=== PATIENT | female | born 2000 ===

== ENCOUNTER 2023-08-02 12:49 | Outpatient (OUT) | payer BC, MEDICARE, SELFPAY ==
[2023-08-02 14:23] LABS: HCG Quantitative <1 mIU/mL
== END 2023-08-02 12:50 | disposition home or self-care (01) ==
LOC: LAB 12:50
PROVIDERS: PCP Family Medicine; Visit Provider Obstetrics & Gynecology
DX: N92.6 Irregular menstruation, unspecified (principal)
CPT/HCPCS: 36415; 84702

== ENCOUNTER 2023-09-21 13:00 | Outpatient (OUT) | payer BC, SELFPAY ==
--- NOTE | 2023-09-21 13:08 | US_ITS ---
The [address] [address] Patient Name: VERONICA CHATTERJEE MRN: [id number] date: 2000 Sex: F Assigned Patient Location: US Current Patient Location: US Accession/Order Number: [id number] Exam Date: 09/21/2023 13:12 Report Date: 09/21/2023 14:35 At the request of: ROBERT GILBERT Procedure: US pelvis w/ transvaginal EXAMINATION: US pelvis w/ transvaginal HISTORY: Polycystic Ovarian Syndrome E28.2 COMPARISON: No relevant comparison available. FINDINGS: Transabdominal and transvaginal images The uterus is normal in size, contour and echotexture, anteverted. Uterus measures 8.0 4.0 x 4.5 cm. Endometrium measures 7.1 mm, normal. The right ovary measures 3.4 x 4.0 x 3.4 cm. Normal color and Doppler flow. Area of anechoic echogenicity measuring 3.2 cm, simple cysts. The left ovary measures 2.8 x 1.7 x 1.7 cm. Normal color and Doppler flow. Scattered subcentimeter follicles Trace amount of free pelvic fluid in the cul-de-sac likely physiologic in amount US/US pelvis w/ transvaginal IMPRESSION: Scattered left ovarian subcentimeter follicles. Findings do not meet criteria for polycystic ovarian morphology Electronically authenticated by: JASON BARNES Date: 09/21/2023 14:35
--- OUTSIDE RECORDS SUMMARY | 2023-09-21 13:13 | XMS_ITS | CCD ---
Author Organization [facility] Care Team Providers Care Asset Protection Manager Name Role Phone PHYSICIAN, DEFAULT Unavailable Unavailable PHYSICIAN, DEFAULT Unavailable Unavailable DYLLAN SANDOVAL AM Unavailable Unavailable DYLLAN SANDOVAL AM Unavailable Unavailable SELF, REFERRED Unavailable Unavailable SELF, REFERRED Unavailable Unavailable Michele Angulo Primary Care Unavailable Alex Cai Admitting Unavailable Alex Cai Attending Unavailable Michele Angulo Primary Care Unavailable Michele Angulo Attending Unavailable Michele Angulo Primary Care Unavailable Michele Angulo Attending Unavailable Michele Angulo Primary Care Unavailable Franks PACToney Admitting Unavailable FranksToney Calle Attending Unavailable Michele Angulo Primary Care Unavailable Alvino Estrella Admitting Unavailable Alvino Estrella Attending Unavailable CHELSEA Bee Admitting Unavailable CHELSEA Bee Attending Unavailable Michele Angulo Primary Care Unavailable Dami Hines Admitting Unavailable Dami Hines Attending Unavailable Michele Angulo Primary Care Unavailable ROBERT GILBERT Attending Unavailable Allergies Allergy Classification Reported Allergen(s) Allergy Type Date of Onset Reaction(s) Facility (1 source) Ondansetron; Translations: [Zofran] Drug Allergy [facility] Repository Problems Problem Classification Problem Date Documented Da te Episodic/Chronic Unclassified (2 sources) Unknown / UNK(Unknown) Onset: 12-19-2017 Results Test Name Value Interpretation Reference Range Facility Coding Summaryon 11-13-2022 Coding Summary HTMLBase 64 MpkqlxczZLo3tQg+PGhlYWQ +ZT8QWSJqO02diCLbyZ7sW3 NMTElOSywgQVBQTElOSyIgb dYeJE3lrMMnJYQx IC8+FW1rOEZjQlwxzWXui7D 1lGS3V00nyu1jHUkyiWL3RY BvQoHervzbg0bzbDb4UAqnT mluOyBt OWFpeF58ODZ6zO17Ox27jEE zrTAch8sqaIo1JoLrPKIfWU G2yOubJOcfc8IkZWByA19xb NTyx4V7 ZYQqpJimlLIgPxWlmYM4tP6 oPUhpunirk8wyccjiVhw8ot 92sKAjr8E3rFO1S9GkpgB8T GJvbGQg ZccafPSEaL1ujzdzd5iuupb iDrEfCFEgRYk9FVz4VGGdsX lyKwIsAE25EKT0GFSctwLkC 2FsLWFs wGzvJgL1f5M0Fg3BD9KDEuj lS8IRQZPJTOgftIX+PC90cj 17S9XeQazqKdh4WVTlWVU1r CC4wF6c PQEpCVmrn7X6mDO1L9PxqqP aoi3lq4xiJVMlAMufY87tiF Hzl8I0ZJCdgAR4ZBHrmBcbO iBzaG93 Oyc+XSTbcIrem6BpJcmnh1q uu0swiLw1CcjrXTHggoLurT plYET2g0AeAe0tLUNxkFI0m NF5rJ6e BxYkMdM3UZheM238HnHqaAA oQpbeA84kN0KnbYA+PHRyPj v6ENSewHoeFU5zH6IsEMNch mctbGVm zPzfIH8xBQYicymaBHSfwO2 jSRXeK8z7GzKeQzL2WVijY0 HvXJEjkjzmSz39zB6yTcPuY hG3LYzr R8NoukZ5HLIkxSFzTJskLXE 5B02gu6B0PSPpGKDyANS8nI X1tS6jeCesnyxcvORukYxtp mVydGlj XJazGJgmL332TFMspEppFuC vZGluZyBEYXRlOiAgMDYvMj YvMjAyMzwvdGQ+PMSiLBC9a WxlPSAn pWXaSIxaDr0xsViazOawGL3 oVJNwevghBFJjeC6bYEGdbM HdgEfcFG3lXUZdueqsp303D iAxMHB0 WRKdnQLoU2RxpF9zXgDbGYB bPKBeD7LfiDRrBAzbE870XF ouWsD8LIZxwuPoX1RsQPXje WduOiB0 c2N5Ct5Jg3SoticxH8GyfAR zRrTjIefyLUi2A6GyKgpvtM I+VA17JJFjRU81CIy6DQK6r WxlPSdi YORzK4FroR2tJnAmKMMlBPS kOyc+PHRhYmxlIHdpZHRoPS ppRMOaZfFwdFqlJT3yBz6eS GVyLWNv oLxhoSZuHlRnf5stHFLxHRc hNG3teXbmA2OpsIQ0ITFlo3 r5Ck42I85bZ0OyzNW+PGNvb OD5tDK5 cD7wOhUlLrX5CMloE186WkM zePFuAnhli3rzx1evwMj4Hp B0EXNldrDjmVpeFNU5v0HjZ d41R01m IHdpZHRoPSIxNSUiIHZhbGl siu2qlX0dYe9+BBAcmNK3jM U2zK4fPgHqWrK1BVydH097P nRvcCIv Hqkke0xqh4qrtUu0PaBjHDQ ycrIhbRhkZSB6d2OvUi70O7 IwmGtau0IxVnl3sa56yKHku 3O1jID4 F3PbZVCxmndyiPYjlYhlHY0 pCHSevncuVGRwtJ4iSDEfQ8 q8IhAoJfI6MJigU5DxbrG1U GJvbGQg AFScbFNZrZ8rvwdjn7wnuls jHaSaGLWuYDu1WWz3LXMbbN ydBbQsFJH3AsH6YLQ2gBFyf C5gdGah otuvbG5yBdw+PDX9cETfcSR ALQ3qTynfaZQ+IZEhQFR1bL ggVIsyIBUjbW9eEOUwA5k1U iAwLjA1 DHuaN1UwokK1OPQxpUNtSUS chNNOzH9neetbe0jodrsgRr GmVSVbGHl9FNd1STJvrRekT iBsZWZ0 AjK9RFO3pXXfmP6ylZrewct rdH3qUll+ChbbeJtpCCJ7AC x5R0XlUef9GUUzeOevGD9zf GFkZGlu Ds2jiEvvhUrwLK5aXTBbrla qv495SwKhi9imAXFgeNVzSX odWLB9K43wh1L9ROZxIPWcP GG8rCC4 rE0gsBcvohqhbMVjyCdcjsY xvHzbOFofSSxiI367OPCcrA rcIsUqRWh4X4XzTuz3TLWvv FljOQ6s nEMqWQwdVi0gaDedxIfuVX1 mRLMmmgesr258GrZpf8thRW VvhPBzDMsbWIV7A27ul3S7G CMwMDAw RLH1vGV8lD6otLkfirxalDN mdDsgdmVydGljYWwtYWxpZ2 89OBOspNsmLkOrkTk5P2XqF gp4PARk pGxoJD0ndONmXZwaCl6weEu taTwpJL2yEDTovcmvl967Rp Jfa3ecAHXbeKTaIEvsUIT1I 44pd6L2 OWQbYMJgZOZ7mIP7pP5xeFk nbjogbGVmdDsgdmVydGljYW okVTnxJ411EFGguEjuXdAsd GllbnQg IYboDFh0H7NeTktxlPA+PC9 8WXNpTX89aRWwpRBkk6mmqE d1SsBlOOXjIMH8uArsJPkqk 3JkZXIt S85htYDbx9Z3SVIhmZhbuNS eJqJxbTL3zG0eKJpblktrx4 fpwtpwApasd9ncox04eZ24K 29sIHdp ZHRoPSIzMCUiIHZhbGlnbj0 iwB1bGq5+ESYrkZB0jQA3uY 4iVJYiGbS7NWyrB849FxBgf CIvPjxj l3wul0rniCk3ClO9TGLwxzV biVflMFP7y8CwDm91F27lZV dpZHRoPSIyMCUiIHZhbGlnb b1eaC7e Ii8+LMVbeSE5fBO5lS1lKkB hYlK6SOlnG157FkErlUTwAp dwA56aG2AlpPT+LARfLxt5S CBzdHls RL7vlBVqRCtuCw4nOAO8DqJ vFqQkIKezE5FtUNKwisktva fofRR0ELKlSNKglA81Ty7tc DogMTBw yUTZmY1zpdhxf1qnosgrRsT rLEDxYBq4RIr8UOIkrIzlGv GpINH7IyK8JZI2oYVwgX8fd Glnbjog kQ2pC4MtVPDrnrboNo84lU9 eQsUxJmS0XZsbChp+Uk9EUk fHFAHbMNOHSXeAV0SlWiWVP BY6S2Vc Fqx1VDBfpOdbSX8pdBZkCQa aDy9bsXfnbKgjTQ1eEHRots wyQQQkuA2iYFKowCDfdZxyR F6kJJBl itxdy752KtLuPAG3JGLddYS dO9OkjI8aUxOoLFJsEWFgN6 NivLXgUVpwX927EJyyVsT7X HZlcnRp W9GjEKZmhXwoZaE2z1I4Jn2 hGc7tDH3tAFYdGR16UH53cU Lpz6G0dCJ9X1DqXSAtaoqqz mlnaHQ6 LGXmJZUxeS56nHJnKGdyAu3 il0K3e158TDUrFVDdmG38Ar 1aqJyfSGHhbUHGzS0uqkhso 2xvcjog RcOaZOViTVr9EAr3AQHkbRu dNzJyKFY1UsN2LZZ9vZJlfC 5whOgxretcyD6tXez+MjAgW WVhcnM8 A1WxQki1MHCngIclIH3vwQL wBVcwXn4piJtuxCctYX4uCD JrzidwCEIazQ8fUMCweTZau YsvMQ1w OIDtyxfvd246UhRwUES9CFP mmVBlB7XeeT1cXqAeSSIoPM GtM5WngORtKUssX522FDmkD dJ4ZHBl neVpE6RxMRYinHtuNwI3o9F 6Pf3FPV3NNET6H0KmVpb9OI GkxXciRM5vaWUcQPmxEk7jv WdodDog FQ0uKJBotnojJLLcsA1rVWW bhOUfnSakLN3pTDBcpcmix4 00MzDaERY2OQDvqQCnT5Xzh A3aJgKy WVUyMXUyA9SroMHpLOlnC34 5QSqeRrP1YGBtbnTcD6FcHN FcjRbzAjT1l5K2Wu6LdWYhM 5RmS3t7 M4YaRqzmzCN+EU79LDAmRQ3 6uIIpaATjh6hzwRr1ZjWjCM HzNRB2zDggLUcbw2IfAWGbD 29sbGFw e5Y8KSQmtOleiYLsEaZqcIC 1fN3pCKfhurwzy2zclqmbDt grl2hpze50qO30D77hEOupC HRoPSIz HDFaFCVheHbdth5oeH4fQc1 +MRYqdKF1lUI3jR1fWvMkTa D6JCyuH502AcSqmOHpIprag 2lmc3xi aYf9EsYoSPDmakGxjZchQEG 1q2CzIw25J86ySInvJRZcSJ DeYRJgQFYleBzghn3mnP2zT i8+PC9j q1yxsy51pR70gOU+PHRkIHN 4xXwvACvsPTEepI4bDFqdOr R6QQPkQjWogQ57qSWcSMreP x8zqEqe pTqfPX9yXTPkjowfc837JaK ns2ghCSHavBJmYZevZFC4N0 4yk6L3ZZDiFJByLOZ8xIK5p Q0nvEnc bjogbGVmdDsgdmVydGljYWw jPDjtP034SNAlqYxyTjCgrP LcN6vjdeNBAF0kLqfdxYO+P HRkIHN0 gNekOMqzOKKvmL3aWBIuF8x 8AqHtTvY8SVauF2FfctO4VI BpmVFyBOVjoTTZgP0gwxpgq 2xvcjog QfScYFBhSQs7FPj2JCOdzLz kYfGgUEO2RoX9DPR3cTBydS 3lnVbuqwpfwA5kFwa+RklOO jwvdGQ+ LVKtMVJ4kKxbZXveYSFhpV7 tROStX8n0UgFtXrI3JNtpK0 IkaqL9YPEzpLApNCLclLHGg Z9nwngh e7jupvnjHeHtLIZmUVn7ZZt 2GLHbxKoeSaEpFFQ1NsF3XX L4hSSkuU0pgZcaznwofX8xF yc+TVJO OjwvdGQ+DPKhFCM0nZzvHOv uLIIvmO3jVCUzJ5e3EwHoHz Z6DSnvC5XteqS7PHBilAEsR TBwdCBU sM3ddaiqy9phxrxkHeLzWCV gCLn2BIg6VWKthSvhAeCzAL B2UnW9RQQ2iJZbfA5dbMahd odkdG4z Oyc+BTU8VOQ9CE44CC37B1R yPjwvdGFibGU+PHRhYmxlIH dpZHRoPScxMDAlJyBzdHlsZ M7wTo6g ZGV (more content not included)... [facility] Coding Queryon 11-10-2022 Coding Query Can you please docum ent the HPI, ROS and physical exam for this chart? Thanks. [Electronically Signed on: 11/12/2022 05:16 EDT] Dami Hines DO [Verified on: 11/12/2022 05:16 EDT] Dami Hines DO [Transcribed on: 11/10/2022 14:11 EDT] [facility] Coding Summaryon 11-09-2022 Coding Summary HTMLBase 64 ZcyxhvrbZYy6sHf+PGhlYWQ +RF5YWDFhN78frAOpkU6bQ8 NMTElOSywgQVBQTElOSyIgb nQxQK4beERtUUIn IC8+OE7lOJErBjwweRXgj9D 9zES4X89mbo7kMVcpdAN1IN BeZzHtunscm3ydiDn0FNhlK mluOyBt RFXgcN42WDG4oD13Yg64sXI pyJSsy1alqLx9NvIzPDHeTD K8cOzsUAxsc7QaJKIyZ51zc UQow6D6 CYIkdKergJGkTuYueTX3vR6 lINtfskmqu5xukwxxFma2bb 40lMKab1J9kOQ4G8DosqY0R GJvbGQg SmyteTREiK7sabzyz8povkp tXlGfVUJsAMp0XZb0QSMfyG txViIqHU07CHA8QDOflrJfR 2FsLWFs mQgpEqO5z0M6Hg7SM8SYBof jC7FTVQRDNWushOR+PC90cj 35X1TuAdxjNkv4KCSpEMA8d AZ0xO7m IVDiMYrqv2O8zAX1B9ByizH nkm7xk9ryBBOcBWtmV39zjU Qql8E1REGkmHB3EEWlnRigK iBzaG93 Oyc+MGSssKkfh8HuUafeg4i gc2wovYm5MnlqWCZkadAeyB dfAIT0o4LvCp3qDGPitOG6p SB7sV5j PmFxXqI3XTayZ745FiDhqZB nSbgaV58uI1JszNE+PHRyPj q4VWQxiDwfKP3cQ4NfKEKmo mctbGVm qSklFC0xLEZjqktnAJRxwY8 oVJPzL2t3RzAhAcI0PQcfH0 ZzAVAjoftvIz21cB9fJkXqD nH8AZks P1FwiyE7RNKsxUEkKSqiBWS 1N73yg7K4DNVyGXRlJGG7eH M0bY2ceSopuekhuZOoaQyyz mVydGlj CNbnZDklO195OIUwiHmjZcU vZGluZyBEYXRlOiAgMDYvMj IvMjAyMzwvdGQ+QGUuJQO5v WxlPSAn mYJwTPnfUi0aaAupeJwoNU9 zPNZqiyfzCQDyaU1yNHTleK WpuMjcMG5rECKkhsusy644Z iAxMHB0 IFHwoNIrM5YntT5qPcGbEEF pIKFsN6LauWSfPIsrP849XR slToV4DHWyfnSqB7VaSZXuw WduOiB0 g1J4Tz8Jz1SriqksR9KspMF iJrEaFcvmVEi3W2VhUopryE I+RR32ZLGrPN73QMp3VUW3b WxlPSdi UAQzD2JfbK1nInRgHCBsMUT kOyc+PHRhYmxlIHdpZHRoPS llWDVbXhXzyQcqKI8qXa0pZ GVyLWNv vWdvgMLzDsXpp4djBLXiFBa hOL6xzTylH5MlcZH4XFJqk9 u6Te38E47fR4YtiBC+PGNvb HP8uUW7 wB8oGpFoUmM4OHllO732WeZ pcNMwOsdxu1sya8ayrKe5Ni Y6QXNeuiTcbIyuRTF8c8WuB c19C63r IHdpZHRoPSIxNSUiIHZhbGl faa4ofA9aCf0+OTVsfJB4mE C4vY8zQqTdVgD6MOtkQ748K nRvcCIv Kplfh4fck7corQk3LlGdDSA hfvQwnRviWQN8w8OzRi67A3 XauRixx6ZpVzs5oz01lOYnq 1M5tXA9 L6CrXIIecibrjBLobYswUS5 fZGUqmbcfTKInnG3cJBQwU5 y6AbLnNpQ9CWojO7HbkjJ0N GJvbGQg CKLksWDBxV0pjsnef4pizpd uQcZbGBVnEXg4QPq8PQNbtW lhFhUvNSR5BsC3GXF9dUSuj Z9drQcq ashoeU1nEwy+CGL0pVHylNF KDT3uVmrxuKB+SQIqMNY1pG jhJSfuNYCkyV4cFXBfB0s4V iAwLjA1 VYxgQ6WcckJ4OGXagEPbDXO nxRZDoH1zouhde8rgnuhmVx ZaVPIyXIj5TCp4SMInqIxzO iBsZWZ0 TqP5WKY2jHSdrU4loGnxehm ybJ3fYdn+RbfviOkbZTT7BE p6R5QvTgv7POKaoEtmFR4dp GFkZGlu Zo8uiBdqzYsrOZ3nVPRrcwn bq518FfObn7jjSNIanXLhTQ eySPD6S53jw7K6DKEbAHKcU NQ4qUS5 wS2huZieshfdgUYdxHgxhtI owNsuJWfdOSkvD608QKXbgI cxRsXtKMp4K7VzHow2QVMhp JbbTX3k aEQoQElaHn4wcKdxbVakRB6 hWJLlxeiwr682OqYch5viGP GouVJwQEeoMTX0S26xd8H9E CMwMDAw AOR4tGP6cK0stDvierdibTB mdDsgdmVydGljYWwtYWxpZ2 35SRPryOouRgMquQv8V9UvS bz2HYLo zVesCD0tmVClEMiwYo2ufYm ewItpFO0wXPEcmzfxc599Qf Car1erIHOznSVrYXkiLFH9R 94du4N7 ZGVyLRSmRKG9iYT5cW0evYn nbjogbGVmdDsgdmVydGljYW keNWgmV496GQQscVfyOeLgf GllbnQg DSkgQSv0P7CnKtdnsCC+PC9 0WAJhAQ25pJRvbAHig7xpnS y6GxVoRABbRPK2wLoyDTfqs 3JkZXIt E90aiGNic5W7BGYouVwjdGV zEcFlwJI4lT1zPLlaiyhgz2 cuyfplDoezy0eydp43aH46Z 29sIHdp ZHRoPSIzMCUiIHZhbGlnbj0 cyZ8hLx5+QONqbZY8bWQ9gP 8pIREiCnQ9QXknF762TnUuq CIvPjxj f7iqg6sgcCp8QjI1GCUvazM ppHitJMW8e2TmMm12Y88oAF dpZHRoPSIyMCUiIHZhbGlnb y1laA5v Ii8+AFCjrSK8aGN2kQ6fLfR uFwS7IWdbR852ZdVsrMVlSh quJ99lR5XiuHY+FNNkLiv2C CBzdHls HC0lcCLkCGwgXd6eRKT2UdY nLwMcWVrhS1LdZSMcacmwqq gjdNM2YTEpCWTouD92Iw9mv DogMTBw pEOKpA9mkesdg5coqspvNdE iVWYqOUc6XOy3JEIjvApaGe SoXIJ2UoY3MDA3xIKraN9ay Glnbjog lI3uN5ApHVQmdqvkSh89dI2 fCnWsGpW2AMwgBxj+Uk9EUk pEMHIyJWFPVPiGN3NuNpALG QA1W5Di Nqj6FDEoqWgjIJ2tjVFmLTl rFh6vkLnzlYbhKS3sJQQifk epUDEemX8jJXQriGJfzXefB C8cNEBz doadh627BuAkQFI2SELrwMR gO7VpaE2tYvEzICVmLMFzP5 UnlEEvHQxfC696TDuhEzG1I HZlcnRp S1PaCPWitXsxGaI1n5U7Xh9 uGx6tOV2qCDMbYY26ZJ62lT Pvf4P1ePE1Q5ZuGBHrcixfe mlnaHQ6 PGCoMSUnuQ85kNUqDCkuUy0 ij9C2d330YXUhVVWcyC15Ns 7ymHcwMBTwdTMQwP1xzvbym 2xvcjog UmHpZDVtDYd8CFg3EGObaVb xIbKpAAE6HdB4TBD6vMYroZ 8msUouncbphN7bXqx+MjAgW WVhcnM8 O0TyQvo4JQJftUceTX6zfHS fGJlyYy8lsRjgjYvwTN6mGL GpggpeZLGgbT1hPRRuoOKtp DziVD1n PEAshniev999MtHkFXZ7ABR jbTBeT2IhoC8iKwKuMGXmIM KkQ4IbdVOtOUttR363OFznQ pX0HMIr phTkR3JaVLGhoCnxOhM5s2G 3Gr3YIS1YNRC6W5EgTkm9NB RtgAemRA6jaKZbYQnjYa2yl WdodDog VY2gCLMmuihrYLMdfR0dUWE qnMPmeIygIS8mAPBijqami2 07IrOdXCW5HFXpoCCbK2Iqt W6pJsPq RTGyVBOyF1JqsAGwMLdyT23 7MFfiRbB7ATVwqyTbK0FdVN HelAhaNnJ6e7J8Xa0CDHrqu GQ+PC90 bd89G9XeQyduCaa0XWJoLMG 3gQT8eC9xLNTwMRlwn1N4yZ R0X7NietVsyl3ep7zpRUYiA FadN41s eOZvx9N4JQYitPG2RBWweEc wOuKgmP47Xwe+PGNvbGdyb3 LnPmkgk9ilk0lnnYk6DlKeD SIgdmFs cGapWND4j7EfIg45L11uDVd pZHRoPSIzMCUiIHZhbGlnbj 9rdW1dBz6+DYVlwLH2mSL6x P2pDsEg XlV8CZjgA845IqGvlJTmEmj qb8ual8mxqPb7WoYbVCTrvh CisIpqFDX9i7JnMh52Q8Bml Xsoh5Jv Tte9oq89iOHdv3Q1xHG4O9H hUPGaxipexEIgmWzrAK7sLH XbtsxvDTCzpQ6sMTAjF9x3U iAwLjA1 MOpoW2AsshP3BAFshOJrFJG kwRQTuI3ktrzdj8hdqyxcRs XzBHUjDSy5XOw8ODRtlXxxC iBsZWZ0 KeN7TTG4xPQozQ8yoSgxgsl thM2nNge+IVa5z1ppiQHhYW 1ueUL4FT51JT95fSEln8J9c XC2A6Dd FFJeipzllxlozXR5BVLbNDF roV34Jv9dzGvpQm1kLHJmKP U0YHHdxVFnY6UnwL4hRpUgW DAwMDAw F1RcyBZlTRpoO163LTtmSbF 7IVVscwKyD2BqTJAnmCqfIj X4d3Z1Xf8UGG50KZ37AN52a AHqb9A6 yEE6M8LySQMxhjmuwpzvdAZ 8BUUfWGReqS90On3qdVufPp 6mNWLsIJK5KAHqgBXzI9Xzx H8wFcGk LSWwLVNuR9WizMZrMZruX91 4KIseNbQ1AKQqpnZsN5AyJO IajKczGfF9m5D3Bp0BKt25I K48IK76 sBUyc7T5mVV3V4YrFLAemob zurcotKQ4GRIaGVNadM57Gs 2xeMqbCr3dGSBsKGZ6DGSgh APoR3Kg cO7bBhDuXRAzKADpE3NtdFP nDMhqM589TKedInB0RPKngo ZcT0DeKXCdaDrhAsT6p7C7K k6DHIll vvr0P7IlBdxrsUB+WO21QGH cFL39aWGaiNYva6cvzNe2Mb DxITBwCDO9iWjzJLkpx1PeV LBmM81u bGF (more content not included)... Normal [facility] ED Clinical Summaryon 2022 ED Clinical Summary [facility] - Emergency Department [address] [place], [place] [id number] ED Clinical Summary PERSON INFORMATION Name: TERESA ISAACS Age: 22 Years Sex: FEMALE : 2000 MRN: Acct#: Visit Reason: Dog bite: hand; Hand injury - Minor; ANIMAL BITE / L HAND Arrival: 11/06/2022 21:35:49 Discharge: 11/06/2022 22:37:00 LOS: 000 01:02 Check In: 11/06/2022 21:35:49 Checkout:11/06/2022 22:37:00 Address: [address] [place] [id number] PCP: Kev BREEN, Michele Hayes PROVIDER INFORMATION Provider Role Assigned Unassigned Dami Hines DO ED Provider 11/06/2022 21:39:27 Drew RN, Ting Valero ED Nurse 11/06/2022 21:45:47 VITALS INFORMATION Vital Sign Triage Latest Temperature Tympanic Temperature Temporal Artery Pulse Rate 89 bpm 89 bpm O2 Sat 98 % 98 % Respiratory Rate 16 br/min 16 br/min Blood Pressure /94 mmHg /94 mmHg MEDICAL INFORMATION Medications Given: Medication Dose Route amoxicillin-clavulanate (Augmentin 500 mg-125 mg oral tablet) 1 tab(s) PO tetanus/diphth/pertuss (Tdap) adult/adol 0.5 mL IM bacitracin topical 500 unit(s) TOP Allergy Information: No known allergies PHYSICIAN DOCUMENTATION DISCHARGE INFORMATION: Discharge Disposition: Home Discharge Location: Home PATIENT EDUCATION INFORMATION Instructions: Animal Bite, Adult, [id number] Follow-Up: With: Address: When: Michele Angulo [address] [place] [id number] Business (1) Within 3 to 5 days Comments: home keep ointment on the wounds Stop the amoxicillin start the augmentin Call Dr Angulo for recheck, or return to the ER, if the hand is not improving. You are welcomed to return anyttime T H DONNY< ER PHYSICIAN< H B [facility] [place] DIAGNOSIS: Animal bite wound Patient Understands: Yes - Patient/family/caregive r verbalizes understanding of instructions given Comment: [facility] ED Note - Otheron 11-07-2022 ED Note - Other [id number] TGTIFF [facility] ED Note-Nursingon 11-07-2022 ED Note-Nursing Bacitracin and gauze dressing applied [facility] ED Patient Summaryon 023 ED Patient Summary [facility] - Emergency Department [address] [id number] PATIENT DISCHARGE INSTRUCTIONS Patient Information Name: TERESA ISAACS Age: 22 Years Date of : 2000 Reason For Visit: Dog bite: hand; Hand injury - Minor; ANIMAL BITE / L HAND Arrival Time: 11/06/2022 21:35:49 Primary Care Physician: Kev BREEN, Michele Hayes Attending Physician: Dami Hines DO Comment: Visit Diagnosis: Diagnoses This Visit Animal bite wound (T14.8XXA) Dog bite: hand ([id number]) Hand injury - Minor ([id number]) The Pharmacy at [facility] is open Sunday through Sunday from 9A to 6P and Sunday and Sunday from 9A to 5P Prescription Information: If you have been given a prescription for narcotics, seek immediate medical attention if you have any difficulty breathing or any sudden status changes such as confusion and sleepiness. If you or anyone you know is experiencing suicidal thoughts, mental health, alcohol and/or drug addiction problems; contact the [facility] 11/12 Crisis Hotline -Text 2CZSI w[place] 470[address]. If you received any narcotics, sedation, or any other medication that causes drowsiness for the next 24 hours, unless otherwise directed: ? Do not drive a car. ? Do not operate machinery such as power tools, lawn mowers, drills, sewing machines, or stoves ? Avoid alcoholic beverages and drugs for allergies, nerves, or sleep ? Do not make important personal or business decisions or sign any legal documents With: Address: When: Michele Angulo [address] [place] [address] Business (1) Within 3 to 5 days Comments: home keep ointment on the wounds Stop the amoxicillin start the augmentin Call Dr Angulo for recheck, or return to the ER, if the hand is not improving. You are welcomed to return anyttime Glenna HINES< ER PHYSICIAN< Barrett Richmond [facility] Medication Information: The exam and treatment you received today in the [facility] Emergency Department were for an urgent problem and are not intended as complete care. It is important for you to follow up with a doctor, nurse practitioner, or physician?s ssn/ssbn assistant navigator for ongoing care. If your symptoms become worse or you do not improve as expected and you are unable to reach your usual health care provider, you should return to the Emergency Department, we are available 24 hours a day. For those patients who have received Radiology results, the interpretation of your X-ray as given to you by our Emergency Department physician is only a preliminary report. The Radiologist will review your films and if there is a change in the diagnosis you will be notified by phone. Please make sure you have provided a working phone number so we can reach you if necessary. In the event that you had a lab culture while you were a patient in the Emergency Department, you will be notified by phone if there is a need to change your antibiotic. Please make sure you have provided a working phone number so we can reach you if necessary. [facility] Emergency Department has provided you with a complete list of medications post discharge. Please inform your supervisor agency appointments/provider of your visit and for further instruction on these medications. Any specific questions regarding your chronic medications and dosages should be discussed with your primary care physician(s) and/or pharmacist. New Medications [id number], [address] [place], [place] [id number], [phone] amoxicillin-clavulanate (Augmentin 500 mg-125 mg oral tablet) 1 tab(s) Oral 3 times a day for 5 Days. Refills: 0. Medications to Continue That Have Not Changed Other Medications amoxicillin (amoxicillin 500 mg oral tablet) 2 tab(s) Oral 2 times a day for 10 Days. Refills: 0. busPIRone (busPIRone 15 mg oral tablet) 1 tab(s) Oral 2 times a day. hydrOXYzine (hydrOXYzine hydrochloride 10 mg oral tablet) 2 tab(s) Oral 4 times a day as needed for anxiety. medroxyPROGESTERone (medroxyPROGESTERone 150 mg/mL intramuscular suspension) inject 1 milliliter intramuscularly EVERY 3 MONTHS. risperiDONE (risperiDONE 1 mg oral tablet) 1 tab(s) Oral 2 times a day. sertraline (sertraline 50 mg oral tablet) take 1 tablet by mouth every morning. Visit Information Allergies: Substance Reaction Symptoms Type Comments No known allergies Drug Vital Signs: Vitals and Measurements this Visit (last charted value for your 11/06/2022 visit) Vital Signs This Visit Temperature Temporal: 36.6 DegC Peripheral Pulse Rate: 89 bpm Respiratory Rate: 16 br/min Systolic Blood Pressure: 141 mmHg Diastolic Blood Pressure: 94 mmHg SpO2: 98 % Oxygen Therapy: Room air Measurements This Visit Height/Length Dosin.100 cm Height/Length Estimated: 165.100 cm Weight Dosin.200 kg Weight Estimated: 120.200 kg Problems (more content not included)... [facility] Electronic Messagingon 11-07 Electronic Messaging --- --- --- --- --- --- --- --- --- From: Directtest ([id number]), Directtest To: TERESA ISAACS Sent: 11/07/22 05:41:39 AM EDT Subject: Discharge Summary Ready to View A summary regarding your recent visit is available in the Documents section of your Health Record. [facility] ED Note - Physicianon 2022 ED Note - Physician Patient: TERESA ISAACS Age: 22 years Sex: FEMALE : 2000 Associated Diagnoses: Animal bite wound Author: Dami Hines DO Basic Information Time seen: Date & time 11/06/2022 21:40:00. History source: Patient. Arrival mode: Private vehicle, walking. History limitation: None. History of Present Illness The patient presents with This patient, who is in good health, and is currently taking amoxicillin for sore throat, for 48 hours, and is improved, comes to the emergency room now with some very superficial bites to the right hand which just occurred about an hour prior to arrival, when she was trying to break up a dog fight between her dog and her dog. She has no numbness or tingling to her hand, she can move it well, her dog has had shots, she does not know about the second dog, which was a vagrant, and has run off. The patient states her dog is in good health otherwise. She cleaned up her wounds at home, with soap and water, and her roommate put a couple Steri-Strips on, 3, on 3 different incisions, and she had a dressing applied, and was brought to the emergency room by the roommate. She denies heart valve disorders, states she has no synthetic joints. 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 So on exam she her right hand is involved, two-point discrimination to the 1-5 is normal. Range of motion is normal, 3 little very superficial lacerations on the order of 2 to 3 mm in length which do not require closure present on the dorsum of the hand, no foreign body was evident, these did not appear deep enough to contain foreign body and no foreign body was palpated, these were cleansed, and tetanus administered, and instructions for stopping the amoxicillin and starting Augmentin which is a better antibiotic for dog bites. It will still take care of her strep. Looking at her hypopharynx, its injected, no RPA PPA or SENIOR HEALTH EDUCATOR, she has no stridor, there is no anterior posterior cervical adenopathy, her voice is excellent.. Past Medical/ Family/ Social History Family history: Entire family history is negative.. Social history: Social & Psychosocial Habits Alcohol 11/15/2017 Alcohol Use: Never 06/23/2022 Alcohol Use: Current Substance Abuse 11/05/2022 Substance use: Current Type: Marijuana Frequency: Daily Tobacco 11/05/2022 Smoking tobacco use: Never tobacco user Electronic Cigarette/Vaping 11/05/2022 Electronic Cigarette Use: Use, within last 90 days Type: Nicotine infused Use per Day: 1-25 Inhales/day . Medical Decision Making Orders Launch Orders Pharmacy: Augmentin 500 mg-125 mg oral tablet (Prescribe): 1 tab(s), PO, TID, for 5 day(s), 15 tab(s), 0 Refill(s) Augmentin 500 mg-125 mg oral tablet (Order): 1 tab(s), PO, Once tetanus/diphth/pertuss (Tdap) adult/adol (Order): 0.5 mL, IM, Once, Launch Orders Patient Care: dog bite form (Order): dog bite form, 11/06/2022 22:01 EDT, Launch Orders Pharmacy: bacitracin topical (Order): 1 keshav, TOP, Once, Launch Orders Patient Care: dressing (Order): dressing, 11/06/2022 22:02 EDT. Impression and Plan Diagnosis Animal bite wound ([id number] T14.8XXA, Discharge, Medical) Plan Condition: Improved. Disposition: Discharged: time 11/06/2022 22:04:00. Patient was given the following educational materials: Animal Bite, Adult, [id number]-[id number]. Follow up with: Michele Angulo Within 3 to 5 days home keep ointment on the wounds Stop the amoxicillin start the augmentin Call Dr Angulo for recheck, or return to the ER, if the hand is not improving. You are welcomed to return anyttime Glenna HINES< ER PHYSICIAN< Barrett Kahn. Counseled: Patient, Regarding diagnosis, Regarding diagnostic results, Regarding treatment plan, Regarding prescription, Patient indicated understanding of instructions. [Electronically Signed on: 11/12/2022 05:15 EDT] Dami Hines DO [Verified on: 11/12/2022 05:15 EDT] Dami Hines DO Normal [facility] ED Clinical Summaryon 2022 ED Clinical Summary [facility] ? Urgent Care [address] [place], [place] [id number] Clinical Summary PERSON INFORMATION Name: TERESA ISAACS Age: 22 Years Sex: FEMALE : 2000 MRN: Acct#: Visit Reason: UC - Sore Throat; SORE THROAT, FEVER Arrival: 11/05/2022 11:11:40 Discharge: 11/05/2022 11:36:00 LOS: 000 00:25 Check In: 11/05/2022 11:11:40 Checkout: 11/05/2022 11:36:00 Address: [address] [place] [id number] PCP: Michele Angulo MD PROVIDER INFORMATION Provider Role Assigned Unassigned Foster Moore MANAGER SQL Nurse 11/05/2022 11:13:30 Lynne Bee PA-C ED PA 11/05/2022 11:14:27 VITALS INFORMATION Vital Sign Triage Latest Temperature Tympanic Temperature Temporal Artery Pulse Rate O2 Sat 96 % 96 % Respiratory Rate Blood Pressure /85 mmHg /85 mmHg MEDICAL INFORMATION Medications Given: Allergy Information: No known allergies PHYSICIAN DOCUMENTATION DISCHARGE INFORMATION: Discharge Disposition: Home Discharge Location: Home PATIENT EDUCATION INFORMATION Instructions: Strep Throat, Adult; Antibiotic Medicine, Adult Follow-Up: With: Address: When: Michele Angulo MD [address] [place] [address] DIAGNOSIS: 1:Strep pharyngitis Patient Understands: Yes - Patient/family/caregive r verbalizes understanding of instructions given Comment: Normal [facility] ED Patient Summaryon 023 ED Patient Summary [facility] ? Urgent Care [address] [place] [address] PATIENT DISCHARGE INSTRUCTIONS Patient Information Name: TERESA ISAACS Age: 22 Years Date of : 2000 Reason For Visit: UC - Sore Throat; SORE THROAT, FEVER Arrival Time: 11/05/2022 11:11:40 Primary Care Physician: Michele Angulo MD Attending Physician: Lynne Bee PA-C Comment: Patient Education With: Address: When: Michele Angulo MD [address] [place] [address] Strep Throat, Adult Strep throat is an infection in the throat that is caused by bacteria. It is common during the cold months of the year. It mostly affects children who are 5?15 years old. However, people of all ages can get it at any time of the year. This infection spreads from person to person (is contagious) through coughing, sneezing, or having close contact. Your health care provider may use other names to describe the infection. When strep throat affects the tonsils, it is called tonsillitis. When it affects the back of the throat, it is called pharyngitis. What are the causes? This condition is caused by the Streptococcus pyogenes bacteria. What increases the risk? You are more likely to develop this condition if: ? You care for school-age children, or are around school-age children. Children are more likely to get strep throat and may spread it to others. ? You spend time in crowded places where the infection can spread easily. ? You have close contact with someone who has strep throat. What are the signs or symptoms? Symptoms of this condition include: ? Fever or chills. ? Redness, swelling, or pain in the tonsils or throat. ? Pain or difficulty when swallowing. ? White or yellow spots on the tonsils or throat. ? Tender glands in the neck and under the jaw. ? Bad smelling breath. ? Red rash all over the body. This is rare. How is this diagnosed? This condition is diagnosed by tests that check for the presence and the amount of bacteria that cause strep throat. They are: ? Rapid strep test. Your throat is swabbed and checked for the presence of bacteria. Results are usually ready in minutes. ? Throat culture test. Your throat is swabbed. The sample is placed in a cup that allows infections to grow. Results are usually ready in 1 or 2 days. How is this treated? This condition may be treated with: ? Medicines that kill germs (antibiotics). ? Medicines that relieve pain or fever. These include: ? Ibuprofen or acetaminophen. ? Aspirin, only for people who are over the age of 18. ? Throat lozenges. ? Throat sprays. Follow these instructions at home: Medicines ? Take yipo-rnu-fpicija and prescription medicines only as told by your health care provider. ? Take your antibiotic medicine as told by your health care provider. Do not stop taking the antibiotic even if you start to feel better. Eating and drinking ? If you have trouble swallowing, try eating soft foods until your sore throat feels better. ? Drink enough fluid to keep your urine pale yellow. ? To help relieve pain, you may have: ? Warm fluids, such as soup and tea. ? Cold fluids, such as frozen desserts or popsicles. General instructions ? Gargle with a salt-water mixture 3?4 times a day or as needed. To make a salt-water mixture, completely dissolve ??1 tsp (3?6 g) of salt in 1 cup (237 mL) of warm water. ? Get plenty of rest. ? Stay home from work or school until you have been taking antibiotics for 24 hours. ? Do not use any products that contain nicotine or tobacco. These products include cigarettes, chewing tobacco, and vaping devices, such as e-cigarettes. If you need help quitting, ask your health care provider. ? It is up to you to get your test results. Ask your health care provider, or the department that is doing the test, when your results will be ready. ? Keep all follow-up visits. This is important. How is this prevented? ? Do not share food, drinking cups, or personal items that could cause the infection to spread to other people. ? Wash your hands often with soap and water for at least 20 seconds. If soap and water are not available, use hand bakery technician. Make sure that all people in your house wash their hands well. ? Have family members tested if they have a sore throat or fever. They may need an antibiotic if they have strep throat. Contact a health care provider if: ? You have swelling in your neck that keeps getting bigger. ? You develop a rash, cough, or earache. ? You cough up a thick mucus that is green, yellow-brown, or bloody. ? You have pain or discomfort that does not get better with medicine. ? Your symptoms seem to be getting worse. ? You have a fever. Get help right away i (more content not included)... [facility] Patient Handouton 09-07-2022 Patient Handout Custom [address] [facility] Ext[facility] [phone] Introduction Teresa Crews needs to be excused from: X Work ____ School ____ Physical activity the following date: 09/07/2022. Health Care Provider Name (printed): Michele Angulo MD Health Care Provider (signature): Date: 09/07/2022 This information is not intended to replace advice given to you by your health care provider. Make sure you discuss any questions you have with your health care provider. Document Released: 10/31/2001 Document Revised: 11/24/2016 Document Reviewed: 12/07/2014 ? 2017 Elsevier [facility] Coding Summaryon 02-07-2023 Coding Summary HTMLBase 64 EnjwfihfWNo5rYj+PGhlYWQ +[id number] hZEB2FKGDXFLAGBR1JZJ2zk WO6ZUtiZ9SziaYo UspybRFlRK12LGm2VGG9pBn jZTtdyC8puQTuT9z3VsZaZK 63cI77GLhlTPWtNbW2KiYka jsgbWFy T3blEaQtpPClNab+PHRhYmx lIHdpZHRoPScxMDAlJyBzdH lhTN3tYt7dRLZoXOVqmRdvg HNlOiBj x8ccYQDyCZqiDG7ryCrpG0T lfJZ2FEPey0p5Vi36kND+PH XcKDN9eKczIMccd917IeQkl 5cpAMT3 zUYcACuzMAH8I65yk0Q2UVI oZPUhHQE6vEA2yS5ncTfeib qjO5OmeLVrPxS4EVW8cSFji Q1hcQda xeadpO0dWlz+R66JIP5BEUD RFA2JQof1Y5ChEfwtoHE+PC 25PBJzQE59mOOhzZCat4cyn Tl0VyYv KCBoENB9rJkyLQrox1NoXIU sS20deNWmx6E4WIFgjTetfI WcQeOueJT6wB9jWDvevihqw 2hvdzsn Qkjoj4kfhp70yP55Y32tZUq mCBTaGKW4MHMnJEMofWmpxb 7wfD2aHt7+AUqjw7qxj3qch Bq8DiKb JCOapmIzeSgbEEL8n5KtAq9 1J8GjlDkyy1MqDzy3ul41hW Zqn8P7tLL1WEtnBUEpvX5pN WxlZnQ6 VZOeQiWirC31wSGwMRtuTv2 nkAlrbDhsAM2uSCTxqiapEN RglQ2oFGYeeHAonIllHU7eQ TBpbjtm o297BeSkHFO4OJXknPTyI6L lbS0fDlRrMODaTZDyM5UchH SpKTgnV434DEqvWxP8MJXxn bTaG1Rx FWGnlPtlMtO4q1Y7Sc1Zf9H bsnoyRBH1QRlsHVJoLyJ3Al FmVlY6Q1FaZxk4WSKudXtqD J8vX0Lu KNEcdzpebyalvQN3LRRxIDK kuO84iYDmWYqxOi3om2K1b8 60SOQyXPWlqQ57Xj8gvIqoO TBwdCBU rT4zwpppe9nmscuhXoEkPMR zWEh7NWo1VJLefUtaKyOkRW Z8FlX6IXR8gWAwzC2qbGxqw joqpF0f Oyc+Q88boV3pBEM9QAI7sbt tKGExfwOnBG94WZ76Q7YfRb wvdGFibGU+PGRpdiBzdHlsZ K0lFgEa j4elo6PiXYirB5QlRNTbJUe uXga1JIQlKAQ0qAB0hK1pAQ JxOAepl1Q8dAA5R6HxfdPvv l6nn0aq DFRlMVwtG41xjIAwi6E4HOP sgZD8RMBddFusJsAdbM98Wr c+CXRraRlqd2RxOlvzy0ntl 3bjmYj5 AdNfUPIxuzYolYimLYY0z6K eSl74J49iVUhiOVSoKHNsJQ PjAOWtbPnlvm2wzR4dBj0+P GNvbCB3 xOX0jQ4vSOMqRkH1TAcpV51 9AqItpDLnNfzqb5pbv0cveA p6TvOoVFNuobSvjQafMGA7j 1HuDr03 V80iEEryHLVdZINcYHUoTFV aqLsxyz4elG4nLe4+PC9jb2 isak23wH65nGW+IUKrLET5h WxlPSdw DRXamK5xZQeyXpB7AGFdNfE doF90uDZoIKbbAc3apRrdpB vzXU4vPTBdblvqc498UiBwk 2xkIDEw aVKdZJfmGYP6D61mj7W8VCZ gCIFkHTY4zYA6kG1ftYrfvw ogbGVmdDsgdmVydGljYWwtY NecO490 IHRvcDsnPlBhdGllbnQgTmF dQLj1T8QiScj1RYLzlQykZP 6jkLHpDTnzMz7wpRrtiRwbU G7nSMJd sffbi570NbGhv7jrPKNybGY qTJwdONP7P95nu2I9DBBrBM NwWUB2pZC6iP3cmDmgwgqjj GVmdDsg svVefImnLBecDUhsN511BZU tfZwiDuPmwqRpWGQhfCP2KY 94WJ88xHSbx0C0cCT3O2MwS GRpbmct aqomnFG2KMTzQXZqvD32Iy4 zoDkbHy5qTVAcFJP4SAAajZ EoT1VgiP8cTeBzSJUwQHHeY 3RleHQt TYsnN285DEwhKaC1KJGpodD cN9DsOMNpoUrfIkI6m3K0Lr 7AM4C3CY87BO13tSXvp1O0a UH6B4Qc TCOisqeplmimlPQ2XKNrQNU akR07Mn6bvRcaCn5mEYRuVT L4LHDefUSpJ5YqbG1yRqOoR DAwMDAw M0DhnQPzSJdyX232CCdxChM 7FKMfowSbB7PeRFHffEckDb A5l2W0Ic4BVSp7MJ91BB53n CGvb0M7 oLE3A9HqDMTsjzxxfuckmCS 3CLXxKYBsjM39Ew0gxZkpOx 4zYNFdKDY0WYLuvQFuQ7Ury S9hQhBz TMVoLXXdT2IhoZEpNQsxD47 4MZyyHnE6LFDxzpOhH6KdYO IcaTcqLyG3d3M5Go5NMREqG F60RRC4 yIE2CI47FB67P8QlLittqGT ibGU+PHRhYmxlIHdpZHRoPS pcFMKpMtVvrUxbMT7lOx2wT GVyLWNv wBmrfGUoOyVnj3eyUNMwJVv jPV0euHjwG5SfbQJ0KHHsm1 t5Fr58G69jI7OfiMC+PGNvb YB2aVM9 fG7yArIsAxA6ODnoF920PkO xqBDiMhaio7fuc6htpSp3Eu E8TKAzbhMqdYgvSHQ9g2QrJ t13H90y IHdpZHRoPSIxNSUiIHZhbGl xuv7qsQ5pJy8+HYKeyKV9aB F5gN0zEcWoYtE4VVnpV238T nRvcCIv Lunxn7gqh4ijfAv4ErMsYWE kezIeaMkrDJH7g2IyRw00S4 QljTxyx1FkPgx3al42cJXfl 5S4sPE0 O0VdSABixkwioVBtwIioSH5 vYVMwnwhpKMGecD5kDDYdZ2 v0NmAxLtT4FHnhF1MqjwV8P DEwcHQg LPugEUF0E78bb9C3NPIcMHU jCFK5cUK9gR3lhUwzaknpbA VmdDsgdmVydGljYWwtYWxpZ 246IHRv oPveIETzrW8lGFYzqXAbqAl gKS9sRQViazktTwIKIGUHQ6 QCKmqpDGcTV7QDPTAHLuOCM B82UN13 sYOug9E3gMG6H9RiWTGhqob jasyigLC5VRMcLKJvfW44kQ EbQXnxFb5tm9P4b770TFFrF DUwaW47 Em6seIvvUJQfdDAXpG5jzfl gc2gedicqRsXvRFOmPPs5CM a6SPBqmJsuDdTfJAF7DyP4B MX2bOEr eL4upPuigqcaeG2yFcg+MDM vMTkvMjAwMzwvdGQ+PHRkIH U7gTyyFXgpBPIpbC8hMKKqG 5h5ViZj CfK8TRnrX4FcSZVnmwzuMk1 7wI8gMeSqFrD4KCrsS1Ubgd A1CFTviDZpOLieULE1C34mo 1Q6KABb FNYkSKK5yGL5cT9zeEvskip gbGVmdDsgdmVydGljYWwtYW jgH504QUWbsOwjNvE1RAhqV XJzPC90 QR90jDRpz0R6nJM7D1WmNLO oagszwcmwyMH0ZFOlCQIwjJ 23cCWkIVeaQh5ce0A9n276F DAuMDUw cE16Wz6ueAcoERZmdDKStM4 uronkk0rgqcjqMrXfFSFwFX g6YPp1VJUrkZtuZfDqRQI8L vZ4OYG0 cDWsjW5tlVipiqdeqG6aCuq +QeBUNQyJRV27FI80sCIyq7 W2wLG9J7VaRRUudtmubword LL6UDMw HNDwmF54dXXuYNrkGn4tg5Y 6k757FRIxATJybY15Pa8ieF ixJVZoiYBCjC4pqkkxn9oqm jogIzAw QIEeMHu5BDw6ITZvcFmmSnZ lGCA4PgU3RNZ3iHIenU7obE vweazylB8iYjf+A5F8I0RaE jwvdHI+ AA02CSOoVS18qZXpeJSyk2q hiAl5InYcOABxLAX1aMsuXS dss5RxGTXcG65sjOGfk0D0J GNvbGxh dLRzUkNbyAM0zI4rPDyvojg um3xfclqfDrzvx5ikjb69oY 02L29yHZaqOJJuFPEzJVOfM HZhbGln yy7cmD2kWr7+EVPfvPJ3dIB 0iK5wPyQjNzS1AOmlN512Qh EjjSCmIdwni7yjq9ticYg1E jIwJSIg buJyaOewPQK5x6XxZy64V87 sIHdpZHRoPSIyMCUiIHZhbG awfl1utU3ePw2+HR5vg3uzz n37aQ01 dHI+PTMpSYW0eZusQWcbRFD tyR9gQZxsKwT7GPIaDrAfuG 49iAUpFQehCm3wdDuwyVmnP P9nDEXi jgyji414KiYff3ujHZFdyDK rIMzfQEA7L29km4V0NXVmHO WtKDZ3tNK4tQ3pgFrzllmnq GVmdDsg ltBpaJlvMCasQZovY035QFE tsOcqVmOzlIClH1vefmMHGR 1lOjwvdGQ+JKCzWFZ2bGlaI SdwYWRk wY3sFBKqY6o1AyPpUzL5ZYd pU0FsyhX0HAHvhYOrDHGnxE LVnQ8sbqydr5lzsavtQbQkR DAwMDt0 KFf2GQWmuAbmPcXlOSP1EcN 7QIY0iEEjyB9zpYygllvoyR 9wOyc+RklOOjwvdGQ+PHRkI IX9wByq ERaeHQSdfB8qGCAlR8t6RiC cCvJ7YXccE0OavwE2WMZswH WtVDLiiLTUdW2pefrjj6vfb jogIzAw ZIMtBVg1ZQm7EDJekXszOhQ mZHK0WkC8OVU7aXKcmU8tbD yubbjhaJ8rQpn+TVJOOjwvd GQ+PHRk MAI1gFjwQHajIWIziL5eDXX xC7x9MvJaWlD6NHdhG8Cisy M2AIHueQVxCNCpxXGAiV7aw ojdo8vs lamgGtDbCCUrXKg2KGj3KJP eqIohDiGpFQX3SpN7YZI1wR IkkP8qdRfdgcxvyN7bNmv+U KY8YWN8 KE27PN30U0RvLfjcaVIgiVQ +PHRhYmxlIHdpZHRoPScxMD PfOpEvkKybDT7tNr2pYWXdW WNvbGxh cHN (more content not included)... Normal [facility] ED Clinical Summaryon 2022 ED Clinical Summary [facility] ? Urgent Care [address] [place] [address] Clinical Summary PERSON INFORMATION Name: TERESA ISAACS Age: 21 Years Sex: FEMALE : 2000 MRN: Acct#: Visit Reason: Vomiting; NAUSEA, VOMITING Arrival: 06/23/2022 10:39:04 Discharge: 06/23/2022 11:29:00 LOS: 000 00:50 Check In: 06/23/2022 10:39:04 Checkout: 06/23/2022 11:29:00 Address: [address] [place] [id number] PCP: Michele Angulo MD PROVIDER INFORMATION Provider Role Assigned Unassigned Alvino EstrellaC ED PA 06/23/2022 10:43:15 Susan Stevens MANAGER SQL Nurse 06/23/2022 10:46:51 VITALS INFORMATION Vital Sign Triage Latest Temperature Tympanic Temperature Temporal Artery Pulse Rate O2 Sat 98 % 98 % Respiratory Rate Blood Pressure /80 mmHg /80 mmHg MEDICAL INFORMATION Medications Given: Medication Dose Route ondansetron (!-Zofran) 4 mg PO Allergy Information: No known allergies PHYSICIAN DOCUMENTATION DISCHARGE INFORMATION: Discharge Disposition: Home Discharge Location: Home PATIENT EDUCATION INFORMATION Instructions: Nausea, Adult, Josh-jg-Vzmy; Hypertension, Adult, Txsg-kg-Ofju; Sinusitis, Adult, Tkzb-av-Nfzn Follow-Up: With: Address: When: Michele Angulo [address] [place] [address] [id number] [facility] (1) Within 1 week Comments: Please follow-up with Dr. Angulo, call the office schedule an appointment to be seen in a week or sooner for continued care, please take your Zithromax and Zofran as prescribed, take sszq-lsv-xuigqqi Tylenol as needed for any headaches or body aches, drink plenty water stay hydrated, and return back to the urgent care center for any worsening symptoms, concerns, or complications. DIAGNOSIS: 1:Acute maxillary sinusitis; 2:Nausea; 3:Elevated blood pressure reading Patient Understands: Yes - Patient/family/caregive r verbalizes understanding of instructions given Comment: Normal [facility] ED Patient Summaryon 023 ED Patient Summary [facility] ? Urgent Care [address] [place] [address] PATIENT DISCHARGE INSTRUCTIONS Patient Information Name: TERESA ISAACS Age: 21 Years Date of : 2000 Reason For Visit: Vomiting; NAUSEA, VOMITING Arrival Time: 06/23/2022 10:39:04 Primary Care Physician: Michele Angulo MD Attending Physician: Alvino Estrella PA-C Comment: Patient Education With: Address: When: Michele Angulo [address] [place], [place] [id number] Business (1) Within 1 week Comments: Please follow-up with Dr. Angulo, call the office schedule an appointment to be seen in a week or sooner for continued care, please take your Zithromax and Zofran as prescribed, take jaab-tfu-xlzlnwm Tylenol as needed for any headaches or body aches, drink plenty water stay hydrated, and return back to the urgent care center for any worsening symptoms, concerns, or complications. Nausea, Adult Nausea is feeling sick to your stomach or feeling that you are about to throw up (vomit). Feeling sick to your stomach is usually not serious, but it may be an early sign of a more serious medical problem. As you feel sicker to your stomach, you may throw up. If you throw up, or if you are not able to drink enough fluids, there is a risk that you may lose too much water in your body (get dehydrated). If you lose too much water in your body, you may: ? Feel tired. ? Feel thirsty. ? Have a dry mouth. ? Have cracked lips. ? Go pee (urinate) less often. Older adults and people who have other diseases or a weak body defense system (immune system) have a higher risk of losing too much water in the body. The main goals of treating this condition are: ? To relieve your nausea. ? To ensure your nausea occurs less often. ? To prevent throwing up and losing too much fluid. Follow these instructions at home: Watch your symptoms for any changes. Tell your doctor about them. Follow these instructions as told by your doctor. Eating and drinking ? Take an ORS (oral rehydration solution). This is a drink that is sold at pharmacies and stores. ? Drink clear fluids in small amounts as you are able. These include: ? Water. ? Ice chips. ? Fruit juice that has water added (diluted fruit juice). ? Low-calorie sports drinks. ? Eat bland, jhwt-du-ahlrqq foods in small amounts as you are able, such as: ? Bananas. ? Applesauce. ? Rice. ? Low-fat (lean) meats. ? [place]. ? Crackers. ? Avoid drinking fluids that have a lot of sugar or caffeine in them. This includes energy drinks, sports drinks, and soda. ? Avoid alcohol. ? Avoid spicy or fatty foods. General instructions ? Take krmq-obv-dvrbpkr and prescription medicines only as told by your doctor. ? Rest at home while you get better. ? Drink enough fluid to keep your pee (urine) pale yellow. ? Take slow and deep breaths when you feel sick to your stomach. ? Avoid food or things that have strong smells. ? Wash your hands often with soap and water. If you cannot use soap and water, use hand bakery technician. ? Make sure that all people in your home wash their hands well and often. ? Keep all follow-up visits as told by your doctor. This is important. Contact a doctor if: ? You feel sicker to your stomach. ? You feel sick to your stomach for more than 2 days. ? You throw up. ? You are not able to drink fluids without throwing up. ? You have new symptoms. ? You have a fever. ? You have a headache. ? You have muscle cramps. ? You have a rash. ? You have pain while peeing. ? You feel light-headed or dizzy. Get help right away if: ? You have pain in your chest, neck, arm, or jaw. ? You feel very weak or you pass out (faint). ? You have throw up that is bright red or looks like coffee grounds. ? You have bloody or black poop (stools) or poop that looks like tar. ? You have a very bad headache, a stiff neck, or both. ? You have very bad pain, cramping, or bloating in your belly (abdomen). ? You have trouble breathing or you are breathing very quickly. ? Your heart is beating very quickly. ? Your skin feels cold and clammy. ? You feel confused. ? You have signs of losing too much water in your body, such as: ? Dark pee, very little pee, or no pee. ? Cracked lips. ? Dry mouth. ? Sunken eyes. ? Sleepiness. ? Weakness. These symptoms may be an emergency. Do not wait to see if the symptoms will go away. Get medical help right away. Call your local emergency services (911 in the [place] Do not drive yourself to the hospital. Summary ? Nausea is feeling sick to your stomach or feeling that you are about to throw up (vomit). ? If you throw up, or if you are not able to drink enough fluids, there is a risk that you may lose too much water in your body (get dehydrated). ? Eat and drink what your docto (more content not included)... Normal [facility] Urgent Care [place] 023 Urgent Care Record [facility] ? Urgent Care [address] [place] [address] PATIENT DISCHARGE INSTRUCTIONS Patient Information Name: TERESA ISAACS Age: 21 Years Date of : 2000 Reason For Visit: Vomiting; NAUSEA, VOMITING Arrival Time: 06/23/2022 10:39:04 Primary Care Physician: Michele Angulo MD Attending Physician: Alvino Estrella PA-C Comment: Visit Diagnosis: Diagnoses This Visit Acute maxillary sinusitis (J01.00) Elevated blood pressure reading (R03.0) Nausea (R11.0) Vomiting ([id number]) If you received any narcotics, sedation, or any other medication that causes drowsiness for the next 24 hours, unless otherwise directed: ? Do not drive a car. ? Do not operate machinery such as power tools, lawn mowers, drills, sewing machines, or stoves ? Avoid alcoholic beverages and drugs for allergies, nerves, or sleep ? Do not make important personal or business decisions or sign any legal documents With: Address: When: Michele Angulo [address] [place] [address] Business (1) Within 1 week Comments: Please follow-up with Dr. Angulo, call the office schedule an appointment to be seen in a week or sooner for continued care, please take your Zithromax and Zofran as prescribed, take hfve-oiw-nougpgl Tylenol as needed for any headaches or body aches, drink plenty water stay hydrated, and return back to the urgent care center for any worsening symptoms, concerns, or complications. Medication Information: The exam and treatment you received today in the [facility] were for an urgent problem and are not intended as complete care. It is important for you to follow up with a doctor, nurse practitioner, or physician?s ssn/ssbn assistant navigator for ongoing care. If your symptoms become worse or you do not improve as expected and you are unable to reach your usual health care provider, you should return to the Emergency Department, we are available 24 hours a day. For those patients who have received Radiology results, the interpretation of your X-ray as given to you by our Urgent Care physician is only a preliminary report. The Radiologist will review your films and if there is a change in the diagnosis you will be notified by phone. Please make sure you have provided a working phone number so we can reach you if necessary. In the event that you had a lab culture while you were a patient in the Urgent Care, you will be notified by phone if there is a need to change your antibiotic. Please make sure you have provided a working phone number so we can reach you if necessary. [facility] has provided you with a complete list of medications post discharge. Please inform your supervisor agency appointments/provider of your visit and for further instruction on these medications. Any specific questions regarding your chronic medications and dosages should be discussed with your primary care physician(s) and/or pharmacist. New Medications [id number], [address] [place], [place] [id number], [phone] azithromycin (Zithromax 500 mg oral tablet) 1 tab(s) Oral every day for 5 Days. Refills: 0. ondansetron (!-Zofran ODT 4 mg oral tablet, disintegrating) 1 tab(s) Oral 3 times a day for 3 Days. Refills: 0. Other Medications ondansetron (!-Zofran) 4 Milligram Oral once. MAGRU. Medications to Continue That Have Not Changed Other Medications busPIRone (busPIRone 15 mg oral tablet) 1 tab(s) Oral 2 times a day. hydrOXYzine (hydrOXYzine hydrochloride 10 mg oral tablet) 2 tab(s) Oral 4 times a day as needed for anxiety. risperiDONE (risperiDONE 1 mg oral tablet) 1 tab(s) Oral 2 times a day. sertraline (sertraline 50 mg oral tablet) take 1 tablet by mouth every morning. Visit Information Allergies: Substance Reaction Symptoms Type Comments No known allergies Drug Vital Signs: Vitals and Measurements this Visit (last charted value for your 06/23/2022 visit) Vital Signs This Visit Temperature Tympanic: 36 DegC Peripheral Pulse Rate: 89 bpm Respiratory Rate: 16 br/min Systolic Blood Pressure: 130 mmHg Diastolic Blood Pressure: 80 mmHg SpO2: 98 % Oxygen Therapy: Room air Blood Pressure Method: Manual Measurements This Visit Height/Length Measured: 165.10 cm Weight Measured: 120.38 kg Body Mass Index: 44.16 kg/m2 BSA Measured: 2.35 m2 Problems List: Problem Onset Comments Depression Patient Education Nausea, Adult Nausea is feeling sick to your stomach or feeling that you are about to throw up (vomit). Feeling sick to your stomach is usually not serious, but it may be an early sign of a more serious medical problem. As you feel sicker to your stomach, you may throw up. If you throw up, or if you are not able to drink enough fluids, there is a risk that you may lose too much water in your body (get dehydrated). If you lose too much water in your body, you may: ? Feel ti (more content not included)... Normal [facility] Coding Summaryon 03-16-2022 Coding Summary HTMLBase 64 XiwzaohpOBz7hIw+PGhlYWQ +OK8OOPLlR36biGOsbS2OR2 oJIU7ZGALWZLGUQD1AQW1pl PK3FLybW9GsptKs OkwaeBEgUM39QHz8UBZ7rXk gODvdjP1brZUzO8r7EkMoFH 31mG53BDtgDTGhYqG1ViYbs jsgbWFy G7xiHgYmrDLvBts+PHRhYmx lIHdpZHRoPScxMDAlJyBzdH soUV4rSk6aAFQrOMYpuEtag HNlOiBj k4chEDVhVChmFR4fxIbxS6N fxJQ4WPVyt7z9Vu28kCL+PH BoRDI7dBhpQCgyg480NtTui 9bhGYB9 rJBiYKvjDVH6R73mq6V6HJE vKYAjBQB4qNJ1vL2sfNvonh euF1ItsHHmNiI3UJV9vYJho Y3mbIgy ujabpQ3rDfp+G74RBT8AKOU KEM5AGxf5H0SsAfxwkMZ+PC 21GSFdJG18kWVwcXJws4anb Vi5MqTs FSTaTSI0lZqgGQbkt0AaXRU fR38uhEMmo8P0CWGkgPrpxL UyQkSypTV9nN7uBKzlvnwza 2hvdzsn Acjez2scba16hN96S09uCVn mXIMfGSD9LUObXUSifXlbzc 5eaW5jAw1+LUcez5yeu4swg Lg3ZbDi KVCsrhTvpWwxAZU8q4WcJm5 8Y8DnrOmzi5ZxThe0hb24cA Xcl5J9iVS1WSzzCHHbsT7dQ WxlZnQ6 ONBzGhKxbF57gAVzWOxaIa2 iaDwkhEavBP7oRDFxtwatHF VphM9qDVJfrFWosVxmGY9zC TBpbjtm v380KsRpBNG3UKEnlOIpB7W oxS4tPoUjFDGbJHTgP5JbjY LnPDayZ642JXefVyE7WNDpa zAdU7Hq FKEawIqcCkP5g4O7Hg0Jz2C zphrwOCB2WCovGXDyGnT1Wu TtWyE5S3WqAnz3QYAdqJcgQ J7kO5Ny QCAsvcqwoknhrHO9WHOtLEU icC44zGGmSLvtVa0uf1Z0f7 57TXZtWJSuuW37Pd4asGswF TBwdCBU aO5lsgekx2ubjqevWrTbAFK zHXk6XIn9GMMtoGkcDlYkGD E6ZbY8MSA7pVPgzL0bbZgwp fdiuH4g Oyc+C42xaP7jLEZ6ZVN0ose xVSGrbbQiDI05QL61E5UlQd wvdGFibGU+PGRpdiBzdHlsZ M6fGjBf g2otd2WiUUoxP0AdLFGmPAh iIyy3UVGsUMC2sYD5mH0yQD YnRJaqn0K9oWO4O9PdrvOtx i2sv6iz FUZnXKqtX29znNIyv4R5NMS meAD3RJHnxKevWkPfjI04Vn c+GFAvnDxag3BsDdjoc3cbm 9bonXj8 GuHvOXRbamDacIolCFU4w0L uUl14J30pYWbeMCRoFUUzHU YgJQHqiPcpjg1zyE4hIl2+P GNvbCB3 gGL7eN4gAVDnTgZ3IRlxP22 9FlKwaEDdWrimz3uak0kcnJ c7ZiOuKHMdvzWmfUuxUAF3o 6HtEp40 U94hNGpeARXwJKIqHGPkIDG apPfgsj1rrF0vMs1+PC9jb2 vdbg14zG98iUE+XMWfLNX1i WxlPSdw VYNorS5rESsbIyS6SZItUzM pjM27fQXfURotPu3fhJstxZ xxYP7bJEFezvyqv115AkHyt 2xkIDEw xWDtXDwlUOM2D74ja5N5SCU vPEAgQBC1aKK0gY0wxVrmsa ogbGVmdDsgdmVydGljYWwtY JeuZ063 IHRvcDsnPlBhdGllbnQgTmF vGRp8A5EdRxh5HACrgWjzFJ 9xsPLrGMfgAg8pkOykhQwuO Z0fPMIc jnakl616BhEze1qdRGJlaRL cNZpuPST2A66ae6I2POGxRC MbOIH5rUA6sX9hkVtzdotfh GVmdDsg tdIgoBzxGWgvHAakN526WZZ ovIycZgGftsQrGNTibNI6QW 04ZW35yEGca9C8kNI5Y0ZmG GRpbmct iplijBW1NAGnMFTkvW40Xg3 tiLzqPo4bDKOsNJR0ESKqmR WuR4MxsO0zBeVlQQEfKYXpU 3RleHQt KSvmJ826WRhfUjH8DOPgdjB vP1CwVRNzeJieDfP1v7I9Ag 4NK8I2QP87IJ25vGVeo5K2s PK4F7Ey OWAjjmvgwcfacLT8WDSkDAH ckJ23Ky8utFrwWb8qVVUuCV L8QJJhwVTyA0QnwU2tBrZqZ DAwMDAw N8SggIOpTLzuI157XIeuDfZ 1CKSkmySuG9BeUGSxnVoqRq A7c0D7Ok5LEIh9RK42SM34t ABxe2F0 bLE5D4JnDUOjtmrgbrznmLN 3EJWrVRGbxY74Kk4ufZrxXv 8xXHEzTPB7GGLmsMGwM2Pfc F1qIyRe AVLjFWDrB6ExuBMxDXrfF26 9LMmqRgF7FFGbmoAtI5UsGI FrlMzkCwH0f6Q9Ol0XAYHqT F03AJB5 bKZ9TU65NB22Q7MyAigirIF ibGU+PHRhYmxlIHdpZHRoPS yqPXIbPaAubBoxBV6oBe3fB GVyLWNv xItrjOZrDqEkn8woUYVoVDc fZI0ygWqsV3ZauSV1GPIwt6 i7Up16F59qE0RqwSV+PGNvb JA2fXL1 bN9kEuLgPjM0THqnW750UiJ mlOHgDktuj4pkf5iwmTm0To O4JWWndqRorOduOVN3r0RtT m63N66z IHdpZHRoPSIxNSUiIHZhbGl dni7txG2jBs8+VHNvnVM3lV D3qY7kEoKjJlT9ARraU712H nRvcCIv Kjqna9nan4uttKp6IqHbUDD vxuFfkEfrIWQ5p9AdLa89A2 GwkGpvs0QrUxd1gl07sERur 8J8aTG6 G9OyISDftlntcXEjwBhqHO4 jYQHzlantHYUvoB7xHSHbN3 z4OkNoQiH7LBpyV3DcvfV8Q DEwcHQg WBjzNCY0Y45ar5C4XXMqHXI aBTJ2qHZ8bU9fyPjcfpzrjP VmdDsgdmVydGljYWwtYWxpZ 246IHRv oBnmZFHemJ1fYHEjyNLyqQk xCL5wBSQqxkfkKdLYWNZFD0 GRGikaQCcNA0GKDJJBWxIBX W36MF36 pJGpf4G9xFE3W2SiPYGyzjp rurkniCZ3OFZyHHSawV31oV KxVGucUa6wf6S2m102UMKjY DUwaW47 Gf7snPgiGZHqpBPGfL3mlzv wm3moxjfmZwIbYTAeIIx3BN m6NRPrrJmuDcSmYJG2CyN0W MJ7bQRo eH5lzWxjxwbwqX9jGjm+MDM vMTkvMjAwMzwvdGQ+PHRkIH V8aGtcOFnpIJMkbQ6gNGHeX 5o1GuTg SyK5OZnhC6UdMFPbiqfgLh2 2vF3yZrLnChC5NCryR7Ddou F5LGUblTNtNJhhNAH2J46lc 2Y5HNHy FOOvMXL0sLN1uL1igYofbjl gbGVmdDsgdmVydGljYWwtYW ieE934XXVmsFtfEyC7HZkxM XJzPC90 DH76pAZwy1E0cEW7V1GbMGM ttxmlwcpoyHM4GPReZCVsjK 40zDCxRWzdMg9bm2B1n786X DAuMDUw iA07Ta9tiWakYJNmiONVzV7 xsgnuz3zpwxrtGsQnTARiSD q2GCv8BGRplUrhCpKaLVD3B yF9KAY8 wMItmF3arSecvlfckO9tNio +DzURHDuSRC09BS47oBQku6 Q2hWP0A4WsCZBltxmcnibsp UK2YYUg GQYevW32qYEaEUpuIu0vi5Q 1k983WAWrNNNovY38Bu4fbW nwXGAgtUIMxL2biiyvc9lmj jogIzAw FSOqURo7WIa4ECXbfHpgElG nYQD9WoQ2XUO7vGPifA5jhD bhjxipgC4nOri+R3P9T9NvE jwvdHI+ IO81CIUhTL70wRHjkVQxn3e ihSd3AyMfDARuQBM5fMcaDB zrh6ToRZIeN86jbZKjn9V8F GNvbGxh yXQmGuYzgIV1vL1eSLzfkgs ur5qhyezrNwiaj8tuyx09pU 53V84vYLrqNMJwOGNjOQBxW HZhbGln os2uiS4hNs5+XNJwcPN9eIX 6xI2kAiOeUqO0WVyvE394Sk ZewXKaBfblg0wpu8nkyPx5D jIwJSIg vgSkoRglIGK8y7PlXp43B07 sIHdpZHRoPSIyMCUiIHZhbG tpos2wvP5yDb5+ID5rs1ral j55cR90 dHI+QMYxZCF7nUeaMWrtUXB tfS5wUShuMcK0PRHoHeZcrT 57qVLsSGqyJd3elAcdvEeoK H0uWHOf yomqw579MkWub0wfPBUurKW uSWotYLD3P48mm5H0IFPnVR PxZBA0cOA2gC7qnTksnmyfx GVmdDsg qyMbqHpnROrzKVvjG193UJZ kdNjyRyHbvYOlL2sqcaKSUV 1lOjwvdGQ+HXUhXXB7uOeaF SdwYWRk pY4hSVHbU7y6XnBeCzN3NYl uC3ZatxE4ATPefACfPQTyxE QCiD9hzyooz1etwdbhKoLcR DAwMDt0 YLg1XEKwbTxkCqUfKJS3CnF 4UVD0rUPkvL0waRhooxgpzA 9wOyc+RklOOjwvdGQ+PHRkI JX1gUut HHqmMQEmbQ8jPBIpZ0w1SjZ hRjB4FXrgL7TdzwD0OFBstN KvUJRonRTDcV9ihznul3nmz jogIzAw YBFtYZu9UZd3VVDedYsbEkE uSTH7GwU1JKE0sEUhwM5xjS igsgwwyI4mRxl+TVJOOjwvd GQ+PHRk TNO5pPlwJQhmSZNozC4gWDA qW0g8QpWfEeV1ATwnZ6Ddtw I4RYZdiBHpIVXxiNRAiN7pg huqu6rp xpcfDyRaCHQqTVh8IYl7RRC inSjlJtYdJIS1JoY7XHM5kM QdrP3oyRljtlouvX9mYux+U ZG2TKP9 XS79RW27B0SkEekjlFElaIU +PHRhYmxlIHdpZHRoPScxMD MoVtPwqZujVA8hUi5hVZFqT WNvbGxh N (more content not included)... Normal [facility] C Throaton 03-12-2022 C Throat Ordered by Discern. Normal throat antonio isolated No pathogens isolated [facility] Comment on above: Performed By: #### [id number] ####[facility] (DEFAULT)[address] [address] .QC SARS-CoV-2 (COVID-19)/Fl u/RSV (GeneXpert)on 03-10-2022 Internal Control Pass Normal [facility] Comment on above: Order Comment: Order ed by Discern.[[id number]] Performed By: #### [id number] ####[facility] (DEFAULT)[address] [place] [address] ED Clinical Summaryon 2021 ED Clinical Summary [facility] ? Urgent Care [address] [place] [address] Clinical Summary PERSON INFORMATION Name: TERESA ISAACS Age: 21 Years Sex: FEMALE : 2000 MRN: Acct#: Visit Reason: UC - Fever; UC - Cough; UC - Sore Throat; UC - Cough; FEVER, COUGH, SORE THROAT Arrival: 03/10/2022 09:50:00 Discharge: 03/10/2022 11:24:00 LOS: 000 01:34 Check In: 03/10/2022 09:50:00 Checkout: 03/10/2022 11:24:00 Address: [address] [place] [address] PCP: Michele Angulo MD PROVIDER INFORMATION Provider Role Assigned Unassigned Foster Moore MANAGER SQL Nurse 03/10/2022 09:53:31 Toney Weathers ED PA 03/10/2022 10:00:06 VITALS INFORMATION Vital Sign Triage Latest Temperature Tympanic Temperature Temporal Artery Pulse Rate O2 Sat 98 % 98 % Respiratory Rate Blood Pressure /85 mmHg /85 mmHg MEDICAL INFORMATION Medications Given: Medication Dose Route dexamethasone 10 mg PO Allergy Information: Zofran PHYSICIAN DOCUMENTATION DISCHARGE INFORMATION: Discharge Disposition: Home Discharge Location: Home PATIENT EDUCATION INFORMATION Instructions: Sinusitis, Adult Follow-Up: With: Address: When: Michele Angulo [address] [place] [id number] [employer] (1) Within 2 to 4 days Comments: 3 weeks of sinusitis, yellow-green drainage, facial pressure and discomfort. Now with an acute febrile illness for the past 3 days which seems secondary in nature that is newly associated with a constant sore throat, headache, body aches. For the sinusitis she will be started on Augmentin. For the 3-day acute symptoms that she is negative for RSV, flu AB, COVID. Strep swab collected. Oral dexamethasone today. Off work for today and tomorrow. Monitor symptoms at home and return if worse. DIAGNOSIS: Aching headache; Acute maxillary sinusitis; Sore throat Patient Understands: Yes - Patient/family/caregive r verbalizes understanding of instructions given Comment: Normal [facility] ED Patient Summaryon 022 ED Patient Summary [facility] ? Urgent Care [address] [place] [id number] PATIENT DISCHARGE INSTRUCTIONS Patient Information Name: TERESA ISAACS Age: 21 Years Date of : 2000 Reason For Visit: UC - Fever; UC - Cough; UC - Sore Throat; UC - Cough; FEVER, COUGH, SORE THROAT Arrival Time: 03/10/2022 09:50:00 Primary Care Physician: Michele Angulo MD Attending Physician: Toney Weathers Comment: Patient Education With: Address: When: Michele Angulo [address] [place] [id number] [employer] (1) Within 2 to 4 days Comments: 3 weeks of sinusitis, yellow-green drainage, facial pressure and discomfort. Now with an acute febrile illness for the past 3 days which seems secondary in nature that is newly associated with a constant sore throat, headache, body aches. For the sinusitis she will be started on Augmentin. For the 3-day acute symptoms that she is negative for RSV, flu AB, COVID. Strep swab collected. Oral dexamethasone today. Off work for today and tomorrow. Monitor symptoms at home and return if worse. Sinusitis, Adult Sinusitis is inflammation of your sinuses. Sinuses are hollow spaces in the bones around your face. Your sinuses are located: ? Around your eyes. ? In the middle of your forehead. ? Behind your nose. ? In your cheekbones. Mucus normally drains out of your sinuses. When your nasal tissues become inflamed or swollen, mucus can become trapped or blocked. This allows bacteria, viruses, and fungi to grow, which leads to infection. Most infections of the sinuses are caused by a virus. Sinusitis can develop quickly. It can last for up to 4 weeks (acute) or for more than 12 weeks (chronic). Sinusitis often develops after a cold. What are the causes? This condition is caused by anything that creates swelling in the sinuses or stops mucus from draining. This includes: ? Allergies. ? Asthma. ? Infection from bacteria or viruses. ? Deformities or blockages in your nose or sinuses. ? Abnormal growths in the nose (nasal polyps). ? Pollutants, such as chemicals or irritants in the air. ? Infection from fungi (rare). What increases the risk? You are more likely to develop this condition if you: ? Have a weak body defense system (immune system). ? Do a lot of swimming or diving. ? Overuse nasal sprays. ? Smoke. What are the signs or symptoms? The main symptoms of this condition are pain and a feeling of pressure around the affected sinuses. Other symptoms include: ? Stuffy nose or congestion. ? Thick drainage from your nose. ? Swelling and warmth over the affected sinuses. ? Headache. ? Upper toothache. ? A cough that may get worse at night. ? Extra mucus that collects in the throat or the back of the nose (postnasal drip). ? Decreased sense of smell and taste. ? Fatigue. ? A fever. ? Sore throat. ? Bad breath. How is this diagnosed? This condition is diagnosed based on: ? Your symptoms. ? Your medical history. ? A physical exam. ? Tests to find out if your condition is acute or chronic. This may include: ? Checking your nose for nasal polyps. ? Viewing your sinuses using a device that has a light (endoscope). ? Testing for allergies or bacteria. ? Imaging tests, such as an MRI or CT scan. In rare cases, a bone biopsy may be done to rule out more serious types of fungal sinus disease. How is this treated? Treatment for sinusitis depends on the cause and whether your condition is chronic or acute. ? If caused by a virus, your symptoms should go away on their own within 10 days. You may be given medicines to relieve symptoms. They include: ? Medicines that shrink swollen nasal passages (topical intranasal decongestants). ? Medicines that treat allergies (antihistamines). ? A spray that eases inflammation of the nostrils (topical intranasal corticosteroids). ? Rinses that help get rid of thick mucus in your nose (nasal saline washes). ? If caused by bacteria, your health care provider may recommend waiting to see if your symptoms improve. Most bacterial infections will get better without antibiotic medicine. You may be given antibiotics if you have: ? A severe infection. ? A weak immune system. ? If caused by narrow nasal passages or nasal polyps, you may need to have surgery. Follow these instructions at home: Medicines ? Take, use, or apply nfuc-kox-xquxjcb and prescription medicines only as told by your health care provider. These may include nasal sprays. ? If you were prescribed an antibiotic medicine, take it as told by your health care provider. Do not stop taking the antibiotic even if you start to feel better. Hydrate and humidify ? Drink enough fluid to keep your urine pale yellow. Staying hydrated will help to thin your mucus. ? Use a cool mist humidifier to (more content not included)... Normal [facility] Strep Aon 03-10-2022 Strep procedure control Pass Normal [facility] Comment on above: Performed By: #### [id number] ####[facility] (DEFAULT)[address] [place] [address] Streptococcus A Negative Normal Negative [facility] Comment on above: Performed By: #### [id number] ####[facility] (DEFAULT)[address] [place] [address] Urgent Care Note- Provideron 03-10-2022 Urgent Care Note- Provider Patient: TERESA ISAACS Age: 21 years Sex: FEMALE : 2000 Associated Diagnoses: Acute maxillary sinusitis; Sore throat; Aching headache Author: Toney Weathers Basic Information Time seen: Date & time 03/10/2022 10:32:00. History source: Patient. Arrival mode: Walking. History limitation: None. Additional information: Chief Complaint from Nursing Triage Note : Chief Complaint 03/10/2022 10:00 EDT Chief Complaint cough/sore throat/fever - pt states symtoms started 3 weeks ago with sinus symtpoms, developed fevers last 3 days, greenish colored congestion, brother recently had RSV and work is concerned for covid, pt missed work last two days . 21 y/o typically healthy pt with 3 days of fever-Tmax of 102. Responds to tylenol, currently onboard. VSS 3 weeks of sinus symptoms, + green colored congestion from nose. Patient states what is bothering her most today is her constant sore throat x 3 days. She states she has decreased energy, pain to swallow, mild headache. She states when she is blowing her nose is yellow-green. Pt has been taking Delsym x 7 days without improvement. Has missed work, won't let her return without covid testing. ALL: Zofran FH: Brother + RSV on ?Sunday. ROS: Patient denies wheezing, shortness of breath, nausea, vomiting. She has not any stiff neck or rashes. Review of Systems Constitutional symptoms: Fever, decreased activity, no chills, no sweats. Skin symptoms: No rash, no breakdown, no lesion. Eye symptoms: No recent vision problems, no blurred vision. ENMT symptoms: Sore throat, nasal congestion, sinus pain, No ear pain, Respiratory symptoms: Cough, no shortness of breath, no wheezing. Cardiovascular symptoms: No chest pain, no palpitations. Gastrointestinal symptoms: No abdominal pain, no nausea, no vomiting, no diarrhea. Genitourinary symptoms: No dysuria, no hematuria. Musculoskeletal symptoms: No back pain, Neurologic symptoms: No headache, no dizziness, no altered level of consciousness, no numbness, no tingling, no weakness. Psychiatric symptoms: No anxiety, no depression. Health Status Allergies: Allergic Reactions (Selected) Mild Zofran- No reactions were documented.. Medications: (Selected) Prescriptions Prescribed Augmentin 500 mg-125 mg oral tablet: 1 tab(s), PO, q8hr, for 10 day(s), 30 tab(s), 0 Refill(s) Mucinex 600 mg oral tablet, extended release: 600 mg = 1 tab(s), PO, q12hr, for 10 day(s), PRN: congestion, 20 tab(s), 0 Refill(s) medroxyPROGESTERone 150 mg/mL intramuscular suspension: 1 mL, IM, q3mo, 1 mL, 3 Refill(s) promethazine 25 mg rectal suppository: 25 mg = 1 supp, ME, q8hr, 12 supp, 1 Refill(s) Documented Medications Documented busPIRone 15 mg oral tablet: 15 mg = 1 tab(s), PO, BID hydrOXYzine hydrochloride 10 mg oral tablet: 20 mg = 2 tab(s), PO, QID, PRN: for anxiety risperiDONE 1 mg oral tablet: 1 mg = 1 tab(s), PO, BID sertraline 50 mg oral tablet: take 1 tablet by mouth every morning. Past Medical/ Family/ Social History Medical history: Resolved Closed nondisplaced fracture of proximal phalanx of left little finger ([id number]): Resolved. Pneumonia ([id number]): Resolved.. Surgical history: No active procedure history items have been selected or recorded.. Family history: Entire family history is negative.. Physical Examination Vital Signs Vital Signs 03/10/2022 10:00 EDT Temperature Oral 37.3 DegC Peripheral Pulse Rate 93 bpm Respiratory Rate 18 br/min Systolic Blood Pressure 128 mmHg Diastolic Blood Pressure 85 mmHg SpO2 98 % Oxygen Therapy Room air . General: Alert, no acute distress, Not ill-appearing, Skin: Warm, dry. Head: Normocephalic, atraumatic. Neck: Supple, trachea midline. Eye: Pupils are equal, round and reactive to light, extraocular movements are intact, normal conjunctiva. Ears, nose, mouth and throat: Oral mucosa moist, Tympanic membrane: Bilateral, no erythema, External ear: Canal, normal, Sinus: Maxillary, moderate, tenderness, Nose: Moderate, discharge, swelling, Throat: Mild, erythema, not with exudate, no palatal petechiae. Cardiovascular: Regular rate and rhythm, No murmur. Respiratory: Lungs are clear to auscultation, respirations are non-labored. Gastrointestinal: Soft, Nontender, Non distended. Back: Nontender. Neurological: Alert and oriented to person, place, time, and situation, No focal neurological deficit observed. Lymphatics: Exam: not anterior cervical, not posterior cervical. Psychiatric: Cooperative, appropriate mood & affect, normal judgment. Medical Decision Making Rationale: 21 y/o patient has had 3 weeks of sinusitis, yellow-green drainage, facial pressure and discomfort. Not responding to Delsym. She now has an acute febrile illness for the past 3 days which seems secondary in nature that is newly associated with a constant sore throat, headache, body aches. For the sinusitis she will be started on Augmentin (more content not included)... Normal [facility] Urgent Care [place] 022 Urgent Care Record [facility] ? Urgent Care [address] [place], [place] [id number] PATIENT DISCHARGE INSTRUCTIONS Patient Information Name: TERESA ISAACS Age: 21 Years Date of : 2000 Reason For Visit: UC - Fever; UC - Cough; UC - Sore Throat; UC - Cough; FEVER, COUGH, SORE THROAT Arrival Time: 03/10/2022 09:50:00 Primary Care Physician: Michele Angulo MD Attending Physician: Toney Weathers Comment: Visit Diagnosis: Diagnoses This Visit Aching headache (R51.9) Acute maxillary sinusitis (J01.00) Sore throat (J02.9) UC - Cough ([id number]) UC - Cough ([id number]) UC - Fever ([id number]) UC - Sore Throat ([id number]) If you received any narcotics, sedation, or any other medication that causes drowsiness for the next 24 hours, unless otherwise directed: ? Do not drive a car. ? Do not operate machinery such as power tools, lawn mowers, drills, sewing machines, or stoves ? Avoid alcoholic beverages and drugs for allergies, nerves, or sleep ? Do not make important personal or business decisions or sign any legal documents With: Address: When: Michele Angulo [address] [place] [address] Business (1) Within 2 to 4 days Comments: 3 weeks of sinusitis, yellow-green drainage, facial pressure and discomfort. Now with an acute febrile illness for the past 3 days which seems secondary in nature that is newly associated with a constant sore throat, headache, body aches. For the sinusitis she will be started on Augmentin. For the 3-day acute symptoms that she is negative for RSV, flu AB, COVID. Strep swab collected. Oral dexamethasone today. Off work for today and tomorrow. Monitor symptoms at home and return if worse. Medication Information: The exam and treatment you received today in the [facility] were for an urgent problem and are not intended as complete care. It is important for you to follow up with a doctor, nurse practitioner, or physician?s ssn/ssbn assistant navigator for ongoing care. If your symptoms become worse or you do not improve as expected and you are unable to reach your usual health care provider, you should return to the Emergency Department, we are available 24 hours a day. For those patients who have received Radiology results, the interpretation of your X-ray as given to you by our Urgent Care physician is only a preliminary report. The Radiologist will review your films and if there is a change in the diagnosis you will be notified by phone. Please make sure you have provided a working phone number so we can reach you if necessary. In the event that you had a lab culture while you were a patient in the Urgent Care, you will be notified by phone if there is a need to change your antibiotic. Please make sure you have provided a working phone number so we can reach you if necessary. [facility] has provided you with a complete list of medications post discharge. Please inform your supervisor agency appointments/provider of your visit and for further instruction on these medications. Any specific questions regarding your chronic medications and dosages should be discussed with your primary care physician(s) and/or pharmacist. New Medications [id number], [address] [place], [place] [id number], [phone] amoxicillin-clavulanate (Augmentin 500 mg-125 mg oral tablet) 1 tab(s) Oral Every 8 hours for 10 Days. Refills: 0. guaiFENesin (Mucinex 600 mg oral tablet, extended release) 1 tab(s) Oral Every 12 hours scheduled time as needed congestion for 10 Days. Refills: 0. Additional medications on your home medication list not specifically addressed. Please contact the ordering physician if you have questions about these medications. busPIRone (busPIRone 15 mg oral tablet) 1 tab(s) Oral 2 times a day. hydrOXYzine (hydrOXYzine hydrochloride 10 mg oral tablet) 2 tab(s) Oral 4 times a day as needed for anxiety. medroxyPROGESTERone (medroxyPROGESTERone 150 mg/mL intramuscular suspension) 1 Milliliter Intramuscular every 3 months. Refills: 3. promethazine (promethazine 25 mg rectal suppository) 1 suppository(ies) Per rectum Every 8 hours. Refills: 1. risperiDONE (risperiDONE 1 mg oral tablet) 1 tab(s) Oral 2 times a day. sertraline (sertraline 50 mg oral tablet) take 1 tablet by mouth every morning. Visit Information Allergies: Substance Reaction Symptoms Type Comments Zofran Drug hives Vital Signs: Vitals and Measurements this Visit (last charted value for your 03/10/2022 visit) Vital Signs This Visit Temperature Oral: 37.3 DegC Peripheral Pulse Rate: 93 bpm Respiratory Rate: 18 br/min Systolic Blood Pressure: 128 mmHg Diastolic Blood Pressure: 85 mmHg SpO2: 98 % Oxygen Therapy: Room air Measurements This Visit Height/Length Measured: 168.27 cm Weight Measured: 113.4 kg Bod (more content not included)... [facility] Consent Formson 03-03-2022 Consent Forms [id number] GTIFF [facility] ED Clinical Summaryon 2021 ED Clinical Summary [facility] ? Urgent Care [address] [place] [address] Clinical Summary PERSON INFORMATION Name: TERESA ISAACS Age: 21 Years Sex: FEMALE : 2000 MRN: Acct#: Visit Reason: Medical screening exam; [facility] Arrival: 03/02/2022 13:42:43 Discharge: 03/02/2022 14:40:00 LOS: 000 00:58 Check In: 03/02/2022 13:42:43 Checkout: 03/02/2022 14:40:00 Address: [address] [place] [address] PCP: Michele Angulo MD PROVIDER INFORMATION Provider Role Assigned Unassigned Alex Cai PA-C ED PA 03/02/2022 13:45:31 Elisabeth Stevens MANAGER SQL Nurse 03/02/2022 13:58:57 03/02/2022 13:59:21 Elisabeth Stevens MANAGER SQL Nurse 03/02/2022 14:16:42 03/02/2022 14:18:29 Elisabeth Stevens MANAGER SQL Nurse 03/02/2022 14:19:03 VITALS INFORMATION Vital Sign Triage Latest Temperature Tympanic Temperature Temporal Artery Pulse Rate O2 Sat 98 % 98 % Respiratory Rate Blood Pressure /70 mmHg /70 mmHg MEDICAL INFORMATION Medications Given: Allergy Information: Danielle PHYSICIAN DOCUMENTATION DISCHARGE INFORMATION: Discharge Disposition: Home Discharge Location: Home PATIENT EDUCATION INFORMATION Instructions: Follow-Up: DIAGNOSIS: Patient Understands: Yes - Patient/family/caregive r verbalizes understanding of instructions given Comment: Normal [facility] ED Patient Summaryon 022 ED Patient Summary [facility] ? Urgent Care [address] [place] [address] PATIENT DISCHARGE INSTRUCTIONS Patient Information Name: TERESA ISAACS Age: 21 Years Date of : 2000 Reason For Visit: Medical screening exam; [facility] Arrival Time: 03/02/2022 13:42:43 Primary Care Physician: Michele Angulo MD Attending Physician: Alex Cai PA-C Comment: Patient Education Medication Information: The exam and treatment you received today in the [facility] Emergency Department were for an urgent problem and are not intended as complete care. It is important for you to follow up with a doctor, nurse practitioner, or physician?s ssn/ssbn assistant navigator for ongoing care. If your symptoms become worse or you do not improve as expected and you are unable to reach your usual health care provider, you should return to the Emergency Department, we are available 24 hours a day. For those patients who have received Radiology results, the interpretation of your X-ray as given to you by our Emergency Department physician is only a preliminary report. The Radiologist will review your films and if there is a change in the diagnosis you will be notified by phone. Please make sure you have provided a working phone number so we can reach you if necessary. In the event that you had a lab culture while you were a patient in the Emergency Department, you will be notified by phone if there is a need to change your antibiotic. Please make sure you have provided a working phone number so we can reach you if necessary. [facility] Emergency Department has provided you with a complete list of medications post discharge. Please inform your supervisor agency appointments/provider of your visit and for further instruction on these medications. Any specific questions regarding your chronic medications and dosages should be discussed with your primary care physician(s) and/or pharmacist. Medications to Continue That Have Not Changed Other Medications busPIRone (busPIRone 15 mg oral tablet) 1 tab(s) Oral 2 times a day. hydrOXYzine (hydrOXYzine hydrochloride 10 mg oral tablet) 2 tab(s) Oral 4 times a day as needed for anxiety. medroxyPROGESTERone (medroxyPROGESTERone 150 mg/mL intramuscular suspension) 1 Milliliter Intramuscular every 3 months. Refills: 3. promethazine (promethazine 25 mg rectal suppository) 1 suppository(ies) Per rectum Every 8 hours. Refills: 1. risperiDONE (risperiDONE 1 mg oral tablet) 1 tab(s) Oral 2 times a day. sertraline (sertraline 50 mg oral tablet) take 1 tablet by mouth every morning. Visit Information Visit Diagnosis: Diagnoses This Visit Medical screening exam ([id number]) If you received any narcotics, sedation, or any other medication that causes drowsiness for the next 24 hours, unless otherwise directed: ? Do not drive a car. ? Do not operate machinery such as power tools, lawn mowers, drills, sewing machines, or stoves ? Avoid alcoholic beverages and drugs for allergies, nerves, or sleep ? Do not make important personal or business decisions or sign any legal documents Reason for Visit: otterstormyin physical Allergies: Substance Reaction Symptoms Type Comments Zofran Drug hives Vital Signs: Vitals and Measurements this Visit (last charted value for your 03/02/2022 visit) Vital Signs This Visit Peripheral Pulse Rate: 71 bpm Respiratory Rate: 16 br/min Systolic Blood Pressure: 110 mmHg Diastolic Blood Pressure: 70 mmHg SpO2: 98 % Oxygen Therapy: Room air Measurements This Visit Height/Length Measured: 168.27 cm Weight Measured: 113.94 kg Body Mass Index: 40.24 kg/m2 Problems List: Problem Onset Comments Depression Major Tests and Procedures: The following procedures and tests were performed during your ED visit. Laboratory Radiology Cardiology Viruses or Bacteria What?s got you sick? Antibiotics only treat bacterial infections. Viral illnesses cannot be treated with antibiotics. When an antibiotic is not prescribed, ask your healthcare professional for tips on how to relieve symptoms and feel better. Usual Cause Illness Viruses Bacteria Antibiotic Needed Cold/Runny Nose NO Bronchitis/Chest Cold (in otherwise healthy children and adults) NO Whooping Cough Yes Flu NO Strep Throat Yes Sore Throat (except strep) NO Fluid in the middle ear (otitis media with effusion) NO Urinary Tract Infection Yes Antibiotics Aren?t Always the Answer www.cdc.gov/getsmart GET SMART Know When Antibiotics Work U.S. Department of Health and Human Services Centers for Disease Control and Prevention January 2014 [facility] Urgent Care Note- Provideron 03-02-2022 Urgent Care Note- Provider Patient: TERESA ISAACS Age: 21 years Sex: FEMALE : 2000 Associated Diagnoses: None Author: Alex Cai PA-C History of Present Illness Patient presents for a pre-employment physical. She is cleared for work. Exam is normal. See scanned document. GENERAL: Awake, alert and oriented to person, place and situation. Well nourished, well developed, non toxic, NAD. Moves around the department freely. EYES: Pupils equal, round and react to light. EOMI. ENMT: Ears: TM's and external canals with normal inspection bilaterally. Nose: normal inspection. Mouth: oral mucosa is pink and still moist. Throat: normal inspection. NECK: No bony TTP, normal range of motion, no meningismus, trachea is midline. No anterior or posterior lymphadenopathy. CARDIOVASCULAR: Regular rate and rhythm. +S1 +S2. No murmurs or rubs. RESPIRATORY: Clear to auscultation bilaterally without rales, rhonchi or wheeze. ABDOMEN: Soft, completely non tender, abdomen is non distended, without rebound tenderness, guarding or peritoneal signs. Bowel sounds present times 4 quadrants and normoactive. No bruits. No masses. No CVA TTP. BACK: There is no bony TTP, no scoliosis, full ROM without difficulty. EXTREMITIES: No cyanosis, clubbing or edema. Good muscle tone, moves all extremities fully. Squat normal. SKIN: Normal inspection, no visualized rash. NEUROLOGIC: Light touch sensation in tact, strength 5/5 in bilateral upper and lower extremities. Normal reflexes. Steady gait. Normal mentation. No focal neurological deficits appreciated. PSYCHIATRIC: Mood and affect appropriate. Health Status Allergies: Allergic Reactions (Selected) Mild Zofran- No reactions were documented.. Medications: (Selected) Prescriptions Prescribed medroxyPROGESTERone 150 mg/mL intramuscular suspension: 1 mL, IM, q3mo, 1 mL, 3 Refill(s) promethazine 25 mg rectal suppository: 25 mg = 1 supp, ME, q8hr, 12 supp, 1 Refill(s) Documented Medications Documented hydrOXYzine pamoate 25 mg oral capsule: take 1 to 2 capsules by mouth every 6 hours if needed for anxiety... (REFER TO PRESCRIPTION NOTES). sertraline 50 mg oral tablet: take 1 tablet by mouth every morning. Past Medical/ Family/ Social History Medical history: Resolved Closed nondisplaced fracture of proximal phalanx of left little finger ([id number]): Resolved. Pneumonia ([id number]): Resolved.. Surgical history: No active procedure history items have been selected or recorded.. Family history: Entire family history is negative.. Social history: Social & Psychosocial Habits Alcohol 11/15/2017 Alcohol Use: Never 12/20/2020 Alcohol Use: Never Substance Abuse 04/20/2021 Substance use: Current Type: Marijuana Frequency: Daily Tobacco 06/06/2019 Smoking tobacco use: Never (less than 100 in l 12/20/2020 Smoking tobacco use: Never (less than 100 in l Electronic Cigarette/Vaping 04/19/2020 Electronic Cigarette Use: Never 04/20/2021 Electronic Cigarette Use: Use, within last 90 days Type: Nicotine infused Use per Day: 1-25 Inhales/day . Problem list: Active Problems (1) Depression . [Electronically Signed on: 03/02/2022 14:25 EDT] Alex Cai PA-C [Verified on: 03/02/2022 14:25 EDT] Alex Cai PA-C Normal [facility] Urgent Care [place] 022 Urgent Care Record [facility] ? Urgent Care [address] [place] [address] PATIENT DISCHARGE INSTRUCTIONS Patient Information Name: TERESA ISAACS Age: 21 Years Date of : 2000 Reason For Visit: Medical screening exam; [facility] Arrival Time: 03/02/2022 13:42:43 Primary Care Physician: Michele Angulo MD Attending Physician: Alex Cai PA-C Comment: Visit Diagnosis: Diagnoses This Visit Medical screening exam ([id number]) If you received any narcotics, sedation, or any other medication that causes drowsiness for the next 24 hours, unless otherwise directed: ? Do not drive a car. ? Do not operate machinery such as power tools, lawn mowers, drills, sewing machines, or stoves ? Avoid alcoholic beverages and drugs for allergies, nerves, or sleep ? Do not make important personal or business decisions or sign any legal documents Medication Information: The exam and treatment you received today in the [facility] Urgent Care were for an urgent problem and are not intended as complete care. It is important for you to follow up with a doctor, nurse practitioner, or physician?s ssn/ssbn assistant navigator for ongoing care. If your symptoms become worse or you do not improve as expected and you are unable to reach your usual health care provider, you should return to the Emergency Department, we are available 24 hours a day. For those patients who have received Radiology results, the interpretation of your X-ray as given to you by our Urgent Care physician is only a preliminary report. The Radiologist will review your films and if there is a change in the diagnosis you will be notified by phone. Please make sure you have provided a working phone number so we can reach you if necessary. In the event that you had a lab culture while you were a patient in the Urgent Care, you will be notified by phone if there is a need to change your antibiotic. Please make sure you have provided a working phone number so we can reach you if necessary. [facility] has provided you with a complete list of medications post discharge. Please inform your supervisor agency appointments/provider of your visit and for further instruction on these medications. Any specific questions regarding your chronic medications and dosages should be discussed with your primary care physician(s) and/or pharmacist. Medications to Continue That Have Not Changed Other Medications busPIRone (busPIRone 15 mg oral tablet) 1 tab(s) Oral 2 times a day. hydrOXYzine (hydrOXYzine hydrochloride 10 mg oral tablet) 2 tab(s) Oral 4 times a day as needed for anxiety. medroxyPROGESTERone (medroxyPROGESTERone 150 mg/mL intramuscular suspension) 1 Milliliter Intramuscular every 3 months. Refills: 3. promethazine (promethazine 25 mg rectal suppository) 1 suppository(ies) Per rectum Every 8 hours. Refills: 1. risperiDONE (risperiDONE 1 mg oral tablet) 1 tab(s) Oral 2 times a day. sertraline (sertraline 50 mg oral tablet) take 1 tablet by mouth every morning. Visit Information Allergies: Substance Reaction Symptoms Type Comments Zofran Drug hives Vital Signs: Vitals and Measurements this Visit (last charted value for your 03/02/2022 visit) Vital Signs This Visit Peripheral Pulse Rate: 71 bpm Respiratory Rate: 16 br/min Systolic Blood Pressure: 110 mmHg Diastolic Blood Pressure: 70 mmHg SpO2: 98 % Oxygen Therapy: Room air Measurements This Visit Height/Length Measured: 168.27 cm Weight Measured: 113.94 kg Body Mass Index: 40.24 kg/m2 Problems List: Problem Onset Comments Depression Patient Education Viruses or Bacteria What?s got you sick? Antibiotics only treat bacterial infections. Viral illnesses cannot be treated with antibiotics. When an antibiotic is not prescribed, ask your healthcare professional for tips on how to relieve symptoms and feel better. Usual Cause Illness Viruses Bacteria Antibiotic Needed Cold/Runny Nose NO Bronchitis/Chest Cold (in otherwise healthy children and adults) NO Whooping Cough Yes Flu NO Strep Throat Yes Sore Throat (except strep) NO Fluid in the middle ear (otitis media with effusion) NO Urinary Tract Infection Yes Antibiotics Aren?t Always the Answer www.cdc.gov/getsmart GET SMART Know When Antibiotics Work U.S. Department of Health and Human Services Centers for Disease Control and Prevention January 2014 [facility] Miscellaneouson 11-30-2021 Beta HCG ( test) Ql (U) Patient presents in office for depo shot, patient is 8 days past the due date so she was administered a urine test with a negative result. patient administered 1ml of medroxyprogesterone of her own supply to right deltoid. Patient tolerated well, advised to return to clinic within 90 days for next administered dose. [Electronically Signed on: 11/30/2021 11:18 EDT] Gisela Lovelace [Verified on: 11/30/2021 11:18 EDT] Gisela Lovelace [facility] ANES POSTPROC EVALon 022 ANES POSTPROC EVAL HNO ID: [id number] Author: Kev Chacon APRN.BONE TENDER Service: Anesthesiology Author Type: Nurse Speaker Wirer Type: Anesthesia Postprocedure Evaluation Filed: 08/09/2021 11:47 AM Note Text: POST ANESTHESIA EVALUATION NOTE : 2000 Procedure Summary Date: 08/09/21 Room / Location: Ambulatory Surgery Anesthesia Start: 1119 Anesthesia Stop: 1146 Procedures: EGD DIAGNOSTIC COLONOSCOPY DIAGNOSTIC Diagnosis: Nausea and vomiting, unspecified vomiting type Gastroesophageal reflux disease, unspecified whether esophagitis present Change in bowel function (Heartburn) (Nausea with vomiting) Scheduled Providers: Celio Loja DO Responsible Provider: Kev Chacon APRN.CRNA Anesthesia Type: MAC ASA Status: 3 Anesthesia Type: MAC Last Vitals Vitals Value Taken Time BP 99/58 08/09/21 1146 Temp 08/09/21 1146 Pulse 65 08/09/21 1146 Resp 25 08/09/21 1146 SpO2 97 % 08/09/21 1146 Post Anesthesia Patient Status Patient Evaluation: bedside. Anticipated Disposition: phase 2 then home. Neurological Status: sleepy but arousable. Pulmonary Status: breathing comfortably on supplemental oxygen Airway Control: returned to baseline unsupported. Cardiovascular Status: stable. Pain Management: clinically adequate Postoperative Hydration: acceptable. Intraoperative Events: no significant anesthesia events Post Operative Nausea/Vomiting Status: no significant post operative nausea or vomiting Anesthetic Observations: Recommendation: continue current plan of care. Anesthesia Observations No Documentation SIGNATURE: Kev Chacon APRN.BONE TENDER PATIENT NAME: Teresa Isaacs DATE: August 09, 2021 TIME: 11:46 AM CSN: [id number] [facility] HISTORY PHYSICALon HISTORY PHYSICAL HNO ID: [id number] Author: Celio Loja DO Service: Gastroenterology Author Type: Physician Type: HANDP Filed: 08/09/2021 11:21 AM Note Text: HISTORY AND PHYSICAL Teresa Isaacs, 21 year old female Current history and physical on file: No Is a new History and Physical required for today's visit? Yes Indication for procedure: Change in bowel movements, GERD and Nausea AND Vomiting PROCEDURE(S) SCHEDULED FOR: Colonoscopy with or without biopsies and with or without removal of polyps or lesions, dilation (any means), treatment of bleeding (any means), based on clinical findings. and EGD (Esophagogastroduodenos copy) with or without biopsies, removal of polyps or lesions, dilation ( any means), treatment of bleeding ( any means), Barrx treatment of Darell's Esophagus, image tube placement or cryo therapy treatment based on clinical findings. BASELINE BEHAVIOR: Calm BASELINE ORIENTATION: A AND O x3 All medications and allergies reviewed: Yes Skin Assessment: Warm dry mucus membranes pink Airway/Respiratory Assessment: Airway: visualization of the uvula- Yes Mouth: opening greater than 2 fingerbreadths- Yes Neck: full range of motion- Yes Breath sounds clear/equal- Yes Cardiac Assessment: Regular rate and rhythm without murmur Abdominal Assessment: Abdomen soft, non-tender, no masses or organomegaly. Sedation Plan: MAC Additional Comments: None Celio Loja DO [facility] NURSING PROGon 08-09-2021 NURSING PROG HNO ID: [id number] Author: Francie Power RN Service: Nursing Author Type: Registered Nurse Type: Nursing Progress Note Filed: 08/09/2021 11:48 AM Note Text: POST OP LEARNING RESPONSE INSTRUCTION PROVIDED TO: Patient METHOD OF INSTRUCTION: Individual instruction Written instruction - handouts Verbal instruction PATIENT / FAMILY RESPONSE: Information received as demonstrated by interest and questions FOLLOW-UP PLAN: Patient instructed to call with any further issues SUPPLEMENTAL MATERIAL: None REFERRAL (RECOMMENDATION): None Electronically Signed By: Francie Power RN In Department: AMBULATORY SURGERY [facility] NURSING PROG HNO ID: [id number] Author: Elif Bridges RN Service: ? Author Type: Registered Nurse Type: Nursing Progress Note Filed: 08/09/2021 11:05 AM Note Text: PRE OP LEARNING ASSESSMENT PROCEDURE/SURGERY: GI PROCEDURES: Colonoscopy and EGD READINESS TO LEARN COGNITIVE ABILITY: Alert and oriented MOTIVATION TO LEARN: Interested FAMILY SUPPORT: High - Very involved in pt care PATIENT LEARNS BEST BY: Verbal Instruction FACTORS AFFECTING LEARNING: None PHYSICAL LIMITATIONS AFFECTING LEARNING: None Electronically Signed By: Elif Bridges RN In Department: AMBULATORY SURGERY Normal [facility] SURGICAL PATHOLOGYon 022 CASE REPORT Normal [facility] Comment on above: Order Comment: Speci men Type: TISSUE SPECIMEN Ordering Facility: [facility] Address: [address] [place] [id number] Result Comment: Surg ica Pathology Report Case: [id number] Authorizing Provider: Celio Loja DO Collected: 08/09/2021 11:27 AM Ordering Location: Ambulatory Surgery Received: 08/09/2021 08:22 PM Pathologist: Van Ng MD Specimens: A) - SMALL INTESTINE BIOPSY, r/o celiac B) - STOMACH BIOPSY, r/o h pylori Performed By: #### S #### [facility] CLIA [id number] [address] [place] [address] FINAL DIAGNOSIS [facility] Comment on above: Order Comment: Speci men Type: TISSUE SPECIMEN Ordering Facility: [facility] Address: [address] [place] [address] Result Comment: A. S mall intestine, biopsy: - Duodenal mucosa with no diagnostic abnormality. - Villous architecture is preserved and there is no increase in intraepithelial lymphocytes. B. Stomach, biopsy: - Gastric antral and oxyntic mucosa with no diagnostic abnormality. - There is no evidence of active Helicobacter pylori infection. Performed By: #### S #### [facility] CLIA [id number] [address] [place] [address] FINAL PERFORMING LAB Normal [facility] Comment on above: Order Comment: Speci men Type: TISSUE SPECIMEN Ordering Facility: [facility] Address: [address] [place] [address] Result Comment: Diag nostic interpretation performed at [facility], [address] [place] [address] CLIA# [id number] Occupational Therapy Professor: Cristóbal Connelly M.D. Performed By: #### S #### [facility] CLIA [id number] [address] [place] [address] GROSS DESCRIPTION Normal [facility] Comment on above: Order Comment: Speci men Type: TISSUE SPECIMEN Ordering Facility: [facility] Address: [address] [place] [address] Result Comment: A. S MALL INTESTINE BIOPSY. Received in formalin are two pieces of patricio, soft tissue aggregating to 0.9 x 0.3 x 0.2 cm. Totally submitted in one cassette. B. STOMACH BIOPSY. Received in formalin are two pieces of patricio, soft tissue aggregating to 1.0 x 0.3 x 0.2 cm. Totally submitted in one cassette. Gross examination performed at [facility], [address] [place] [address], [place] [address] TTN 08/10/2021 12:06 AM Performed By: #### S #### [facility] CLIA [id number] [address] [place] [address] [id number] [id number] [facility] CNPSonya 08-01-2021 CNPN Telephone (JACOB) TERESA ISAACS ([id number]) 4 F Date Time Provider Department 08/01/21 CELIO LOJA During your visit today, we recorded the following information about you: Florinda Russ Ma 08/01/2021 4:27 PM Signed Confirmed upcoming procedure for 08-09-21 Allergies As of Date: 08/01/2021 (No Known Allergies) Date Reviewed: 06/17/2021 Reviewed by: Ana Isaacs Ma - Fully Assessed Reason for Visit: Appointment [[id number]] Prescriptions as of 08/01/2021 - promethazine (PHENERGAN) 25 mg tablet Take 25 mg by mouth every 6 hours as needed. - pantoprazole DR (PROTONIX) 40 mg tablet Take 1 tablet by mouth once daily. - peg 3350-Electrolytes (GOLYTELY) 236-22.74-6.74 -5.86 gram suspension Refer to printed prep instructions from your provider. Problem List As Of Date: 08/01/2021 (None) Encounter Status:Closed by FLORINDA RUSS MA on 08/01/21 [facility] ANES PRE-OPon 07-31-2021 ANES PRE-OP HNO ID: [id number] Author: Kev Chacon APRN.BONE TENDER Service: Anesthesiology Author Type: Nurse Speaker Wirer Type: Anesthesia Preprocedure Evaluation Filed: 08/09/2021 11:16 AM Note Text: ANESTHESIOLOGY DAY OF SURGERY NOTE : 2000 Procedure Information Date/Time: 08/09/21 1115 Scheduled providers: Celio Loja DO Procedures: EGD DIAGNOSTIC COLONOSCOPY DIAGNOSTIC Location: Ambulatory Surgery Estimated body mass index is 41.44 kg/m? as calculated from the following: Height as of 06/17/21: 165.1 cm (5' 5 ). Weight as of 06/17/21: 112.9 kg (249 lb). Most recent hematocrit and potassium results: No results found for this basename: HCT,HEMATOCRIT,K,POTASS IUM Relevant Problems No relevant active problems THC - daily PTSD I - PHYSICAL EVALUATION AIRWAY Patient intubated: No. Tracheostomy tube not present Mallampati: I. TM distance: >3 FB. Neck ROM: full ROM without neurological symptoms. Mouth opening: adequate. Short neck: no. Thick neck: no DENTAL Dental findings: teeth intact. Additional exam findings: no II - ANESTHESIA PLAN ASA Score: 3 Anesthetic Plan: MAC The patient is a current smoker. (THC) NPO Status: adequate Monitoring plan: standard ASA. Postoperative analgesic plan: per surgical service. Informed Consent Anesthetic risks, benefits, alternatives, personnel and consent discussed: yes. Patient / Responsible Republican agrees to proceed: yes Patient / Surrogate agrees to blood products: blood products not planned DNR status not reviewed with patient and/or family prior to surgery. Significant changes in the patient condition since the History and Physical, not otherwise documented in primary service progress note: no. Potential Anesthesia issues that may suggest increased risk of complications or contraindication to planned procedure: none. No vitals data found for the desired time range. Outpatient Medications as of 08/09/2021 Medication Sig - promethazine (PHENERGAN) 25 mg tablet Take 25 mg by mouth every 6 hours as needed. - pantoprazole DR (PROTONIX) 40 mg tablet Take 1 tablet by mouth once daily. - peg 3350-Electrolytes (GOLYTELY) 236-22.74-6.74 -5.86 gram suspension Refer to printed prep instructions from your provider. No current facility-administered medications on file as of 08/09/2021. I have interviewed and examined the patient. I have reviewed the medical record and/or the pre-anesthesia evaluation, pertinent labs, and test results. This contains updated information obtained within 48 hours of Surgery/Procedure. SIGNATURE: Taylor Bah APRN.CRNA PATIENT NAME: Teresa Isaacs DATE: July 31, 2021 TIME: 1:13 PM CSN: [id number] [facility] CNOVon 06-17-2021 CNOV Office Visit (GASTNO ) TERESA ISAACS ([id number]) 4 F Date Time Provider Department 06/17/21 9:20 AM CELIO LOJA During your visit today, we recorded the following information about you: Pulse Blood pressure Weight Height 99/minute 130/83 112.9 kg 1.651 m Celio Loja DO 06/17/2021 10:13 AM Signed Chief Compliant: Teresa Isaacs, 20 year old female, presents in the office today for nausea, vomiting, diarrhea HPI: Teresa Isaacs is a 20 year old female with PMH significant for PTSD, chronic marijuana use who presents for nausea, vomiting, diarrhea. Pt reports intermittent episodes which started acutely in 01/08. Occurs about 2 times per month on average and lasts for 3-10 days when they occur. No clear triggers for these episodes. Describes as waking up at 5 am with nausea, vomiting and diarrhea. This will last for hours. Feels very fatigued after and can only sleep. When she wakes up she is better but not back to baseline usually. Has associated GERD/regurgitation. Did see some specks of blood with her most recent episode in her emesis but this was after vomiting forcefully multiple times and small amount with mucus. In between these episodes, she feels fine. At baseline, has had constipation for the last 3 yrs which she describes as going less frequently. No clear triggers prior to onset of the constipation although she notes overall poor diet at home. Had associated abd pain/discomfort. Started taking miralax as needed which helped. Otherwise denies any SAHNI, dizziness, fevers, chills, dysphagia, sob, cp, palpitations, abd pain, signs of bleeding. Did lose about 12 lbs with her first episode but has gained some of that back. Fam hx of IBS. She has been seen in the ED multiple times for episodes-available records reviewed. No prior EGD/colonoscopy. Has been prescribed PPI for short time only so unclear benefit, zofran which did not help and phenergan which does help. She also reports that she did stop smoking marijuana for about 2 months with no change in symptoms. Does note significant stressors related to her home life. 04/20/21 ED notes,Chief Complaint nausea and vomiting. States that she gets bouts of nausea and vomiting every few weeks 20-year-old female with prior history of episodic vomiting, presented to ER today for several concerns. One is that she may have developed a reaction or allergic reaction to Zofran and 2, that she ran out of her antiemetic medication that she felt was effective for her symptoms. She reported having daily nausea and intermittently, more severe symptoms of retching and vomiting. She stated that she had been seen over at [facility] and here for similar reason and had been told that it may have been related to her daily marijuana use. She stated that she did stop for some time although it may not have been long enough to notice a difference. She stated that she started back up again, a few weeks ago. She stated that she has been having recurrent nausea. She stated that she had taken Zofran periodically for symptom relief, and did notice some improvement after an hour or so. She stated that yesterday morning, she had a severe episode with heavy retching and vomiting. This morning, she noted that she had rash broke out around the facial region. Because she had taken the Zofran expressed concern that it may be related to allergic reaction to Zofran. She stated that she had run out of Phenergan which he also felt to be effective. She denies any fever. Stated that she has some subjective chills. She denies any diarrhea. No ENT symptoms. Recall that she had been eating and drinking normally otherwise. Symptoms appears to be worse in the morning. 04/20/2021 Substance use: Current Type: Marijuana Frequency: Daily 02/10/21 CT abd/pelvis was done for Abdominal pain with nausea, vomiting, and diarrhea. FINDINGS: Images of the lower chest are unremarkable. The liver, spleen, pancreas, right and left kidneys, and both adrenal glands appear unremarkable. The urinary bladder appears unremarkable. No acute intestinal abnormality is identified. The appendix appears unremarkable. No free intra- abdominal air or ascites is seen. No abdominal wall abnormality is noted. 01/29/21 ER visit notes as follows: test is negative. Examination benign. Patient reported having daily nausea with episode of dry heaving. She admits to having daily marijuana use, especially at nighttime. I had advised the patient that the daily nausea and dry heaving, may be associated with the daily marijuana use. As an option, she may consider stopping marijuana use and continue to monitor symptoms. 12/30/20 ER visit notes as follows: 20-year-old female who was recently in the emergency room complaining of nausea vomiting and diarrhea. She states her symptoms have b (more content not included)... Normal [facility] Basic Metabolic Panelon 01-20 Calcium [Mass/Vol] 9.5 mg/dL Normal 8.2-10.2 [facility] Comment on above: Performed By: #### H EPATIC, CBC, BMP, LIPASE #### [facility] [address] Chloride [Moles/Vol] 109 mmol/L Normal 95-114 [facility] Comment on above: Performed By: #### H EPATIC, CBC, BMP, LIPASE #### [facility] [address] CO2 [Moles/Vol] 18.6 mmol/L Low 22.0-30.0 [facility] Comment on above: Performed By: #### H EPATIC, CBC, BMP, LIPASE #### [facility] [address] [place] [id number] [place] Creatinine [Mass/Vol] 0.75 mg/dL Normal 0.44-1.03 [facility] Comment on above: Performed By: #### H EPATIC, CBC, BMP, LIPASE #### [facility] [address] [place] [id number] [place] Creatinine Clr Calc Pharmacy 150.63 Normal [facility] Comment on above: Performed By: #### H EPATIC, CBC, BMP, LIPASE #### [facility] [address] [place] [address] [place] Estimated GFR ( Marianela > 60 Normal [facility] Comment on above: Result Comment: GFR estimated reference range: According to KDOQI guidelines, <60 ml/min/1.73m2 is sufficient to diagnose a patient with chronic kidney disease. Performed By: #### H EPATIC, CBC, BMP, LIPASE #### [facility] [address] Estimated GFR (Non- Am > 60 Normal [facility] Comment on above: Performed By: #### H EPATIC, CBC, BMP, LIPASE #### [address] Glucose [Mass/Vol] 94 mg/dL Normal 70-100 [facility] Comment on above: Result Comment: [place] Glucose Reference Range is dependent on time and content of last meal. Glucose of more than 200 mg/dL in a nonstressed, ambulatory subject supports the diagnosis of Diabetes Mellitus. ADA recommended reference range Performed By: #### H EPATIC, CBC, BMP, LIPASE #### [address] Potassium [Moles/Vol] 4.3 mmol/L Normal 3.5-5.1 [facility] Comment on above: Performed By: #### H EPATIC, CBC, BMP, LIPASE #### [address] Sodium [Moles/Vol] 137 mmol/L Normal 136-146 [facility] Comment on above: Performed By: #### H EPATIC, CBC, BMP, LIPASE #### [address] Urea nitrogen [Mass/Vol] 5 mg/dL Low 02-10 [facility] Comment on above: Performed By: #### H EPATIC, CBC, BMP, LIPASE #### [address] abdomen pelvis wo conon 0 02-10-2021 CT abdomen pelvis wo con [facility] [address] [place] [address] [place] [address] CT Scan Report Signed Patient: Teresa Isaacs MR#: [id number] : 2000 Acct:[id number] Age/Sex: 20 / F ADM Date: 02/10/21 Loc: ER Room: Type: [facility] ER Attending Dr: Ordering Provider: Dami Rizzo APRN Date of Service: 02/10/21 CT/CT abdomen pelvis wo con: left side abd pain Copies to: Dami Rizzo APRN CT abdomen and pelvis 02/10/2021. CLINICAL DATA: Abdominal pain with nausea, vomiting, and diarrhea. TECHNIQUE: CT of the abdomen and pelvis was performed without contrast. Axial, sagittal, and coronal reconstructions were created and reviewed. This CT exam was performed using one or more of the following dose reduction techniques: Automated exposure control, adjustment of the mA and/or kV according to patient size, or use of iterative reconstruction technique. COMPARISON: None. FINDINGS: Images of the lower chest are unremarkable. The liver, spleen, pancreas, right and left kidneys, and both adrenal glands appear unremarkable. The urinary bladder appears unremarkable. No acute intestinal abnormality is identified. The appendix appears unremarkable. No free intra- abdominal air or ascites is seen. No abdominal wall abnormality is noted. CT/CT abdomen pelvis wo con IMPRESSION: No acute abdominal or pelvic abnormality. Impression dictated by: Zachariah Curiel Jr., M.D.02/10/2021 3:27 PM Dictation Location: [place] [address] Transcribed By: [facility] 02/10/21 1527 Dictated By: Zachariah Curiel Jr, MD 02/10/21 1521 Signed By: 02/10/21 1527 Normal [facility] Complete Blood Count Auto Di ffon 02-10-2021 Basophils (Bld) [#/Vol] 0.1 10*3/uL Normal 0.0-0.1 [facility] Comment on above: Result Comment: PERF ORMED BY: [place] [address] PATHOLOGIST JACQUARD LOOM FIXER DAYAMI MCFADDEN M.D. Performed By: #### H EPATIC, CBC, BMP, LIPASE #### [address] Basophils/100 WBC (Bld) 0.6 % Normal . [facility] Comment on above: Performed By: #### H EPATIC, CBC, BMP, LIPASE #### [address] Eosinophils (Bld) [#/Vol] 0.1 10*3/uL Normal 0.0-0.7 [facility] Comment on above: Performed By: #### H EPATIC, CBC, BMP, LIPASE #### [address] Eosinophils/100 WBC (Bld) 0.6 % Normal . [facility] Comment on above: Performed By: #### H EPATIC, CBC, BMP, LIPASE #### [address] Erythrocyte distribution width (RBC) [Ratio] 13.9 % Normal 11.9-15.3 [facility] Comment on above: Performed By: #### H EPATIC, CBC, BMP, LIPASE #### [address] Hematocrit (Bld) [Volume fraction] 42.0 % Normal 36.0-46.0 [facility] Comment on above: Performed By: #### H EPATIC, CBC, BMP, LIPASE #### [address] Hemoglobin (Bld) [Mass/Vol] 14.1 g/dL Normal 12.0-16.0 [facility] Comment on above: Performed By: #### H EPATIC, CBC, BMP, LIPASE #### [address] Lymphocytes (Bld) [#/Vol] 1.5 10*3/uL Normal 1.20-4.8 [facility] Comment on above: Performed By: #### H EPATIC, CBC, BMP, LIPASE #### [address] Lymphocytes/100 WBC (Bld) 15.0 % Normal . [facility] Comment on above: Performed By: #### H EPATIC, CBC, BMP, LIPASE #### [address] MCH (RBC) [Entitic mass] 30.3 pg Normal 25.0-35.0 [facility] Comment on above: Performed By: #### H EPATIC, CBC, BMP, LIPASE #### [address] MCV (RBC) [Entitic vol] 90.4 fL Normal 78-102 [facility] Comment on above: Performed By: #### H EPATIC, CBC, BMP, LIPASE #### [address] Mean Corpuscular HGB Conc 33.6 g/dL Normal 31.0-37.0 [facility] Comment on above: Performed By: #### H EPATIC, CBC, BMP, LIPASE #### [address] Monocytes (Bld) [#/Vol] 0.3 10*3/uL Normal 0.1-1.00 [facility] Comment on above: Performed By: #### H EPATIC, CBC, BMP, LIPASE #### [address] Monocytes/100 WBC (Bld) 2.5 % Normal . [facility] Comment on above: Performed By: #### H EPATIC, CBC, BMP, LIPASE #### [address] Neutrophils (Bld) [#/Vol] 8.4 10*3/uL High 1.2-7.7 [facility] Comment on above: Performed By: #### H EPATIC, CBC, BMP, LIPASE #### [address] Neutrophils/100 WBC (Bld) 81.3 % Normal . [facility] Comment on above: Performed By: #### H EPATIC, CBC, BMP, LIPASE #### [address] Nucleated RBC/100 WBC (Bld) [Ratio] 0.0 % Normal 0-0.5 [facility] Comment on above: Performed By: #### H EPATIC, CBC, BMP, LIPASE #### [address] Platelet mean volume (Bld) [Entitic vol] 8.1 fL Normal 6.3-10.7 [facility] Comment on above: Performed By: #### H EPATIC, CBC, BMP, LIPASE #### [address] Platelets (Bld) [#/Vol] 293 10*3/uL Normal 150-450 [facility] Comment on above: Performed By: #### H EPATIC, CBC, BMP, LIPASE #### [address] RBC (Bld) [#/Vol] 4.65 10*6/uL Normal 4.10-5.10 [facility] Comment on above: Performed By: #### H EPATIC, CBC, BMP, LIPASE #### [address] WBC (Bld) [#/Vol] 10.3 10*3/uL Normal 4.5-13.5 [facility] Comment on above: Performed By: #### H EPATIC, CBC, BMP, LIPASE #### [address] HCG,Urineon 02-10-2021 Beta HCG ( test) Ql (U) Negative Normal [facility] Comment on above: Order Comment: Name Collection Type:: Clean-Voided Midstream Result Comment: PERF ORMED BY: [place] [address] PATHOLOGIST JACQUARD LOOM FIXER DAYAMI MCFADDEN M.D. Performed By: #### U HCG, UA #### [address] Hepatic Panelon 02-10-2021 Albumin [Mass/Vol] 3.8 g/dL Normal 3.2-5.5 [facility] Comment on above: Performed By: #### H EPATIC, CBC, BMP, LIPASE #### [facility] [address] Albumin/Globulin [Mass ratio] 1.0 {ratio} Normal [facility] Comment on above: Performed By: #### H EPATIC, CBC, BMP, LIPASE #### [facility] [address] ALP [Catalytic activity/Vol] 72 U/L Normal 32-92 [facility] Comment on above: Performed By: #### H EPATIC, CBC, BMP, LIPASE #### [facility] [address] ALT [Catalytic activity/Vol] 19 U/L Normal 10-60 [facility] Comment on above: Performed By: #### H EPATIC, CBC, BMP, LIPASE #### [facility] [address] AST [Catalytic activity/Vol] 16 U/L Normal 10-42 [facility] Comment on above: Performed By: #### H EPATIC, CBC, BMP, LIPASE #### [facility] [address] Bilirubin [Mass/Vol] 0.6 mg/dL Normal 0.3-1.2 [facility] Comment on above: Performed By: #### H EPATIC, CBC, BMP, LIPASE #### [facility] [address] Bilirubin,Indirect 0.5 mg/dL Normal [facility] Comment on above: Performed By: #### H EPATIC, CBC, BMP, LIPASE #### [facility] [address] Bilirubin.indirect [Mass/Vol] 0.1 mg/dL Normal 0.0-0.4 [facility] Comment on above: Performed By: #### H EPATIC, CBC, BMP, LIPASE #### [facility] [address] Globulin (S) [Mass/Vol] 3.7 g/dL Normal [facility] Comment on above: Performed By: #### H EPATIC, CBC, BMP, LIPASE #### [facility] [address] Protein [Mass/Vol] 7.5 g/dL Normal 6.1-7.9 [facility] Comment on above: Performed By: #### H EPATIC, CBC, BMP, LIPASE #### [facility] [address] Lipaseon 02-10-2021 Lipase [Catalytic activity/Vol] 30.0 U/L Normal 22-51 [facility] Comment on above: Result Comment: PERF ORMED BY: [place] [address] PATHOLOGIST JACQUARD LOOM FIXER DAYAMI MCFADDEN M.D. Performed By: #### H EPATIC, CBC, BMP, LIPASE #### [facility] [address] [place] [address] Urinalysison 02-10-2021 Appearance (U) Clear Normal Clear [facility] Comment on above: Order Comment: Name Collection Type:: Clean-Voided Midstream Performed By: #### U HCG, UA #### [facility] [address] [place] [address] Bilirubin,Urine Negative Normal Negative [facility] Comment on above: Order Comment: Name Collection Type:: Clean-Voided Midstream Performed By: #### U HCG, UA #### [facility] [address] [place] [address] [place] Color (U) Yellow Normal Yellow [facility] Comment on above: Order Comment: Name Collection Type:: Clean-Voided Midstream Performed By: #### U HCG, UA #### [facility] [address] Glucose Ql (U) Normal Normal Normal [facility] Comment on above: Order Comment: Name Collection Type:: Clean-Voided Midstream Performed By: #### U HCG, UA #### [facility] [address] [place] [address] [place] Ketones Ql (U) Negative Normal Negative [facility] Comment on above: Order Comment: Name Collection Type:: Clean-Voided Midstream Performed By: #### U HCG, UA #### [facility] [address] [place] [address] Leukocyte esterase Test strip Ql (U) Negative Normal Negative [facility] Comment on above: Order Comment: Name Collection Type:: Clean-Voided Midstream Performed By: #### U HCG, UA #### [address] Nitrite,Urine Negative Normal Negative [facility] Comment on above: Order Comment: Name Collection Type:: Clean-Voided Midstream Performed By: #### U HCG, UA #### [address] Occult Blood,Urine Negative Normal Negative [facility] Comment on above: Order Comment: Name Collection Type:: Clean-Voided Midstream Performed By: #### U HCG, UA #### [address] pH (U) 6.0 [pH] Normal 5.0-9.0 [facility] Comment on above: Order Comment: Name Collection Type:: Clean-Voided Midstream Performed By: #### U HCG, UA #### [address] Protein,Urine Negative Normal Negative [facility] Comment on above: Order Comment: Name Collection Type:: Clean-Voided Midstream Performed By: #### U HCG, UA #### [address] Specificy Barnum,Urine 1.020 Normal 1.001-1.030 [facility] Comment on above: Order Comment: Name Collection Type:: Clean-Voided Midstream Performed By: #### U HCG, UA #### [address] Urobilinogen,Urine Normal Normal Normal [facility] Comment on above: Order Comment: Name Collection Type:: Clean-Voided Midstream Performed By: #### U HCG, UA #### [address] [address] [place] HCG,Urineon 01-30-2021 Beta HCG ( test) Ql (U) Negative Normal [facility] Comment on above: Order Comment: Name Collection Type:: Clean-Voided Midstream Result Comment: PERF ORMED BY: [place] [address] PATHOLOGIST JACQUARD LOOM FIXER DAYAMI MCFADDEN M.D. Performed By: #### U HCG, UA #### [facility] [address] [place] [address] Urinalysison 01-30-2021 Appearance (U) Clear Normal Clear [facility] Comment on above: Order Comment: Name Collection Type:: Clean-Voided Midstream Performed By: #### U HCG, UA #### [facility] [address] [place] [address] Bilirubin,Urine Negative Normal Negative [facility] Comment on above: Order Comment: Name Collection Type:: Clean-Voided Midstream Performed By: #### U HCG, UA #### [facility] [address] [place] [address] Color (U) Yellow Normal Yellow [facility] Comment on above: Order Comment: Name Collection Type:: Clean-Voided Midstream Performed By: #### U HCG, UA #### [facility] [address] [place] [address] Glucose Ql (U) Normal Normal Normal [facility] Comment on above: Order Comment: Name Collection Type:: Clean-Voided Midstream Performed By: #### U HCG, UA #### [facility] [address] [place] [address] [place] Ketones Ql (U) Trace High Negative [facility] Comment on above: Order Comment: Name Collection Type:: Clean-Voided Midstream Performed By: #### U HCG, UA #### [facility] [address] [place] [address] [place] Leukocyte esterase Test strip Ql (U) Negative Normal Negative [facility] Comment on above: Order Comment: Name Collection Type:: Clean-Voided Midstream Performed By: #### U HCG, UA #### [facility] [address] [place] [id number] [place] Nitrite,Urine Negative Normal Negative [facility] Comment on above: Order Comment: Name Collection Type:: Clean-Voided Midstream Performed By: #### U HCG, UA #### [facility] [address] [place] [id number] [place] Occult Blood,Urine Negative Normal Negative [facility] Comment on above: Order Comment: Name Collection Type:: Clean-Voided Midstream Performed By: #### U HCG, UA #### [facility] [address] [place], [place] [id number] [place] pH (U) 8.0 [pH] Normal 5.0-9.0 [facility] Comment on above: Order Comment: Name Collection Type:: Clean-Voided Midstream Performed By: #### U HCG, UA #### [facility] [address] [place], [place] [id number] [place] Protein,Urine Negative Normal Negative [facility] Comment on above: Order Comment: Name Collection Type:: Clean-Voided Midstream Performed By: #### U HCG, UA #### [facility] [address] [place], [place] [id number] [place] Specificy Barnum,Urine 1.015 Normal 1.001-1.030 [facility] Comment on above: Order Comment: Name Collection Type:: Clean-Voided Midstream Performed By: #### U HCG, UA #### [facility] [address] [place], [place] [id number] [place] Urobilinogen,Urine Normal Normal Normal [facility] Comment on above: Order Comment: Name Collection Type:: Clean-Voided Midstream Performed By: #### U HCG, UA #### [facility] [address] [place], [place] [id number] [place] KNEE LEFT 4VWSon 12-19-2017 [facility]WS [id number] [place] [address] =====Patient Name: TERESA ISAACS : 2000Sex: FAge: Race: OtherMRN: [id number]. Location: 84Patient Status: OVisit #: [id number] Date: 12/19/2017 10:55:00 AMCompleted Date: 12/19/2017 11:09 AMRequesting Provider: MEJIA MADRIGAL Attending Provider: DYLLAN SANDOVAL AM Report Copy To: Signs & Symptoms: M25.562 Pain in left knee [id number]: AthenaComments: , Views (X-RAY, KNEE): AP, Lateral, Tunnel, Roff , Weight Bearing?: Y , Views (X-RAY, KNEE): AP, Lateral, Tunnel, Roff , Weight Bearing?: Y , , , Ordering Provider - MEJIA MADRIGAL MD , Exam: KNEE LEFT 4VWSAccession #: [id number] KNEE LEFT 4VWS 12/19/2017 11:09 AM EDT SIGNS AND SYMPTOMS: M25.562 Pain in left knee I10 TECHNOLOGIST COMMENTS: Patient complains of medial to lateral left knee pain for eight months. Patient states injury to left knee due to sports. QUESTION FOR THE RADIOLOGIST: , Views (X-RAY, KNEE): AP, Lateral, Tunnel, Roff , Weight Bearing?: Y , Views (X-RAY, KNEE): AP, Lateral, Tunnel, Roff , Weight Bearing?: Y , , , Ordering ...More In Sending System PROTOCOL: AP,Lateral,Tunnel and Tangential views were obtained. COMPARISON: None FINDINGS: Soft tissues:Intact Bones:Intact Joints:Very small effusion IMPRESSION: No acute bony abnormality with normal alignment and small effusion Electronically signed by:Mejia Martin. Transcribed by: [email or web address], User Resident: Electronically Signed by: MEJIA MARTIN @ 12/19/2017 01:57 PM Normal [facility] Comment on above: Order Comment: , Vie ws (X-RAY, KNEE): AP, Lateral, Tunnel, Roff , Weight Bearing?: Y , Views (X-RAY, KNEE): AP, Lateral, Tunnel, Roff , Weight Bearing?: Y , , , Ordering Provider - MEJIA MADRIGAL MD , Encounters Encounter Date Encounter Type Care Provider Facility Start: 09-12-2023 End: 09-12-2023 ambulatory ROBERT OFELIA Not Available Start: 11-06-2022 End: 11-07-2022 Emergency department patient visit Dami Hyde Donny Facility:[facility] Start: 11-05-2022 End: 11-05-2022 ambulatory CHELSEA Bee Facility:[facility] Start: 06-23-2022 End: 06-23-2022 ambulatory Michele Angulo Facility:[facility] Start: 03-10-2022 End: 03-10-2022 ambulatory Michele Hayes Kev Facility:[facility] Start: 03-02-2022 End: 03-02-2022 ambulatory Michele Hayes Kev Facility:[facility] Start: 02-28-2022 End: 03-01-2022 ambulatory Michele Angulo Facility: [facility] Start: 12-01-2021 End: 12-01-2021 ambulatory Michele Angulo Facility: [facility] Start: 12-19-2017 End: 12-20-2017 Patient encounter DYLLAN SANDOVAL Facility:[facility] Start: 11-05-2017 End: 11-06-2017 Patient encounter DEFAULT PHYSICIAN Facility:[facility] Payers Date Payer Category Payer Medicaid [id number] 2022 Medicaid [id number] 2021 Medicaid [id number] 2021 Unknown [id number] 2002 Unknown [id number] 2.16.8 [id number] 2002 Unknown [id number] 2.16.8 [id number] 2002 Unknown [id number] 2.16.8 [id number] 2002 Unknown [id number] 2.16.84 [id number]. 2002 Unknown [id number] 2.16.84 [id number] 2002 Unknown [id number] 2.16.84 [id number] 2002 Unknown [id number] 2.16.84 [id number] Unknown [id number] Unknown Clinical Note 11-07-2022 Note Date & Type Note Facility 11-07-2022 Note Education Materials Infectious Disease Animal Bite, Adult Animal bites can be mild or serious. Small bites from house pets normally are mild. Bites from cats, strays, or wild animals can be serious. If a stray or wild animal bites you, you need to get medical help right away. You may also need a shot to prevent rabies infection. What increases the risk? ? Being near pets you do not know. ? Being near animals that are eating, sleeping, or caring for their babies. ? Being outside where small, wild animals move freely. What are the signs or symptoms? ? Pain. ? Bleeding. ? Swelling. ? Bruising. How is this treated? Treatment may include: ? Cleaning your wound. ? Rinsing out (flushing) your wound. This uses saline solution, which is made of salt and water. ? Putting a bandage on your wound. ? Closing your wound with stitches (sutures), dhiraj, skin glue, or skin tape (adhesive strips). ? Antibiotic medicine. You may be given pills, cream, gel, or fluid through an IV. ? A tetanus shot. ? Rabies treatment, if the animal could have rabies. ? Surgery, if there is infection or damage that needs to be fixed. Follow these instructions at home: Medicines ? Take or apply ujwx-dki-zsdhmqv and prescription medicines only as told by your doctor. ? If you were prescribed an antibiotic medicine, take or apply it as told by your doctor. Do not stop using it even if your wound gets better. Wound care ? Follow instructions from your doctor about how to take care of your wound. Make sure you: ? Wash your hands with soap and water for at least 20 seconds before and after you change your bandage. If you cannot use soap and water, use hand bakery technician. ? Change your bandage. ? Leave stitches or skin glue in place for at least 2 weeks. ? Leave tape strips alone unless you are told to take them off. You may trim the edges of the tape strips if they curl up. ? Check your wound every day for signs of infection. Check for: ? More redness, swelling, or pain. ? More fluid or blood. ? Warmth. ? Pus or a bad smell. General instructions ? Raise (elevate) the injured area above the level of your heart while you are sitting or lying down. ? If told, put ice on the injured area. To do this: ? Put ice in a plastic bag. ? Place a towel between your skin and the bag. ? Leave the ice on for 20 minutes, 2?3 times per day. ? Take off the ice if your skin turns bright red. This is very important. If you cannot feel pain, heat, or cold, you have a greater risk of damage to the area. ? Keep all follow-up visits. Contact a doctor if: ? You have more redness, swelling, or pain around your wound. ? Your wound feels warm to the touch. ? You have a fever or chills. ? You have a general feeling of sickness (malaise). ? You feel like you may vomit. ? You vomit. ? You have pain that does not get better. Get help right away if: ? You have a red streak going away from your wound. ? You have any of these coming from your wound: ? Non-clear fluid. ? More blood. ? Pus or a bad smell. ? You have trouble moving your injured area. ? You lose feeling (have numbness) or feel tingling anywhere on your body. Summary ? Animal bites can be mild or serious. ? If a stray or wild animal bites you, you need to get medical help right away. ? Your doctor will look at the wound and may ask about how the animal bite happened. ? Treatment may include wound care, antibiotic medicine, a tetanus shot, and rabies treatment. This information is not intended to replace advice given to you by your health care provider. Make sure you discuss any questions you have with your health care provider. Document Revised: 05/12/2022 Document Reviewed: 05/12/2022 [employer] Patient Education ? 2022 [employer]. [facility] Clinical Note 11-05-2022 Note Date & Type Note Facility 11-05-2022 Note Patient Education Ma terials Follows: Antibiotic Medicine, Adult Antibiotic medicines are used to treat infections caused by bacteria, such as strep throat and urinary tract infection (UTI). Antibiotic medicines will not work for colds, the flu (influenza), or other illnesses caused by viruses. These medicines work by killing the bacteria that are making you sick. Antibiotics can also have serious side effects. It is important that you take antibiotic medicines safely and only when needed. When do I need to take antibiotics? You may need antibiotics for: ? UTI. ? Strep throat. ? Bacterial sinusitis. ? Meningitis. This infection affects the spinal cord and brain. ? Serious lung infection. You may start antibiotics while your health care provider waits for your results from any tests for possible infection. Tests may include a culture of your throat, urine, blood, or mucus. Your health care provider may change or stop your antibiotic depending on your test results. When are antibiotics not needed? You do not need antibiotics for most common illnesses. These illnesses may be caused by a virus, not by bacteria. You do not need antibiotics for: ? The common cold. ? Influenza. ? Sore throat. ? Discolored mucus. ? Bronchitis. Antibiotics are not always needed for all infections caused by bacteria. Many of these infections clear up without antibiotic treatment. Do not ask for or take antibiotics when they are not necessary. How long should I take my antibiotic? You must take the entire prescription. Continue to take your antibiotic for as long as told by your health care provider. Do not stop taking it even if you start to feel better. If you stop taking it too soon: ? You may start to feel sick again. ? Your infection may become harder to treat. Each course of antibiotics needs a different amount of time to work. Some antibiotic courses last only a few days. Some last about a week to 10 days. In some cases, you may need to take antibiotics for a few weeks to completely treat your infection. What if I miss a dose? Try not to miss any doses of medicine. If you miss a dose, call your health care provider or pharmacist for advice. Sometimes it is okay to take the missed dose as soon as possible. Do not take double or extra doses. What are the risks of taking antibiotics? Antibiotics can cause: ? Allergic reactions. ? Nausea. ? Yeast infections. ? Liver problems. Antibiotics can also cause an infection called Clostridioides difficile (C. difficile or C. diff), which causes severe diarrhea. This infection happens when the antibiotics kill the healthy bacteria in your intestines. This allows C. diff to grow. C. diff needs to be treated right away. Let your health care provider know if: ? You develop diarrhea while taking an antibiotic. ? You develop diarrhea after you stop taking an antibiotic. C. diff infection can start weeks after stopping the antibiotic. Taking an antibiotic also puts you at risk for getting sick in the future with bacteria that do not respond to medicine (antibiotic-resistant infection). Antibiotics can cause bacteria to change so that if the antibiotic is taken again, the medicine cannot kill the bacteria. These infections can be more serious and, in some cases, life-threatening. Do antibiotics affect control? control pills may not work while you are on antibiotics. If you are taking control pills, continue taking them as usual and use a second form of control, such as a condom, to avoid unwanted . Continue using the second form of control until your health care provider says you can stop. What else should I know about taking antibiotics? It is important for you to take antibiotics exactly as told. Make sure to: ? Take the correct amount of medicine at the same time each day. ? Ask your health care provider: ? How long to wait between doses. ? If your antibiotic should be taken with food. ? If there are any foods, drinks, or medicines that you should avoid while taking your antibiotics. ? If there are any side effects you should be aware of. ? Use only the antibiotics prescribed for you by your health care provider. Do not use antibiotics prescribed for someone else. ? Drink a large glass of water when taking your antibiotics. Drink enough fluid to keep your urine pale yellow. ? Ask your pharmacist for a syringe, cup, or spoon that properly measures your antibiotics. ? Throw away any leftover medicine. Follow these instructions at home: ? Take hhax-mxg-pvzrhcv and prescription medicines as told by your health care provider. ? Return to your normal activities as told by your health care provider. Ask your health care provider what activities are safe for you. ? Keep all follow-up visits as told by your health care provider. This is important. Contact a health care provider if: ? (more content not included)... [facility] Clinical Note 06-23-2022 Note Date & Type Note Facility 06-23-2022 Note Patient Education Ma terials Follows: Hypertension, Adult Hypertension is another name for high blood pressure. High blood pressure forces your heart to work harder to pump blood. This can cause problems over time. There are two numbers in a blood pressure reading. There is a top number (systolic) over a bottom number (diastolic). It is best to have a blood pressure that is below 120/80. Healthy choices can help lower your blood pressure, or you may need medicine to help lower it. What are the causes? The cause of this condition is not known. Some conditions may be related to high blood pressure. What increases the risk? ? Smoking. ? Having type 2 diabetes mellitus, high cholesterol, or both. ? Not getting enough exercise or physical activity. ? Being overweight. ? Having too much fat, sugar, calories, or salt (sodium) in your diet. ? Drinking too much alcohol. ? Having long-term (chronic) kidney disease. ? Having a family history of high blood pressure. ? Age. Risk increases with age. ? Race. You may be at higher risk if you are . ? Gender. Men are at higher risk than women before age 45. After age 65, women are at higher risk than men. ? Having obstructive sleep apnea. ? Stress. What are the signs or symptoms? ? High blood pressure may not cause symptoms. Very high blood pressure (hypertensive crisis) may cause: ? Headache. ? Feelings of worry or nervousness (anxiety). ? Shortness of breath. ? Nosebleed. ? A feeling of being sick to your stomach (nausea). ? Throwing up (vomiting). ? Changes in how you see. ? Very bad chest pain. ? Seizures. How is this treated? ? This condition is treated by making healthy lifestyle changes, such as: ? Eating healthy foods. ? Exercising more. ? Drinking less alcohol. ? Your health care provider may prescribe medicine if lifestyle changes are not enough to get your blood pressure under control, and if: ? Your top number is above 130. ? Your bottom number is above 80. ? Your personal target blood pressure may vary. Follow these instructions at home: Eating and drinking ? If told, follow the DASH eating plan. To follow this plan: ? Fill one half of your plate at each meal with fruits and vegetables. ? Fill one fourth of your plate at each meal with whole grains. Whole grains include whole-wheat pasta, brown rice, and whole-grain bread. ? Eat or drink low-fat dairy products, such as skim milk or low-fat yogurt. ? Fill one fourth of your plate at each meal with low-fat (lean) proteins. Low-fat proteins include fish, chicken without skin, eggs, beans, and tofu. ? Avoid fatty meat, cured and processed meat, or chicken with skin. ? Avoid pre-made or processed food. ? Eat less than 1,500 mg of salt each day. ? Do not drink alcohol if: ? Your doctor tells you not to drink. ? You are , may be , or are planning to become . ? If you drink alcohol: ? Limit how much you use to: ? 0?1 drink a day for women. ? 0?2 drinks a day for men. ? Be aware of how much alcohol is in your drink. In the [place] one drink equals one 12 oz bottle of beer (355 mL), one 5 oz glass of wine (148 mL), or one 1? oz glass of hard liquor (44 mL). Lifestyle ? Work with your doctor to stay at a healthy weight or to lose weight. Ask your doctor what the best weight is for you. ? Get at least 30 minutes of exercise most days of the week. This may include walking, swimming, or biking. ? Get at least 30 minutes of exercise that strengthens your muscles (resistance exercise) at least 3 days a week. This may include lifting weights or doing Pilates. ? Do not use any products that contain nicotine or tobacco, such as cigarettes, e-cigarettes, and chewing tobacco. If you need help quitting, ask your doctor. ? Check your blood pressure at home as told by your doctor. ? Keep all follow-up visits as told by your doctor. This is important. Medicines ? Take cdzk-wqk-sddhzgn and prescription medicines only as told by your doctor. Follow directions carefully. ? Do not skip doses of blood pressure medicine. The medicine does not work as well if you skip doses. Skipping doses also puts you at risk for problems. ? Ask your doctor about side effects or reactions to medicines that you should watch for. Contact a doctor if you: ? Think you are having a reaction to the medicine you are taking. ? Have headaches that keep coming back (recurring). ? Feel dizzy. ? Have swelling in your ankles. ? Have trouble with your vision. Get help right away if you: ? Get a very bad headache. ? Start to feel mixed up (confused). ? Feel weak or numb. ? Feel faint. ? Have very bad pain in your: ? Chest. ? Belly (abdomen). ? Throw up more than once. ? Have trouble breathing. Summary ? Hypertension is another name for high blood pressure. ? High blood pressure forces your h (more content not included)... [facility] Clinical Note 03-10-2022 Note Date & Type Note Facility 03-10-2022 Note Patient Education Ma terials Follows:Disease Sinusitis, Adult Sinusitis is inflammation of your sinuses. Sinuses are hollow spaces in the bones around your face. Your sinuses are located: ? Around your eyes. ? In the middle of your forehead. ? Behind your nose. ? In your cheekbones. Mucus normally drains out of your sinuses. When your nasal tissues become inflamed or swollen, mucus can become trapped or blocked. This allows bacteria, viruses, and fungi to grow, which leads to infection. Most infections of the sinuses are caused by a virus. Sinusitis can develop quickly. It can last for up to 4 weeks (acute) or for more than 12 weeks (chronic). Sinusitis often develops after a cold. What are the causes? This condition is caused by anything that creates swelling in the sinuses or stops mucus from draining. This includes: ? Allergies. ? Asthma. ? Infection from bacteria or viruses. ? Deformities or blockages in your nose or sinuses. ? Abnormal growths in the nose (nasal polyps). ? Pollutants, such as chemicals or irritants in the air. ? Infection from fungi (rare). What increases the risk? You are more likely to develop this condition if you: ? Have a weak body defense system (immune system). ? Do a lot of swimming or diving. ? Overuse nasal sprays. ? Smoke. What are the signs or symptoms? The main symptoms of this condition are pain and a feeling of pressure around the affected sinuses. Other symptoms include: ? Stuffy nose or congestion. ? Thick drainage from your nose. ? Swelling and warmth over the affected sinuses. ? Headache. ? Upper toothache. ? A cough that may get worse at night. ? Extra mucus that collects in the throat or the back of the nose (postnasal drip). ? Decreased sense of smell and taste. ? Fatigue. ? A fever. ? Sore throat. ? Bad breath. How is this diagnosed? This condition is diagnosed based on: ? Your symptoms. ? Your medical history. ? A physical exam. ? Tests to find out if your condition is acute or chronic. This may include: ? Checking your nose for nasal polyps. ? Viewing your sinuses using a device that has a light (endoscope). ? Testing for allergies or bacteria. ? Imaging tests, such as an MRI or CT scan. In rare cases, a bone biopsy may be done to rule out more serious types of fungal sinus disease. How is this treated? Treatment for sinusitis depends on the cause and whether your condition is chronic or acute. ? If caused by a virus, your symptoms should go away on their own within 10 days. You may be given medicines to relieve symptoms. They include: ? Medicines that shrink swollen nasal passages (topical intranasal decongestants). ? Medicines that treat allergies (antihistamines). ? A spray that eases inflammation of the nostrils (topical intranasal corticosteroids). ? Rinses that help get rid of thick mucus in your nose (nasal saline washes). ? If caused by bacteria, your health care provider may recommend waiting to see if your symptoms improve. Most bacterial infections will get better without antibiotic medicine. You may be given antibiotics if you have: ? A severe infection. ? A weak immune system. ? If caused by narrow nasal passages or nasal polyps, you may need to have surgery. Follow these instructions at home: Medicines ? Take, use, or apply bqpa-brg-ixnlhxt and prescription medicines only as told by your health care provider. These may include nasal sprays. ? If you were prescribed an antibiotic medicine, take it as told by your health care provider. Do not stop taking the antibiotic even if you start to feel better. Hydrate and humidify ? Drink enough fluid to keep your urine pale yellow. Staying hydrated will help to thin your mucus. ? Use a cool mist humidifier to keep the humidity level in your home above 50%. ? Inhale steam for 10?15 minutes, 3?4 times a day, or as told by your health care provider. You can do this in the bathroom while a hot shower is running. ? Limit your exposure to cool or dry air. Rest ? Rest as much as possible. ? Sleep with your head raised (elevated). ? Make sure you get enough sleep each night. General instructions ? Apply a warm, moist washcloth to your face 3?4 times a day or as told by your health care provider. This will help with discomfort. ? Wash your hands often with soap and water to reduce your exposure to germs. If soap and water are not available, use hand bakery technician. ? Do not smoke. Avoid being around people who are smoking (secondhand smoke). ? Keep all follow-up visits as told by your health care provider. This is important. Contact a health care provider if: ? You have a fever. ? Your symptoms get worse. ? Your symptoms do not improve within 10 days. Get help right away if: ? You have a severe headache. ? You have persistent vomiting. ? You (more content not included)... [facility] History and physical note 03-03-2022 Note Date & Type Note Facility 03-03-2022 Note [id number] F [facility] Clinical Note 03-02-2022 Note Date & Type Note Facility 03-02-2022 Note Patient Education Materials Foll ows: [facility] Progress note 06-17-2021 Note Date & Type Note Facility 06-17-2021 Note HNO ID: [id number] Author: Celio Loja, DO Service: ? Author Type: Physician Type: Progress Notes Filed: 06/17/2021 10:13 AM Note Text: Chief Compliant: Teresa Isaacs, 20 year old female, presents in the office today for nausea, vomiting, diarrhea HPI: Teresa Isaacs is a 20 year old female with PMH significant for PTSD, chronic marijuana use who presents for nausea, vomiting, diarrhea. Pt reports intermittent episodes which started acutely in 01/08. Occurs about 2 times per month on average and lasts for 3-10 days when they occur. No clear triggers for these episodes. Describes as waking up at 5 am with nausea, vomiting and diarrhea. This will last for hours. Feels very fatigued after and can only sleep. When she wakes up she is better but not back to baseline usually. Has associated GERD/regurgitation. Did see some specks of blood with her most recent episode in her emesis but this was after vomiting forcefully multiple times and small amount with mucus. In between these episodes, she feels fine. At baseline, has had constipation for the last 3 yrs which she describes as going less frequently. No clear triggers prior to onset of the constipation although she notes overall poor diet at home. Had associated abd pain/discomfort. Started taking miralax as needed which helped. Otherwise denies any SAHNI, dizziness, fevers, chills, dysphagia, sob, cp, palpitations, abd pain, signs of bleeding. Did lose about 12 lbs with her first episode but has gained some of that back. Fam hx of IBS. She has been seen in the ED multiple times for episodes-available records reviewed. No prior EGD/colonoscopy. Has been prescribed PPI for short time only so unclear benefit, zofran which did not help and phenergan which does help. She also reports that she did stop smoking marijuana for about 2 months with no change in symptoms. Does note significant stressors related to her home life. 04/20/21 ED notes,Chief Complaint nausea and vomiting. States that she gets bouts of nausea and vomiting every few weeks 20-year-old female with prior history of episodic vomiting, presented to ER today for several concerns. One is that she may have developed a reaction or allergic reaction to Zofran and 2, that she ran out of her antiemetic medication that she felt was effective for her symptoms. She reported having daily nausea and intermittently, more severe symptoms of retching and vomiting. She stated that she had been seen over at [facility] and here for similar reason and had been told that it may have been related to her daily marijuana use. She stated that she did stop for some time although it may not have been long enough to notice a difference. She stated that she started back up again, a few weeks ago. She stated that she has been having recurrent nausea. She stated that she had taken Zofran periodically for symptom relief, and did notice some improvement after an hour or so. She stated that yesterday morning, she had a severe episode with heavy retching and vomiting. This morning, she noted that she had rash broke out around the facial region. Because she had taken the Zofran expressed concern that it may be related to allergic reaction to Zofran. She stated that she had run out of Phenergan which he also felt to be effective. She denies any fever. Stated that she has some subjective chills. She denies any diarrhea. No ENT symptoms. Recall that she had been eating and drinking normally otherwise. Symptoms appears to be worse in the morning. 04/20/2021 Substance use: Current Type: Marijuana Frequency: Daily 02/10/21 CT abd/pelvis was done for Abdominal pain with nausea, vomiting, and diarrhea. FINDINGS: Images of the lower chest are unremarkable. The liver, spleen, pancreas, right and left kidneys, and both adrenal glands appear unremarkable. The urinary bladder appears unremarkable. No acute intestinal abnormality is identified. The appendix appears unremarkable. No free intra- abdominal air or ascites is seen. No abdominal wall abnormality is noted. 01/29/21 ER visit notes as follows: test is negative. Examination benign. Patient reported having daily nausea with episode of dry heaving. She admits to having daily marijuana use, especially at nighttime. I had advised the patient that the daily nausea and dry heaving, may be associated with the daily marijuana use. As an option, she may consider stopping marijuana use and continue to monitor symptoms. 12/30/20 ER visit notes as follows: 20-year-old female who was recently in the emergency room complaining of nausea vomiting and diarrhea. She states her symptoms have been going on for about 2 weeks. She has lost weight over the last few months. She denies any blood in her stool. Denies any blood in her vomitus. Occasionally associated with certain foods. She has not vomited today but has felt nauseated. She has bonny (more content not included)... [facility] Summary Purpose Family History No Family History Records FoundNo Family History Records FoundNo Family History Records FoundNo Family History Records FoundNo Family History Records Found Advance Directives No Advanced Directives Records FoundNo Advanced Directives Records FoundNo Advanced Directives Records FoundNo Advanced Directives Records FoundNo Advanced Directives Records Found Additional Source Comments INFORMATION SOURCE (unrecogn ized section and content) DATE CREATED AUTHOR 12/20/2017 [facility] DATE CREATED AUTHOR AUTHOR'S ORGANIZ ATION 07/07/2021 [facility] DATE CREATED AUTHOR AUTHOR'S ORGANIZ ATION 08/12/2021 [facility] DATE CREATED AUTHOR AUTHOR'S ORGANIZ ATION 11/13/2022 [facility] DATE CREATED AUTHOR AUTHOR'S ORGANIZ ATION 09/14/2023 [facility] EPIC FOR RECORDS PERTAINING TO PATIENTS WHO ARE OR HAVE BEEN ENROLLED IN A CHEMICAL DEPENDENCY/SUBSTANCEABUSE PROGRAM, SOME INFORMATION MAY BE OMITTED. This clinical summary was aggregated from multiple sources. Caution should be exercised in using it in the provision of clinical care. This summary normalizes information from multiple sources, and as a consequence, information in this document may materially change the coding, format and clinical context of patient data. In addition, data may be omitted in some cases. CLINICAL DECISIONS SHOULD BE BASED ON THE PRIMARY CLINICAL RECORDS. [employer] provides no warranty or guarantee of the accuracy or completeness of information in this document.
[2023-09-21 14:24] LABS: Estimated Average Glucose 97 mg/dL
[2023-09-21 14:27] LABS: Basophils Percent Auto 0.2 % (0.2-2.0); Eosinophils Absolute Auto 0.1 10^3/uL (0.0-0.7); Eosinophils Percent Auto 1.4 % (0.9-7.0); Hematocrit 39.5 % (36.0-48.0); Hemoglobin 12.7 g/dL (12.0-16.0); Immature Granulocytes Abs Auto 0.02 10^3/uL (0.00-0.03); Immature Granulocytes Pct Auto 0.2 % (0.0-0.5); Lymphocytes Absolute Auto 2.5 10^3/uL (1.2-3.8); Lymphocytes Percent Auto 28.3 % (20.5-60.0); Mean Corpuscular HGB Conc 32.2 g/dL (29.9-35.2); Mean Corpuscular Volume 93.4 fL (81.0-99.0); Mean Platelet Volume 10.1 fL (9.5-13.5); Monocytes Absolute Auto 0.4 10^3/uL (0.3-0.8); Neutrophils Absolute Auto 5.8 10^3/uL (1.4-6.5); Neutrophils Percent Auto 65.9 % (43.0-75.0); Platelet Count 297 10^3/uL (150-450); Red Blood Count 4.23 10^6/uL (4.20-5.40); Red Cell Distribution Width 12.9 % (11.0-15.0); White Blood Count 8.8 10^3/uL (4.0-11.0)
[2023-09-21 14:33] LABS: HCG Quantitative <1 mIU/mL; Thyroid Stimulating Hormone 1.437 uIU/mL (0.358-3.740)
[2023-09-21 14:39] LABS: Free T4 0.94 ng/dL (0.76-1.46)
[2023-09-22 04:08] LABS: Luteinizing Hormone(LH) 4.4 mIU/mL (.)
== END 2023-09-21 13:01 | disposition home or self-care (01) ==
PROVIDERS: PCP Family Medicine; Visit Provider Obstetrics & Gynecology
DX: E28.2 Polycystic ovarian syndrome (principal); N92.6 Irregular menstruation, unspecified
CPT/HCPCS: 36415; 76830; 76856; 82626; 82627; 83001; 83002; 83036; 84439; 84443; 84702; 85025

== ENCOUNTER 2023-11-06 19:47 | Outpatient (REF) | payer BC, SELFPAY ==
--- OUTSIDE RECORDS SUMMARY | 2023-11-06 19:56 | XMS_ITS | CCD ---
Author Organization [facility] CliniSymi Care Team Providers Care Calender Let Off Helper Name Role Phone PHYSICIAN, DEFAULT Unavailable Unavailable PHYSICIAN, DEFAULT Unavailable Unavailable DYLLAN SANDOVAL AM Unavailable Unavailable DYLLAN SANDOVAL AM Unavailable Unavailable SELF, REFERRED Unavailable Unavailable SELF, REFERRED Unavailable Unavailable ROBERT GILBERT Attending Unavailable ROBERT GILBERT Attending Unavailable Dami Hines Admitting Unavailable Dami Hines Attending Unavailable Michele Angulo Primary Care Unavailable Michele Angulo Primary Care Unavailable ARY MANNING Admitting Unavailable ARY MANNING Attending Unavailable Michele Angulo Primary Care Unavailable Michele Angulo Attending Unavailable Michele Angulo Primary Care Unavailable CHELSEA Bee Admitting Unavailable CHELSEA Bee Attending Unavailable Problems Problem Classification Problem Date Documented Da te Episodic/Chronic Unclassified (2 sources) Unknown / UNK(Unknown) Onset: 12-19-2017 Results Test Name Value Interpretation Reference Range Facil ity Consent Formson 10-26-2023 Consent Forms [id number]#1.0 [facility] Outside Recordson 10-26-2023 Outside Records [id number]#[facility] 10-25-2023 Consent Forms [id number]#1.[address] [place] [address] ED Clinical Summaryon 2023 ED Clinical Summary [facility] ? Ur[facility] Care [address] [place] [id number] Clinical Summary PERSON INFORMATION Name: TERESA ISAACS Age: 23 Years Sex: FEMALE : 2000 MRN: Acct#: Visit Reason: Medical screening exam; [facility] Arrival: 10/23/2023 14:01:36 Discharge: 10/23/2023 14:30:00 LOS: 000 00:29 Check In: 10/23/2023 14:01:36 Checkout: 10/23/2023 14:30:00 Address: [address] [place] [address] PCP: Michele Angulo MD PROVIDER INFORMATION Provider Role Assigned Unassigned ARY MANNING ED PA 10/23/2023 14:04:16 Daniela Bailey MA ED Nurse 10/23/2023 14:14:34 VITALS INFORMATION Vital Sign Triage Latest Temperature Tympanic Temperature Temporal Artery Pulse Rate O2 Sat 98 % 98 % Respiratory Rate Blood Pressure /68 mmHg /68 mmHg MEDICAL INFORMATION Medications Given: Allergy Information: No known allergies PHYSICIAN DOCUMENTATION DISCHARGE INFORMATION: Discharge Disposition: Home Discharge Location: Home PATIENT EDUCATION INFORMATION Instructions: Follow-Up: With: Address: When: Michele Angulo [address] [place] [address] [employer] (1) , only if needed DIAGNOSIS: Physical exam Patient Understands: Yes - Patient/family/caregiv er verbalizes understanding of instructions given Comment: Normal [facility] ED Patient Summaryon 024 ED Patient Summary [facility] ? Urgent Care [address] [place], [place] [id number] PATIENT DISCHARGE INSTRUCTIONS Patient Information Name: TERESA ISAACS Age: 23 Years Date of : 2000 Reason For Visit: Medical screening exam; [facility] Arrival Time: 10/23/2023 14:01:36 Primary Care Physician: Michele Angulo MD Attending Physician: ARY MANNING Comment: Patient Education With: Address: When: Michele Angulo [address] [place], [place] [id number] [employer] (4) , only if needed Medication Information: The exam and treatment you received today in the [facility] Emergency Department were for an urgent problem and are not intended as complete care. It is important for you to follow up with a doctor, nurse practitioner, or physician?s speech and language assistant for ongoing care. If your symptoms become [...] so we can reach you if necessary. [facility] Emergency Department has provided you with a complete list of medications post discharge. Please inform your assistant teacher primary/provider of your visit and for further instruction on these medications. Any specific questions regarding your chronic medications and dosages should be discussed with your primary care physician(s) and/or pharmacist. Additional medications on your home medication list not specifically addressed. Please contact the ordering physician if you have questions about these medications. busPIRone (busPIRone 15 mg oral tablet) 1 tab(s) Oral (given by mouth) 2 times per day. ethinyl estradiol-norethindron e (Ethinyl Estradiol-Norethindron e and Ferrous Fumarate (08/12) 20 mcg-1 mg oral tablet) 1 tab(s) Oral. hydrOXYzine (hydrOXYzine hydrochloride 10 mg oral tablet) 2 tab(s) Oral (given by mouth) 4 times a day as needed for anxiety. metFORMIN (MetFORMIN (Eqv-Glucophage XR) 500 mg oral tablet, extended release) take 1 tablet by mouth every evening with meals (DO NOT CRUSH CHEW OR SPLIT). phentermine (phentermine 37.5 mg oral tablet) 0.5 tab(s) Oral (given by mouth) 2 times per day. risperiDONE (risperiDONE 2 mg oral tablet) take 1 tablet by mouth once daily. sertraline (sertraline 50 mg oral tablet) take 1 tablet by mouth every morning. Visit Information Visit Diagnosis: Diagnoses This Visit Medical screening exam ([id number]) Physical exam (Z00.00) If you received any narcotics, sedation, or [...] sign any legal documents Reason for Visit: Medical screening [place] Allergies: Substance Reaction Symptoms Type Comments No known allergies Drug Vital Signs: Vitals and Measurements this Visit (last charted value for your 10/23/2023 visit) Vital Signs This Visit Temperature Oral: 36.1 DegC Apical Heart Rate: 83 bpm Respiratory Rate: 18 br/min Systolic Blood Pressure: 102 mmHg Diastolic Blood Pressure: 68 mmHg SpO2: 98 % Blood Pressure Method: Automatic Measurements This Visit Height/Length Measured: 165.10 cm Weight Measured: 104.33 kg Weight Dosin.330 kg Body Mass Index: 38.27 kg/m2 BSA Measured: 2.19 m2 Problems List: Problem Onset Comments Depression PCOS (polycystic ovarian syndrome) Major Tests and Procedures: The following procedures [...] Throat Yes Sore Throat (except strep) NO (more content not included)... Normal [facility]gent [facility] Note- Provideron 10-23-2023 Urgent Care Note- Provider Patient: TERESA ISAACS Age: 23 years Sex: FEMALE : 2000 Associated Diagnoses: Physical exam Author: ARY MANNING Subjective Patient presents for physical exam. Patient does admit to a history of bipolar, PTSD and anxiety. Denies any thoughts of self-harm or homicidal ideation. Denies ever being hospitalized for this. Patient also states history of PCOS recently started on metformin. Health Status Allergies: Allergic Reactions (Selected) No known allergies Problem list (past medical history): All Problems (Selected) Depression / SNOMED CT [id number] / Confirmed Objective CONST: -Well-developed well-nourished. -Acute distress: No -Vitals: reviewed. SKIN: -Gross abnormalities: No EYES: -EOM intact, MONI: -Sclera conjunctiva: Unremarkable. ENT: -pharynx pink and moist. NECK: -Supple (hdhv-rf-egbtz): non-tender. CARD: -Rate and rhythm: Regular -Edema: No -Calf pain: No RESP: -Respiratory effort and chest excursion with respirations: Normal -Breath sounds equal bilaterally: Clear -Wheezes: No -Rales: No BACK: -Signs of pain with movement: No ABD: -Distended: No -Deep palpation: Non-tender EXT: Gross appearance and use of all four extremities: Unremarkable NEURO: -Patient: alert -Oriented to: person, place and time. -Appearance and judgment: appropriate. Impression and Plan Assessment and Plan: Diagnosis: Physical exam (GUS56-XR Z00.00). [Electronically Signed on: 10/23/2023 14:34 EDT] ARY MANNING [Verified on: 10/23/2023 14:34 EDT] ARY MANNING Normal [facility] [place] 024 Urgent Care Record [facility] ? Urgent Care [address] [place] [address] PATIENT DISCHARGE INSTRUCTIONS Patient Information Name: TERESA ISAACS Age: 23 Years Date of : 2000 Reason For Visit: Medical screening exam; [facility] Arrival Time: 10/23/2023 14:01:36 Primary Care Physician: Michele Angulo MD Attending Physician: ARY MANNING Comment: Visit Diagnosis: Diagnoses This Visit Medical screening exam ([id number]) Physical exam (Z00.00) If you received any narcotics, sedation, or [...] legal documents With: Address: When: Michele Angulo [address] [place], [place] [phone] Business (1) , only if needed Medication Information: The exam and treatment you received today in the [facility] were for an urgent problem and are not intended as complete care. It is important for you to follow up with a doctor, nurse practitioner, or physician?s speech and language assistant for ongoing care. If your symptoms become [...] so we can reach you if necessary. [facility] has provided you with a complete list of medications post discharge. Please inform your assistant teacher primary/provider of your visit and for further instruction on these medications. Any specific questions regarding your chronic medications and dosages should be discussed with your primary care physician(s) and/or pharmacist. Additional medications on your home medication list not specifically addressed. Please contact the ordering physician if you have questions about these medications. busPIRone (busPIRone 15 mg oral tablet) 1 tab(s) Oral (given by mouth) 2 times per day. ethinyl estradiol-norethindron e (Ethinyl Estradiol-Norethindron e and Ferrous Fumarate (08/12) 20 mcg-1 mg oral tablet) 1 tab(s) Oral. hydrOXYzine (hydrOXYzine hydrochloride 10 mg oral tablet) 2 tab(s) Oral (given by mouth) 4 times a day as needed for anxiety. metFORMIN (MetFORMIN (Eqv-Glucophage XR) 500 mg oral tablet, extended release) take 1 tablet by mouth every evening with meals (DO NOT CRUSH CHEW OR SPLIT). phentermine (phentermine 37.5 mg oral tablet) 0.5 tab(s) Oral (given by mouth) 2 times per day. risperiDONE (risperiDONE 2 mg oral tablet) take 1 tablet by mouth once daily. sertraline (sertraline 50 mg oral tablet) take 1 tablet by mouth every morning. Visit Information Allergies: Substance Reaction Symptoms Type Comments No known allergies Drug Vital Signs: Vitals and Measurements this Visit (last charted value for your 10/23/2023 visit) Vital Signs This Visit Temperature Oral: 36.1 DegC Apical Heart Rate: 83 bpm Respiratory Rate: 18 br/min Systolic Blood Pressure: 102 mmHg Diastolic Blood Pressure: 68 mmHg SpO2: 98 % Blood Pressure Method: Automatic Measurements This Visit Height/Length Measured: 165.10 cm Weight Measured: 104.33 kg Weight Dosin.330 kg Body Mass Index: 38.27 kg/m2 BSA Measured: 2.19 m2 Problems List: Problem Onset Comments Depression PCOS (polycystic ovarian syndrome) Patient Education Viruses or Bacteria What?s got [...] Work [employer] 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 [facility] Outside Recordson 09-25-2023 Outside Records [id number]#1.0 0OTGTIFF [facility] Office/Clinic Noteon 024 Office/Clinic Note Patient: TERESA ISAACS Age: 23 years Sex: FEMALE : 2000 Associated Diagnoses: Viral gastroenteritis Author: Michele Angulo MD A History of Present Illness 23-year-old female presents today with 2-day history of vomiting and diarrhea. She had a recent sick contact with a younger brother on Sunday who was vomiting at that time. Her symptoms started on Sunday with vomiting that progressed to diarrhea. She has stopped vomiting continues to have some loose stools. Because of her illness she did not go to work on Sunday and needs a note. She is tolerating fluids. She initially did have a fever but that is also resolved. Review of Systems Constitutional: Fever. Respiratory: Negative. Cardiovascular: Negative. Gastrointestinal: Vomiting, Diarrhea. Abdominal pain: Lower quadrant. Genitourinary: Negative. Health Status Allergies: Allergic Reactions (Selected) No known allergies, Allergies (1) Active Severity Reaction No known allergies None Documented Current medications: (Selected) Documented Medications Documented MetFORMIN (Eqv-Glucophage XR) 500 mg oral tablet, extended release: take 1 tablet by mouth every evening with meals (DO NOT CRUSH CHEW OR SPLIT) busPIRone 15 mg oral tablet: 15 mg = 1 tab(s), PO, BID hydrOXYzine hydrochloride 10 mg oral tablet: 20 mg = 2 tab(s), PO, QID, PRN: for anxiety risperiDONE 2 mg oral tablet: take 1 tablet by mouth once daily sertraline 50 mg oral tablet: take 1 tablet by mouth every morning, Home Medications (5) Active busPIRone 15 mg oral tablet 15 mg = 1 tab(s), PO, BID hydrOXYzine hydrochloride 10 mg oral tablet 20 mg = 2 tab(s), PRN, PO, QID MetFORMIN (Eqv-Glucophage XR) 500 mg oral tablet, extended release risperiDONE 2 mg oral tablet sertraline 50 mg oral tablet Problem list: Active Problems (1) Depression Physical Examination Vital Signs 09/19/2023 11:33 EDT Temperature Temporal 36.8 DegC Peripheral Pulse Rate 92 bpm Systolic Blood Pressure 98 mmHg Diastolic Blood Pressure 70 mmHg BP Site Left arm SpO2 98 % Measurements from flowsheet : Measurements 09/19/2023 11:33 EDT Height 165.1 cm Height/Length Measured (inches) 65 in Weight 107.05 kg Weight Measured (lbs) 236.005 lb Weight Dosing 107.050 kg Body Mass Index 39.27 kg/m2 [place]fe Body Weight Calculated 57 kg BSA Measured 2.22 m2 General: Alert and oriented, No acute distress. HENT: Tympanic membranes are clear, Normal hearing, Oral mucosa is moist, No pharyngeal erythema. Neck: No lymphadenopathy, No thyromegaly. Respiratory: Lungs are clear to auscultation, Respirations are non-labored. Gastrointestinal: Soft, Non-distended, Normal bowel sounds, No organomegaly, Slight tenderness diffusely greater on the right upper and lower quadrant. No guarding or rebound.. Impression and Plan Diagnosis Viral gastroenteritis (HJA12-OU A08.4). Plan: Recommend slowly advancing diet. Note for work was written. No acute process or surgical abdomen noted.. Orders Orders Evaluation and Management: [id number] Office visit - established pt, Level 3 (Order): 09/19/2023 11:29 EDT, Qty: 1, Viral gastroenteritis. [Electronically Signed on: 09/19/2023 12:11 EDT] Michele Angulo MD [Verified on: 09/19/2023 12:11 EDT] Michele Angulo MD [facility] Coding Summaryon 11-13-2022 Coding Summary HTMLBase 64 RsumdbilIDz9pBo+PGhlYW Q+IG7OYQXqC09xzQQheV9p V0AMNDxMTstnZGWADBqLXh AuulIaOE7jxOGnQVRg IC8+SD6cZONyMsqclJKyg2 L7jDC1V73bcu0wIQwlpAU5 ENSuNdMslrohx6iavVu2BT cuNmluOyBt BXTyeY42SPH6dV20Mr93hM QfoICyj0zupDt9FfUrHQXc ZUK8nRurRWqbk3JtBYKnX3 6yfZXsz1O1 CNOplHsigAPxNsUdyKL9mW 6tWJoxmeffr1cnwxpnTvu5 or03hUFrr4J9xPS1A2Czjh T1AYKwcZXu HjgazOQSsW6gziouo6xfjj yhLyYbVBKnFSr3LEd3TQPr fWzuYzImTI44UYX1GVBzjq XqW7KyDLDh cCzwVwL7z2C9Oy7JQ4PXSi goO7YVJPPKODowiHY+PC90 kg84T5EaMwfdUzk9PLOlMG Z6pQF1eH0c OTOkXIpmw6Z6mYS2M4Eari Lpmz4eh4xtWTMqHRyzO37f hNWwx9G0QIGzrHD7RAQmwX eaDkVmoC57 Oyc+OQFvcWkau3YbCitqj4 utb7noyGd2VdizGGWyzbGg fXomLMX4d9VrPh6iKPOtgD L1aDW6iH9u VfWlVbT1XTrlO714PdOmlY KyPalkD94xH2TslFV+PHRy Cfo6HXMlgGilTA7bJ3SzXO RpbmctbGVm qScgGA8sFBSpqwerQXAutN 8iTRSbS8c8JbNgFyX5GEqy U4XaRHZcpdubJb67eQ1lYi XxMcU8TMzd N2CifrK9NYJypQBiEEyeYN F4B01ef5D2SGStDKFlGIN5 vIF2lU3fhBqsugatrZIabI sgdmVydGlj FRypDTumG040OZVroYtsMi NvZGluZyBEYXRlOiAgMDYv MjYvMjAyMzwvdGQ+PHRkIH P2yAnwGSSu pEOxCTbvOr0coXugjXgiJM 3yQWEbfezfDZSldM6hPZCx dHZnaDzfOK9pSFBhtpjkz3 98UxNyJQF7 UACpzEPtO6UrnJ7dEzJwBB KiKMJnG9JdwIHtEGaiP567 HKmpJeI0PJOicpSyA6RtFU FsaWduOiB0 p2N5Dn3Eb7EgselxK9VxbW TrXiYzYmznCPn4S4GdDaod dHI+OV29HSWhTI37FLx0TJ J0xIsbKLpr APDhI9ZhiO2lXeYxTNYbPH RkOyc+PHRhYmxlIHdpZHRo XTkzELRtOfJxlGawGB7oMj 9yZGVyLWNv lCktbFKhTqOix9wrUARjMI foTB2giLldA6LleLW1TPTx v6z3Lj05X19iJ1EydSM+PG OucXY5tVO4 pE7fTuNuTpM3CPafS086Im LtxSFkPfmdq0jdp4dacDu0 AiJ1XWCutxWohYvfBRD9d9 FlZl58U33o IHdpZHRoPSIxNSUiIHZhbG ihzj1cgO2tGl6+PGNvbCB3 zIA3tJ1vHdBgXgZ4PLhyL6 49InRvcCIv Yfgqg3oyg6zdpLd3QaHlLS VmmaEwuHuxPMG9k0FfUx66 T5YhwNyed6KrBxz0cl84rJ Fno8A2tHC9 M8GxQSSnyfizmNXgcLcbQU 6qIXJwnaiyDPUatP7wPVMy P6l1GwKzNhO9MAciG7Vkhe R5NGAdiPLp KKNyrLXQuU1gcjrvq3wzdh tnVgRxNWWlQSf9JIs2TUCq hFsrVpNkDGN6SoU6FGJ1gF MqjL0caIoc tfkfoP4uMcm+FIJ9eEUmeL CXAM0uRmovrCK+PHRkIHN0 iFjpXSglYGSblI6rOMQhA5 p1IvSlSeM3 NFivS7BvqnI7ZVAwdEUxCB ZsgMPIfO5nkdvpl1pqqdlw KaGqIRLmHRv3MJj0GZNcpT duOiBsZWZ0 JrJ9MNF2uNNsnK3cvNtwub nwaJ8yUbc+QmlydGggRGF0 LWa1K2UeAsv0CYJbxVxhQE 0ncGFkZGlu Tg5cdAqtkMfcCG2mOJAgak hqb361YnYqf5ymQSIbfYKr WMvwZQY1R39gk9T9KYNvFC QgZMQ0iDY4 nQ7czOezuxkewDNqqCzwjx TfuTycBFosSZnpF282LPXh vCoyXiWrXBm6G7RfAqn0BH KfkUtsVT2d cEBzEXxzTl0xgKywtZsyDV 1vGLHotovxg394IxLad9pn ZWGfwRXrMDvoVDR9Y71zx9 T6NDVlNUVw FPX5aQY1qZ9kgYdpsqejcS VmdDsgdmVydGljYWwtYWxp K553TNYbhWtzFdLzfUx3V8 YoFps4HCYq kNgvJG2leKAuMQvgRd9beH gkoFxvFP4yHGXihfpko929 VkFdu6vbPWNqjXPaHIhdRX J5R40ja2H7 OJQkJSKcURA3eGR4uR6hmT lnbjogbGVmdDsgdmVydGlj GSemFGhsW036YXBmlAipWi BhdGllbnQg VVaaFTo8V7MiRnvbtYP+PC 39ZUGxSZ08eAOcaZThk7bn lMl2OwDsYDOqVQB1uCxzED kcu4QdZIMg A72gxXGss3P5MFUlzAbphC EpInHzkLT8qQ4zPLnbejgi c1vmczoeZlfux3lmfe59zH 02R31oTDob ZHRoPSIzMCUiIHZhbGlnbj 2mdF9kKd6+JNZdkJP6bIX4 aI0sWIUbScF3IGamB435Zo RvcCIvPjxj l5pip8xvvEb6CcG3KLDkrq IljFwlCID3f4BcMr19H25f IHdpZHRoPSIyMCUiIHZhbG gjte5gfG5o Ii8+AXFusIH2dAG1xE9xSq AbEsC6VYdhV458YdElqQEt BllhG27iD0VlpHA+PHRyPj q9YIGrzWxx TJ7vsOGqJWggIz5bMDY2Gu WdTdEkRXobG1UvVPYlmiyl chyrkPB2IOGvPQCfnE53Zh 9udDogMTBw aEOOzY1vhmkif4wxvwohHg KoSSUvTRq5IUo5HSDsdLyx QpGbQBS1HlH9ICD6sQMfpV 1hbGlnbjog hZ2xY8OrURKdnpbiIb61mQ 1aLyXoXwW8YOhmIgx+Uk9E CzuKUOVwKBKHMFhJD1SdYc SMDXB9M6Hv Vgl6LXWmoQkyYR6gtRGjIT flPq3rfYcmzOysXA4zUCLm faloAJCcnM9hTMJhxXFdpV cpJI5gPOLa dfbvz663PuInCBI8AMKjuX IvB9ClcA0sZwRyPJAbJWJg F4SknGDtUPdzU949DVxfFn G9XAXzndIs B6SbTDSspDuxCeZ1t0T4Gu 1tDr6cER2uDLOeUR55ZA25 eNVgb9H7bOI2I7FgFCCerv ctcmlnaHQ6 MEEvCHLjbJ49xNFiOItuVf 1fw2E3n277DFHaFPCrgQ97 Bw7vnPfdECFymZFKtV2wry qix9zvfrhj UwDgXTJsNTl8SWe3KBNucA mwXdHkWOS0ApC1ZOE9cXQd uU1mbDnhhovxaY0dMrw+Mj AgWWVhcnM8 C8JiSfc7TUYkbIorPE9vfD SoCDacXh3mwGdpaHzrXQ5u NYNuhssxJWUmbG8lWVBhqF WasFleRE4w WGUpoigfo799TmBjBIH8DH LgdNFkX4TyjX5rEmVkWPWa AOYgP3AiwYPoQWjxG189JN azEsI9ICBs udTeM2QiQMQuoTvxViZ4u7 T2Pg6UJY6MHHW6O0LxWpa5 JZYguZyrTS5skBJwBHeuNk 1yaWdodDog FS3uANXyosefYVBjmA5vZM TiaYVvsMxiEY9rXIRlqojv p227AhHtBNI4JZVvqESxY0 RpkR2zWlRg ZCNhFCQpI4RufAOvYMjgY6 64VJidHyU0YLNxyxUoL6Ph JGBnlGdrPkZ1q4N5Fi3QnJ HjE1PrM1h7 U7GyPnczjLR+AD08IHUqRA 75zGYhtQOgl1xmpIm7ScTd LSRlOLC2nGdeGWqpg4OvBW KvN69peMOv q9F1AVHibFedwEEuWtKsyR L2zP7mXDvivkgev5ambfcd Lynab6xclg28fX13F81wGJ dpZHRoPSIz UOTeXMMucFsndi2ixP4rVc 8+JSXirIR9vKC5yM2tHzUk QsI6LUvbG710HmYooHSqTe dlh1jak8sq cWd1PuVyBZIqopZlnWmvXY N7f6OfYe02P36nIFghRQHl OVZiYIKrYTIdmQkudy8ayG 9wIi8+PC9j d4jpbq56hA19wZE+PHRkIH T7jZskCZisUJOewW5bYPwi VsB6BQUpBhQhoT60lHGjKQ kdHl4krXad xKivKP2oMOJfwsmme201Fn Eyq3hzGUEpvUSeERhiWUE0 E14yr5N4RSAqIEOlVXB3uY B5oK0raSda bjogbGVmdDsgdmVydGljYW ojIPcaW432QRSumJnvEdZh oTEdX9xkzqLPCV3bBlkplT Q+PHRkIHN0 qRbaRQgbNOGbdP5bPDGsG9 y4DkJfRrS6AGuzY5MlhjA2 AQWgjFXmUNMcrIFLpV7eev xdc5shotes OkLrXWLlHSd8RYy7IYQpvO uuInCyDIV4TdC6VPX4dKBt pJ6dxTedrsrieW7jGmw+Rk lOOjwvdGQ+ NGCgMCE4uRirQDibKPYumQ 4mHXHtZ4t7HjAcSoW7VHoi S4XysaF7NMExyPSkMIXknD KYzI6sikbj t2pjnrglYsRgQQBmBZh6WH o1HXRwjBukInDqNDY7ZbV8 LAU1hOBkrR1ifGipbtytfW 9wOyc+TVJO OjwvdGQ+SYJvTCV9uHtkTY zgRQZwwQ5vWGOcF4z6PuYa KjD8EEdiL6BbijM2QAWyfP QgMTBwdCBU xT3elvisb1gcgruuYjEmWG YrRUt4CVh4XCGygKcbAvZc PWG1LnE4TEG1kGCfeS4ayY awzcgqwX0v Oyc+ERK0BYF8AQ62WO32G4 RyPjwvdGFibGU+PHRhYmxl IHdpZHRoPScxMDAlJyBzdH efEN8tNw4h ZGV (more content not included)... [facility] Coding Queryon 11-10-2022 Coding Query Can you please document the HPI, ROS and physical exam for this chart? Thanks. [Electronically Signed on: 11/12/2022 05:16 EDT] Dami Hines DO [Verified on: 11/12/2022 05:16 EDT] Dami Hines DO [Transcribed on: 11/10/2022 14:11 EDT] [facility] Coding Summaryon 11-09-2022 Coding Summary HTMLBase 64 YbtrhdzmADm2bUb+PGhlYW Q+LB0FHQQcF74cuZYfmQ7n Z3DJGYsJQdisCSWIISpURt BngwOtFL9kuPKaUSDe IC8+MX4kADObUtbhiTRet8 N4mDW0G40kpb5qHJeiyDT6 NQKhTwGzyieya9vugQj1MH cuNmluOyBt SFNudU13OIO6uY34Cx24eL UmqNPzk3jfjUo8JjKxNQXw FQR4oAtbIDsaz4DyDHAbG4 4acQNsd0U0 AJHvvGrsaKUfErEjzZP3fL 4xDKtozinlf1vzsxtnAki3 gy56rZHfr0H1qWA3D9Nnfc G7RIUfvRLa NpacbGKYmZ2frlulf7xyif bfCsYgJYNdHMm1DGf6HNKm iVhjCjRjJM59MPK5WZBmgl HoK1KzZTBs yKabBgC8b6V2Fi4QW8RKPw afL5GQIRHRLEhdrVM+PC90 uy47Q3JwMegoSkg2TICuFV V8vDX0uX5d DEWpQRhkg4M2rZS2F2Znro Azmq1cm0zhHXSqIVwoR30k sUImb3Y5CPKvbPK1JXYdgA jeQzRccY57 Oyc+KQCaiAovg1NfLafnr0 dqp5bstQi9NgiwLKSmiyEq xHdrHCF7w1CdHq5oPCDigY K6hPM0gV0k WnNbIqJ2SQsnI227LbFwrU XaYwjyH27zW8RluFD+PHRy Wni0LEMraTfyRS2dJ0FaTB RpbmctbGVm mRkdGF5gHEHysxaxWLJbdZ 3eGTAzR7i4FmGcPyW5AWch B5EbLVOmkiqyQc18hG4uVe QoTfI6LGsc A7GusqD2EYJtlSHnEPxfTJ R9O50ov9P9ZYExHZFpORV2 hTO3dA9idAcyggjrkVNnwJ sgdmVydGlj UGyjIMywG307HMSsyPjoKl NvZGluZyBEYXRlOiAgMDYv MjIvMjAyMzwvdGQ+PHRkIH E3bPweJRSb hWAlFEeoYr9ljDqifGiaQR 0xFRWkckxjRCJqsD7qUCQj vPWzaNgzQZ5vPVKyzpghg1 45YdOpMWE6 GOZtbRPiH1TwzB1uNgSfNX WyBCHwX9QaxFTpOQheC540 CHnnRiS3TINhipAmN7QaOS FsaWduOiB0 w0Q7Hr5Hi5XxuyfzN9IwrU PiMqBqTwziPRb3U1AwLxix dHI+FQ81YVSwXF14DXe5HE L6dZqyIRpz QLZlH7JwrE5nBbZiOYDgCM RkOyc+PHRhYmxlIHdpZHRo HWkmSVApLfLqnKpdQT4oAr 9yZGVyLWNv nZwsjEByBiBtj0cbDIRhDE ihRG8xkXpbP9SxjKR4RYWj d7x0Oz59P96nJ6FssCZ+PG QcvLR9hGR3 pB6zUvYiTrC4KGuiD823Nc FjrCWpKdxjq8tjm5nwyVp2 HiW7PWLjxjNifRwqDJK3y6 UdDs20I85n IHdpZHRoPSIxNSUiIHZhbG cjvn4tfF5iKi3+PGNvbCB3 eGP1kI0aVaTgYxC7XBfqX9 49InRvcCIv Apsoi1pdy9otjId6BaMyIP YfoeDefBfdAHF3o2OlXg03 T3HkdKpky9ZaDah0tp82mJ Adp8O4fGT2 A2KjPXOqaaimxVAibIptKT 0uCECxcgtfSINjaS9jHZAq L3i9BeNuAgQ2HUosG6Abal L7FYRsvJHx GKAtbMDRhN0ihaxep7zbnn ogQjXrMIBtJZl5TUu6LZJl nFkbAiJvOGE4DtC3JGX9fQ XdsA4keGfi tiiejM9jDdv+QDO7tCAefO DBWY1gDneaoPG+PHRkIHN0 lVviZFrsFOGdkL5aWWXxH0 r8DwFuIxK0 TLcpB8UinpX5FKOfnMYtBY YsoBVDpH1focmui4gceyjl AsKaEXQbPAs0BHu8SLDylZ duOiBsZWZ0 CyE8EZF3cJDxfO4zyXdekh tfjE6eCjm+QmlydGggRGF0 JAe5B8IvEnt3KNWhjLieRH 0ncGFkZGlu Kn9fbNfddBzoXC0vSXLqmq ghc736YnZld4bhVOQqfJSe LKanFCJ5Q13wm3Y4QQUaHT OoJKA7qMV6 pQ3wfDakffkxdEAvnRccia WumMhsNLtnLZuuO882IQXt fNkjUhWbSMc5J8DcZsu9AB BgiVwaXC9a kBLxXZmvLp6daBeptApiTY 6vUIAloukib507VaFwb9fo HCKotPRnEScfVWZ5H26my9 J5KUKjKCDx ZPM8bZB0zE2rnJrrxsezhP VmdDsgdmVydGljYWwtYWxp P194ACFuoZsvHvCgeFm4T9 SeSpb2KALu gUttHG1afRGvXAhsDg6wqV wgkSvkKG6iADHuqwkyg296 RkXft7oyDWIqlTSbPZcmTD V5M01dw9N1 JASjDDHcFFE7nDW2kO6yuT lnbjogbGVmdDsgdmVydGlj DBjhYZsbI917YTGtoNioLr BhdGllbnQg QDgiVZa7Z6GcXyrawEG+PC 86KVWzAV88hDNfcHPjp4hp bAb1KxVoCAGbEUN2uYmaYQ qol8JvZQXi D07umFIsz7S7PRRtiHfwaJ VgApYtcUK4uW0zIUbaqnqz f3ioxfgwUhhcd5vxoa58dG 47K87sNTzx ZHRoPSIzMCUiIHZhbGlnbj 7mkQ8wBf8+OMEokNC0hPN7 vT1aSZFuAaA6TCbuV938Hh RvcCIvPjxj v9zss6gwhUj9YjZ3ZKFapi GwlTldLNX0h0AiWa66T65t IHdpZHRoPSIyMCUiIHZhbG jboi6edZ7z Ii8+YXFjfCK8pFJ3oT4cOs QyTtR9SXptQ269AxDoeRDi WfclO75xI5IceKH+PHRyPj e7FOArqPkh JW1lcEEnBRhuKq4bNIN0Li XuGySqSPxbP5YyGGLjfilm qztilJH7YDXrZMAehK76Hq 9udDogMTBw gFAHxC9tzcwwl1fgvkusSo SnBSPwWBp1XUm1JWMzeLez PxUlQRV9XgL6TJN6dBZqyL 1hbGlnbjog gF7nP3VfCFEjiibyIa78oG 4iPlUiIkA0OUvvKzh+Uk9E WnqTGGVqDCXBUPcPX7NfHm BSHDF9R5Ie Aeo3WEAxlPqhTG4gsKZjYQ dhBz5bdYtqoKoyVA1aPAUs tfwwYWCiuL9fMVFnsUQjlA gzDM6cTHMr jvezw715LhRdUPN9MWEnlJ VoX5FitH3lKyOjIGZfCLNy Z4XelUSfJDygI548LAwpIo C4XLAmeaAt O9PnZVGnoWsbQtT9t3Z4Xd 0nAn5wIA7fIDPmOD96TI73 uVVkh5L2kZW3B9ZnPTVtsr ctcmlnaHQ6 UROjCUWvnE16nXFsYNjhVp 4uq6G4b264XSFuNJIarO45 Hg5ruThsYOWtjJKTaR1pxp iid8xsmiqs TfTzHSVeDNv0NBz5IWJaeG yrMrQuCZB4ZaQ2LPP9pKSw aO8miUvejsnefY2nErf+Mj AgWWVhcnM8 P3UvTpf7XOGnaVtgOK9rfI OrTKlcHb6bbTrgfZumCO7g RMXbnagzGJPgzJ8dEBHuzD GeyPxxJL6g FDRjfxgti696VsOdHDR0GB VlmBDvY6IoeU4tKtWeFLMl MJYwC1LfyWKmKSfuT362JX daGuN4UZTj aoNiA6DjAKUmdYaeIpZ1z4 S2Zv7YGY3ILYK9Q9EiLxq1 DSSevZuiID0dfARnFGexMq 1yaWdodDog LV4cQVVejvylGUSgmQ0oJM UdiCVqqKzcDI1hPFBoqvpw l404DcSbANS3OQKxeMJnM8 XgaI7sFeTb OXYyDSVuS2XrnWWeFBrsZ6 60LRayThE8YFTutdEgW5Zd STOgfSjqHeS7l5B0Gi0JQK wvdGQ+PC90 yw00U4BmAedxBgo6LXWwCN M8pYF9pK0kQSMzNZfxb4C0 xHA4M6NotnGdic5vy4jnLI RpFSbbP41n zSQry5U2XHVkpCG8CHWqeO eoDxAseJ09Ukg+PGNvbGdy l5VrImqzl5ntl7losKm2Lt MwJSIgdmFs kWjiIOT5b5McIc71D89vRZ dpZHRoPSIzMCUiIHZhbGln gi6udI0lHd7+LSPufDA4pT O1mE5yAtJd ZsT6ZXxnJ129LrFewLRqBs edy2ner9wbiVc0ZjRwIHSm qiBgxQuqJSO1q5DjIw66I2 HnwMmyc7Uq Mdb1cq57vBMsy7A1nRR5V5 UjEVCqqvcbzUUrrQtuMY0t XMDgfzbpPMYsjQ2iLTKfH4 t9NjGoDqW6 ZDkwX4SojbT1MDGzzXAlCV BmkMKYaU9rxrser9drcuce MsIrELVpVSa9UPm3LLPzxG duOiBsZWZ0 EzR2HYN5rLCcrI1wdCkezt eloN4pFah+UWk4c3ottHNo HN4kbIG4UV45ZC13uKZfm4 Z2bZX2H7Dp WYWkfckaegtpmWT3RAOfTL PjrJ29Eh4wbAabRd6nMVUt UTS2MANlxAXfI5XjyT9nJs AjMDAwMDAw O8OkkSKoWCxmE290FJbfVt A8CXMbpyPhA4OsBAOhmRzc UtT2q7C8Si5LCB97GZ49SX 01eQXvv1R1 tVX3N5AgSPSnpblectvfeU K0JTUgZWUmpI42Bl2vhKfq Sg7fCYKyYTF1WTCfnARhE2 RxyX9sSiLu EUMsZPXfH4MznCAbBGuiT3 24FLkuWkO1FRSxzwXrJ5Cx DZSabBqvQeD0s5S6Xw4JHl 37FS41BG93 iKWib2W7jAQ3C3EkAEEafs gzqknerQL3OUSsBEDczA47 Do7nhPsyMw2rYLJhLOP1BV WypTOsS5Pd oM8kAjZzXQKsURDnH7KgjW ZhMNqmW111URthTvS8KNQj qdYcU0QqMHSzhOxdNfO5n0 S4Xr7HVZjw dxs6K7RmHipaiNN+PC90YW CwKH90tBYrxTDou2pttQo3 IfVeBGTuMAL8bKhwTOxxe5 QpXTNrH12s bGF (more content not included)... [facility] Electronic Messagingon 11-07 Electronic Messaging --- --- --- --- --- --- --- --- --- From: Judy ([email or web address]), Directantonio To: SEN TERESASA SCHOFIELD Sent: 11/07/22 05:41:39 AM EDT Subject: Discharge Summary Ready to View A summary regarding your recent visit is available in the Documents section of your Health Record. [facility] ED Clinical Summaryon 2022 ED Clinical Summary [facility] - Emergency Department [address] [place], [place] [id number] ED Clinical Summary PERSON INFORMATION Name: TERESA ISAACS Age: 22 Years Sex: FEMALE : 2000 MRN: Acct#: Visit Reason: Dog bite: hand; Hand injury - Minor; ANIMAL BITE / L HAND Arrival: 11/06/2022 21:35:49 Discharge: 11/06/2022 22:37:00 LOS: 000 01:02 Check In: 11/06/2022 21:35:49 Checkout:11/06/2022 22:37:00 Address: [address] [place] [address] PCP: Michele Angulo MD PROVIDER INFORMATION Provider Role Assigned Unassigned Dami Hines DO ED Provider 11/06/2022 21:39:27 Drew RN, Ting Valero ED Nurse 11/06/2022 21:45:47 VITALS INFORMATION Vital Sign Triage Latest Temperature Tympanic Temperature Temporal Artery Pulse Rate 89 bpm 89 bpm O2 Sat 98 % 98 % Respiratory Rate 16 br/min 16 br/min Blood Pressure /94 mmHg /94 mmHg MEDICAL INFORMATION Medications Given: Medication Dose Route amoxicillin-clavulanat e (Augmentin 500 mg-125 mg oral tablet) 1 tab(s) PO tetanus/diphth/pertuss (Tdap) adult/adol 0.5 mL IM bacitracin topical 500 unit(s) TOP Allergy Information: No known allergies PHYSICIAN DOCUMENTATION DISCHARGE INFORMATION: Discharge Disposition: Home Discharge Location: Home PATIENT EDUCATION INFORMATION Instructions: Animal Bite, Adult, Wcra-vg-Uuwg Follow-Up: With: Address: When: Michele Angulo [address] [place], [place] [id number] [facility] [email or web address] Within 3 to 5 days Comments: home keep ointment on the wounds Stop the amoxicillin start the augmentin Call Dr Angulo for recheck, or return to the ER, if the hand is not improving. You are welcomed to return anyttime Glenna HINES< ER PHYSICIAN< H Yi [facility] DIAGNOSIS: Animal bite wound Patient Understands: Yes - Patient/family/caregiv er verbalizes understanding of instructions given Comment: [facility] ED Note - Otheron 11-06-2022 ED Note - Other [id number] 22 [id number]#1.0 0OTGTIFF [facility] ED Note - Physicianon 2022 ED Note - Physician Patient: TERESA ISAACS Age: 22 years Sex: FEMALE : 2000 Associated Diagnoses: Animal bite wound Author: Omley, Dami H DO Basic Information Time seen: Date & [...] 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 Disposition: Discharged: time 11/06/2022 22:04:00. Patient was given the following educational materials: Animal Bite, Adult, Ssek-yl-Xnpy. Follow up with: Michele Angulo Within 3 [...] on: 11/12/2022 05:15 EDT] Dami Hines DO [facility] ED Note-Nursingon 11-06-2022 ED Note-Nursing Bacitracin and gauze dressing applied [facility] ED Patient Summaryon 023 ED Patient Summary [facility] - Emergency Department [address] [place] [address] PATIENT DISCHARGE INSTRUCTIONS Patient Information Name: TERESA ISAACS Age: 22 Years Date of : 2000 Reason For Visit: Dog bite: hand; Hand injury - Minor; ANIMAL BITE / L HAND Arrival Time: 11/06/2022 21:35:49 Primary Care Physician: Michele Angulo MD Attending Physician: Dami Hines DO Comment: Visit Diagnosis: Diagnoses This Visit Animal bite wound (T14.8XXA) Dog bite: hand ([id number]) Hand injury - Minor ([id number]) The Pharmacy at [facility] is open Sunday through Sunday from 9A [...] alcohol and/or drug addiction problems; contact the Mental Health & Recovery Board [facility] 11/12 Crisis Hotline -Text 5NOOG yu 047211. If you received any narcotics, sedation, or [...] documents With: Address: When: Michele Angulo [address] [place] [address] Business (1) Within 3 to 5 days Comments: home keep ointment on the wounds Stop the amoxicillin start the augmentin Call Dr Angulo for recheck, or return to the ER, if the hand is not improving. You are welcomed to return anyttime T H ILENE< ER PHYSICIAN< H Yi [facility] Medication Information: The exam and treatment you received today in the [facility] Emergency Department were for an urgent problem and are not intended as complete care. It is important for you to follow up with a doctor, nurse practitioner, or physician?s speech and language assistant for ongoing care. If your symptoms become [...] so we can reach you if necessary. [facility] Emergency Department has provided you with a complete list of medications post discharge. Please inform your assistant teacher primary/provider of your visit and for further instruction on these medications. Any specific questions regarding your chronic medications and dosages should be discussed with your primary care physician(s) and/or pharmacist. New Medications [id number], [address], [place] [id number], [phone] amoxicillin-clavulanat e (Augmentin 500 mg-125 mg oral tablet) 1 [...] 120.200 kg Problems (more content not included)... Normal [facility] ED Clinical Summaryon 2022 ED Clinical Summary [facility] ? Urgent Care [address] [place] [address] Clinical Summary PERSON INFORMATION Name: TERESA ISAACS Age: 22 Years Sex: FEMALE : 2000 MRN: Acct#: Visit Reason: UC - Sore Throat; SORE THROAT, FEVER Arrival: 11/05/2022 11:11:40 Discharge: 11/05/2022 11:36:00 LOS: 000 00:25 Check In: 11/05/2022 11:11:40 Checkout: 11/05/2022 11:36:00 Address: [address] [place], [place] [id number] PCP: Michele Angulo MD PROVIDER INFORMATION Provider Role Assigned Unassigned Foster Moore SINGEING TORCH OPERATOR Nurse 11/05/2022 11:13:30 Lynne Bee PA-C ED [...] Follow-Up: With: Address: When: Michele Angulo MD [address] [place] [address] DIAGNOSIS: 1:Strep pharyngitis Patient Understands: Yes - Patient/family/caregiv er verbalizes understanding of instructions given Comment: Normal [facility] ED Patient Summaryon 023 ED Patient Summary [facility] ? Urgent Care [address] [place] [address] PATIENT DISCHARGE INSTRUCTIONS Patient Information Name: TERESA ISAACS Age: 22 Years Date of : 2000 Reason For Visit: UC - Sore Throat; SORE THROAT, FEVER Arrival Time: 11/05/2022 11:11:40 Primary Care Physician: Michele Angulo MD Attending Physician: Lynne Bee PA-C Comment: Patient Education With: Address: When: Michele Angulo MD [address] [place] [id number] Strep Throat, Adult Strep throat is an [...] these instructions at home: Medicines ? Take pupm-vuk-sosechl and prescription medicines only as told by [...] and water are not available, use hand optimization consultant. Make sure that all people in your [...] right away i (more content not included)... Normal [facility] ANES POSTPROC EVALon 022 ANES POSTPROC EVAL HNO ID: [id number] Author: Kev Chacon APRN.CRNA Service: Anesthesiology Author Type: Nurse Robotics Technician Type: Anesthesia Postprocedure Evaluation Filed: 08/09/2021 11:47 [...] Celio Loja DO Responsible Provider: Kev Chacon APRN.IRON POURER Anesthesia Type: MAC ASA Status: 3 Anesthesia [...] Anesthesia Observations No Documentation SIGNATURE: Kev Chacon APRN.CRNA PATIENT NAME: Teresa Isaacs DATE: August 09, 2021 TIME: 11:46 AM CSN: [id number] Normal [facility] HISTORY PHYSICALon HISTORY PHYSICAL HNO ID: [id number] Author: Celio Loja DO Service: Gastroenterology Author [...] means), based on clinical findings. and EGD (Esophagogastroduodeno scopy) with or without biopsies, removal of polyps [...] Additional Comments: None Celio Loja DO Normal [facility] NURSING PROGon 08-09-2021 NURSING PROG HNO ID: [id number] Author: Francie Power RN Service: Nursing Author [...] Power RN In Department: AMBULATORY SURGERY Normal [facility] NURSING PROG HNO ID: [id number] Author: Elif Bridges RN Service: ? Author [...] Bridges RN In Department: AMBULATORY SURGERY Normal [facility] SURGICAL PATHOLOGYon CASE REPORT Normal [facility] Comment on above: Order Comment: Speci men Type: TISSUE SPECIMEN Ordering Facility: [facility] Address: [address] [place] [address] Result Comment: Surg ical Pathology Report Case: [id number] Authorizing Provider: Celio Loja DO Collected: 08/09/2021 11:27 AM Ordering Location: Ambulatory Surgery Received: 08/09/2021 08:22 PM Pathologist: Van Ng MD Specimens: A) - SMALL INTESTINE BIOPSY, r/o celiac B) - STOMACH BIOPSY, r/o h pylori Performed By: #### S #### [facility] CLIA [id number] [address] [place], [place] [address] [address] OF [facility] FINAL DIAGNOSIS Normal [facility] Comment on above: Order Comment: Valeriei yolanda Type: TISSUE SPECIMEN Ordering Facility: [facility] Address: [address] [place] [address] Result Comment: A. S mall intestine, biopsy: - Duodenal mucosa with no diagnostic abnormality. - Villous architecture is preserved and there is no increase in intraepithelial lymphocytes. B. Stomach, biopsy: - Gastric antral and oxyntic mucosa with no diagnostic abnormality. - There is no evidence of active Helicobacter pylori infection. Performed By: #### S #### [facility] CLIA [id number] [address] [place] [address] OF [facility] FIN[facility] PERFORM[facility] Normal [facility] Comment on above: Order Comment: Speci men Type: TISSUE SPECIMEN Ordering Facility: [facility] Address: [address] [place] [address] Result Comment: Diag nostic interpretation performed at [facility], [address] [place] [address] CLIA# [id number] Blue Line Trimmer: Cristóbal Connelly M.D. Performed By: #### S #### [facility] CLIA [id number] [address] [place] [address] [facility] Comment on above: Order Comment: Speci men Type: TISSUE SPECIMEN Ordering Facility: [facility] Address: [address] [place] [address] Result Comment: A. S MALL INTESTINE BIOPSY. Received in formalin are two pieces of patricio, soft tissue aggregating to 0.9 x 0.3 x 0.2 cm. Totally submitted in one cassette. B. STOMACH BIOPSY. Received in formalin are two pieces of patricio, soft tissue aggregating to 1.0 x 0.3 x 0.2 cm. Totally submitted in one cassette. Gross examination performed at [facility], [address] [place] [address] TTN 08/10/2021 12:06 AM Performed By: #### S #### [facility] CLIA [id number] [address] [place] [address] CNPSonya 08-01-2021 CNPN Telephone (GASTNO) TERESA ISAACS ([id number]) 4 F Date Time Provider Department 08/01/21 [...] Status:Closed by FLORINDA RUSS MA on 08/01/21 [facility] ANES PRE-OPon 07-31-2021 ANES PRE-OP HNO ID: [id number] Author: Kev Chacon APRN.IRON POURER Service: Anesthesiology Author Type: Nurse Robotics Technician Type: Anesthesia Preprocedure Evaluation Filed: 08/09/2021 11:16 [...] results: No results found for this basename: HCT,HEMATOCRIT,K,POTAS SIUM Relevant Problems No relevant active problems THC [...] 48 hours of Surgery/Procedure. SIGNATURE: [place] Bah APRN.LEANNE PATIENT NAME: Teresa Isaacs DATE: July 31, 2021 TIME: 1:13 PM CSN: [id number] [facility] CNOVon 06-17-2021 CNOV Office Visit (GASTNO ) TERESA ISAACS ([id number]) 4 F Date Time Provider Department 06/17/21 [...] that she had been seen over at [facility] and here for similar reason and had [...] have b (more content not included)... Normal [facility] Basic Metabolic Panelon 09-2 Calcium [Mass/Vol] 9.5 mg/dL Normal 8.2-10.2 [facility] Comment on above: Performed By: #### H EPATIC, CBC, BMP, LIPASE #### [address] Chloride [Moles/Vol] 109 mmol/L Normal 95-114 [facility] Comment on above: Performed By: #### H EPATIC, CBC, BMP, LIPASE #### [address] CO2 [Moles/Vol] 18.6 mmol/L Low 22.0-30.0 [facility] Comment on above: Performed By: #### H EPATIC, CBC, BMP, LIPASE #### [address] Creatinine [Mass/Vol] 0.75 mg/dL Normal 0.44-1.03 [facility] Comment on above: Performed By: #### H EPATIC, CBC, BMP, LIPASE #### [address] Creatinine Clr Calc Pharmacy 150.63 [facility] Comment on above: Performed By: #### H EPATIC, CBC, BMP, LIPASE #### [address] Estimated GFR ( Marianela > 60 [facility] Comment on above: Result Comment: GFR estimated reference range: According to KDOQI guidelines, <60 ml/min/1.73m2 is sufficient to diagnose a patient with chronic kidney disease. Performed By: #### H EPATIC, CBC, BMP, LIPASE #### [address] Estimated GFR (Non- Am > 60 [facility] Comment on above: Performed By: #### H EPATIC, CBC, BMP, LIPASE #### [facility] [address] Glucose [Mass/Vol] 94 mg/dL Normal 70-100 [facility] Comment on above: Result Comment: [facility] Glucose Reference Range is dependent on time and content of last meal. Glucose of more than 200 mg/dL in a nonstressed, ambulatory subject supports the diagnosis of Diabetes Mellitus. ADA recommended reference range Performed By: #### H EPATIC, CBC, BMP, LIPASE #### [facility] [address] Potassium [Moles/Vol] 4.3 mmol/L Normal 3.5-5.1 [facility] Comment on above: Performed By: #### H EPATIC, CBC, BMP, LIPASE #### [address] Sodium [Moles/Vol] 137 mmol/L Normal 136-146 [facility] Comment on above: Performed By: #### H EPATIC, CBC, BMP, LIPASE #### [facility] [address] [place] [address] Urea nitrogen [Mass/Vol] 5 mg/dL Low 02-10 [facility] Comment on above: Performed By: #### H EPATIC, CBC, BMP, LIPASE #### [address] abdomen pelvis wo conon 0 02-10-2021 CT abdomen pelvis wo [place] [address] CT Scan Report Signed Patient: Teresa Isaacs MR#: [id number] : 2000 Acct:[id number] Age/Sex: 20 / F ADM Date: 02/10/21 Loc: ER Room: Type: [facility] ER Attending Dr: Ordering Provider: Dami Rizzo [...] Curiel Jr., M.D.02/10/2021 3:27 PM Dictation Location: [place] [address] Transcribed By: [facility] 02/10/21 152 Dictated By: Zachariah Curiel Jr, MD 02/10/21 152 Signed By: 02/10/21 1527 Normal [facility] Complete Blood Count Auto Di ffon 02-10-2021 Basophils (Bld) [#/Vol] 0.1 10*3/uL Normal 0.0-0.1 [facility] Comment on above: Result Comment: PERF ORMED BY: [place] [address] PATHOLOGIST POLICY ADVISER DAYAMI MCFADDEN M.D. Performed By: #### H EPATIC, CBC, BMP, LIPASE #### [facility] [address] [place] [address] Basophils/100 WBC (Bld) 0.6 % Normal . [facility] Comment on above: Performed By: #### H EPATIC, CBC, BMP, LIPASE #### [facility] [address] [place] [address] [place] Eosinophils (Bld) [#/Vol] 0.1 10*3/uL Normal 0.0-0.7 [facility] Comment on above: Performed By: #### H EPATIC, CBC, BMP, LIPASE #### [place] [address] [place] Eosinophils/100 WBC (Bld) 0.6 % Normal . [facility] Comment on above: Performed By: #### H EPATIC, CBC, BMP, LIPASE #### [address] Erythrocyte distribution width (RBC) [Ratio] 13.9 % Normal 11.9-15.3 [facility] Comment on above: Performed By: #### H EPATIC, CBC, BMP, LIPASE #### [address] Hematocrit (Bld) [Volume fraction] 42.0 % Normal 36.0-46.0 [facility] Comment on above: Performed By: #### H EPATIC, CBC, BMP, LIPASE #### [address] Hemoglobin (Bld) [Mass/Vol] 14.1 g/dL Normal 12.0-16.0 [facility] Comment on above: Performed By: #### H EPATIC, CBC, BMP, LIPASE #### [address] Lymphocytes (Bld) [#/Vol] 1.5 10*3/uL Normal 1.20-4.8 [facility] Comment on above: Performed By: #### H EPATIC, CBC, BMP, LIPASE #### [address] Lymphocytes/100 WBC (Bld) 15.0 % Normal . [facility] Comment on above: Performed By: #### H EPATIC, CBC, BMP, LIPASE #### [address] MCH (RBC) [Entitic mass] 30.3 pg Normal 25.0-35.0 [facility] Comment on above: Performed By: #### H EPATIC, CBC, BMP, LIPASE #### [address] MCV (RBC) [Entitic vol] 90.4 fL Normal 78-102 [facility] Comment on above: Performed By: #### H EPATIC, CBC, BMP, LIPASE #### [address] Mean Corpuscular HGB Conc 33.6 g/dL Normal 31.0-37.0 [facility] Comment on above: Performed By: #### H EPATIC, CBC, BMP, LIPASE #### [address] Monocytes (Bld) [#/Vol] 0.3 10*3/uL Normal 0.1-1.00 [facility] Comment on above: Performed By: #### H EPATIC, CBC, BMP, LIPASE #### [address] Monocytes/100 WBC (Bld) 2.5 % Normal . [facility] Comment on above: Performed By: #### H EPATIC, CBC, BMP, LIPASE #### [address] Neutrophils (Bld) [#/Vol] 8.4 10*3/uL High 1.2-7.7 [facility] Comment on above: Performed By: #### H EPATIC, CBC, BMP, LIPASE #### [address] Neutrophils/100 WBC (Bld) 81.3 % Normal . [facility] Comment on above: Performed By: #### H EPATIC, CBC, BMP, LIPASE #### [address] Nucleated RBC/100 WBC (Bld) [Ratio] 0.0 % Normal 0-0.5 [facility] Comment on above: Performed By: #### H EPATIC, CBC, BMP, LIPASE #### [address] Platelet mean volume (Bld) [Entitic vol] 8.1 fL Normal 6.3-10.7 [facility] Comment on above: Performed By: #### H EPATIC, CBC, BMP, LIPASE #### [place] [address] [place] Platelets (Bld) [#/Vol] 293 10*3/uL Normal 150-450 [facility] Comment on above: Performed By: #### H EPATIC, CBC, BMP, LIPASE #### [address] RBC (Bld) [#/Vol] 4.65 10*6/uL Normal 4.10-5.10 [facility] Comment on above: Performed By: #### H EPATIC, CBC, BMP, LIPASE #### [address] WBC (Bld) [#/Vol] 10.3 10*3/uL Normal 4.5-13.5 [facility] Comment on above: Performed By: #### H EPATIC, CBC, BMP, LIPASE #### [address] HCG,Urineon 02-10-2021 Beta HCG ( test) Ql (U) Negative Normal [facility] Comment on above: Order Comment: Name Collection Type:: Clean-Voided Midstream Result Comment: PERF ORMED BY: [place] [address] PATHOLOGIST POLICY ADVISER DAYAMI MCFADDEN M.D. Performed By: #### U HCG, UA #### [address] Hepatic Panelon 02-10-2021 Albumin [Mass/Vol] 3.8 g/dL Normal 3.2-5.5 [facility] Comment on above: Performed By: #### H EPATIC, CBC, BMP, LIPASE #### [address] Albumin/Globulin [Mass ratio] 1.0 {ratio} Normal [facility] Comment on above: Performed By: #### H EPATIC, CBC, BMP, LIPASE #### [address] ALP [Catalytic activity/Vol] 72 U/L Normal 32-92 [facility] Comment on above: Performed By: #### H EPATIC, CBC, BMP, LIPASE #### [facility] [address] ALT [Catalytic activity/Vol] 19 U/L Normal 10-60 [facility] Comment on above: Performed By: #### H EPATIC, CBC, BMP, LIPASE #### [facility] [address] AST [Catalytic activity/Vol] 16 U/L Normal 10-42 [facility] Comment on above: Performed By: #### H EPATIC, CBC, BMP, LIPASE #### [address] Bilirubin [Mass/Vol] 0.6 mg/dL Normal 0.3-1.2 [facility] Comment on above: Performed By: #### H EPATIC, CBC, BMP, LIPASE #### [address] Bilirubin,Indirect 0.5 mg/dL Normal [facility] Comment on above: Performed By: #### H EPATIC, CBC, BMP, LIPASE #### [address] Bilirubin.indirect [Mass/Vol] 0.1 mg/dL Normal 0.0-0.4 [facility] Comment on above: Performed By: #### H EPATIC, CBC, BMP, LIPASE #### [address] Globulin (S) [Mass/Vol] 3.7 g/dL Normal [facility] Comment on above: Performed By: #### H EPATIC, CBC, BMP, LIPASE #### [facility] [address] [place] [address] Protein [Mass/Vol] 7.5 g/dL Normal 6.1-7.9 [facility] Comment on above: Performed By: #### H EPATIC, CBC, BMP, LIPASE #### [facility] [address] [place] [address] Lipaseon 02-10-2021 Lipase [Catalytic activity/Vol] 30.0 U/L Normal 22-51 [facility] Comment on above: Result Comment: PERF ORMED BY: [place] [address] PATHOLOGIST POLICY ADVISER DAYAMI MCFADDEN M.D. Performed By: #### H EPATIC, CBC, BMP, LIPASE #### [facility] [address] [place] [address] [place] Urinalysison 02-10-2021 Appearance (U) Clear Normal Clear [facility] Comment on above: Order Comment: Name Collection Type:: Clean-Voided Midstream Performed By: #### U HCG, UA #### [facility] [address] [place] [address] [place] Bilirubin,Urine Negative Normal Negative [facility] Comment on above: Order Comment: Name Collection Type:: Clean-Voided Midstream Performed By: #### U HCG, UA #### [facility] [address] [place] [address] [place] Color (U) Yellow Normal Yellow [facility] Comment on above: Order Comment: Name Collection Type:: Clean-Voided Midstream Performed By: #### U HCG, UA #### [facility] [address] [place] [address] [place] Glucose Ql (U) Normal Normal Normal [facility] Comment on above: Order Comment: Name Collection Type:: Clean-Voided Midstream Performed By: #### U HCG, UA #### [facility] [address] [place] [address] [place] Ketones Ql (U) Negative Normal Negative [facility] Comment on above: Order Comment: Name Collection Type:: Clean-Voided Midstream Performed By: #### U HCG, UA #### [facility] [address] [place] [address] [place] Leukocyte esterase Test strip Ql (U) Negative Normal Negative [facility] Comment on above: Order Comment: Name Collection Type:: Clean-Voided Midstream Performed By: #### U HCG, UA #### [facility] [address] [place] [address] [place] Nitrite,Urine Negative Normal Negative [facility] Comment on above: Order Comment: Name Collection Type:: Clean-Voided Midstream Performed By: #### U HCG, UA #### [address] Occult Blood,Urine Negative Normal Negative [facility] Comment on above: Order Comment: Name Collection Type:: Clean-Voided Midstream Performed By: #### U HCG, UA #### [address] pH (U) 6.0 [pH] Normal 5.0-9.0 [facility] Comment on above: Order Comment: Name Collection Type:: Clean-Voided Midstream Performed By: #### U HCG, UA #### [address] Protein,Urine Negative Normal Negative [facility] Comment on above: Order Comment: Name Collection Type:: Clean-Voided Midstream Performed By: #### U HCG, UA #### [address] Specificy [place],Urine 1.020 Normal 1.001-1.030 [facility] Comment on above: Order Comment: Name Collection Type:: Clean-Voided Midstream Performed By: #### U HCG, UA #### [address] Urobilinogen,Urine Normal Normal Normal [facility] Comment on above: Order Comment: Name Collection Type:: Clean-Voided Midstream Performed By: #### U HCG, UA #### [address] HCG,Urineon 01-30-2021 Beta HCG ( test) Ql (U) Negative Normal [facility] Comment on above: Order Comment: Name Collection Type:: Clean-Voided Midstream Result Comment: PERF ORMED BY: [place] [address] PATHOLOGIST POLICY ADVISER DAYAMI MCFADDEN M.D. Performed By: #### U HCG, UA #### [address] Urinalysison 01-30-2021 Appearance (U) Clear Normal Clear [facility] Comment on above: Order Comment: Name Collection Type:: Clean-Voided Midstream Performed By: #### U HCG, UA #### [facility] [address] [place] [address] [place] Bilirubin,Urine Negative Normal Negative [facility] Comment on above: Order Comment: Name Collection Type:: Clean-Voided Midstream Performed By: #### U HCG, UA #### [facility] [address] [place] [address] [place] Color (U) Yellow Normal Yellow [facility] Comment on above: Order Comment: Name Collection Type:: Clean-Voided Midstream Performed By: #### U HCG, UA #### [facility] [address] [place] [address] Glucose Ql (U) Normal Normal Normal [facility] Comment on above: Order Comment: Name Collection Type:: Clean-Voided Midstream Performed By: #### U HCG, UA #### [facility] [address] [place] [address] [place] Ketones Ql (U) Trace High Negative [facility] Comment on above: Order Comment: Name Collection Type:: Clean-Voided Midstream Performed By: #### U HCG, UA #### [facility] [address] [place] [address] Leukocyte esterase Test strip Ql (U) Negative Normal Negative [facility] Comment on above: Order Comment: Name Collection Type:: Clean-Voided Midstream Performed By: #### U HCG, UA #### [facility] [address] [place] [address] [place] Nitrite,Urine Negative Normal Negative [facility] Comment on above: Order Comment: Name Collection Type:: Clean-Voided Midstream Performed By: #### U HCG, UA #### [facility] [address] [place] [address] [place] Occult Blood,Urine Negative Normal Negative [facility] Comment on above: Order Comment: Name Collection Type:: Clean-Voided Midstream Performed By: #### U HCG, UA #### [facility] [address] [place] [address] [place] pH (U) 8.0 [pH] Normal 5.0-9.0 [facility] Comment on above: Order Comment: Name Collection Type:: Clean-Voided Midstream Performed By: #### U HCG, UA #### [facility] [address] [id number] [place] Protein,Urine Negative Normal Negative [facility] Comment on above: Order Comment: Name Collection Type:: Clean-Voided Midstream Performed By: #### U HCG, UA #### [facility] [address] Specificy [place],Urine 1.015 Normal 1.001-1.030 [facility] Comment on above: Order Comment: Name Collection Type:: Clean-Voided Midstream Performed By: #### U HCG, UA #### [facility] [address] [id number] [facility] Urobilinogen,Urine Normal Normal Normal [facility] Comment on above: Order Comment: Name Collection Type:: Clean-Voided Midstream Performed By: #### U HCG, UA #### [facility] [address] [place], [place] [id number] [facility] KNEE LEFT 4VWSon 12-19-2017 KNEE LEFT 4VWS [facility] [address] [place] [address] ========Patient Name: TERESA ISAACS : 2000Sex: FAge: Race: OtherMRN: [id number]. Location: 86Patient Status: OVisit #: [id number] Date: 12/19/2017 10:55:00 AMCompleted Date: 12/19/2017 11:09 AMRequesting Provider: MEJIA MADRIGAL Attending Provider: DYLLAN SANDOVAL AM Report Copy To: Signs & Symptoms: M25.562 Pain in left knee [id number]: AthenaComments: , Views (X-RAY, KNEE): AP, Lateral, Tunnel, [place] , Weight Bearing?: Y , Views (X-RAY, KNEE): AP, Lateral, Tunnel, [place] , Weight Bearing?: Y , , , Ordering Provider - MEJIA MADRIGAL MD , Exam: KNEE LEFT 4VWSAccession #: [id number] KNEE LEFT 4VWS 12/19/2017 11:09 AM EDT SIGNS AND SYMPTOMS: M25.562 Pain in left knee I10 TECHNOLOGIST COMMENTS: Patient complains of medial to lateral left knee pain for eight months. Patient states injury to left knee due to sports. QUESTION FOR THE RADIOLOGIST: , Views (X-RAY, KNEE): AP, Lateral, Tunnel, [place] , Weight Bearing?: Y , Views (X-RAY, KNEE): AP, Lateral, Tunnel, [place] , Weight Bearing?: Y , , , Ordering ...More In Sending System PROTOCOL: AP,Lateral,Tunnel and Tangential views were obtained. COMPARISON: None FINDINGS: Soft tissues:Intact Bones:Intact Joints:Very small effusion IMPRESSION: No acute bony abnormality with normal alignment and small effusion Electronically signed by:Mejia Martin. Transcribed by: [email or web address], User Resident: Electronically Signed by: MEJIA MARTIN @ 12/19/2017 01:57 PM Normal [facility] Comment on above: Order Comment: , Ruthann ws (X-RAY, KNEE): AP, Lateral, Tunnel, [place] , Weight Bearing?: Y , Views (X-RAY, KNEE): AP, Lateral, Tunnel, [place] , Weight Bearing?: Y , , , Ordering Provider - MEJIA MADRIGAL MD , Encounters Encounter Date Encounter Type Care Provider Facility Start: 10-23-2023 End: 10-23-2023 ambulatory Michele Angulo Facility:[facility] Start: 10-09-2023 End: 10-09-2023 ambulatory ROBERT GILBERT Not Available Start: 09-19-2023 End: 09-19-2023 ambulatory Michele Angulo Facility:[facility] Start: 09-12-2023 End: 09-12-2023 ambulatory ROBERT GILBERT Not Available Start: 11-06-2022 End: 11-06-2022 Emergency department patient visit Dami Hines Facility:[facility] Start: 11-05-2022 End: 11-05-2022 ambulatory Joss Kev Facility:[facility] Start: 12-19-2017 End: 12-20-2017 Patient encounter DYLLAN SANDOVAL Facility:[facility] Start: 11-05-2017 End: 11-06-2017 Patient encounter DEFAULT PHYSICIAN Facility:[facility] Payers Date Payer Category Payer Unknown [id number] 2022 Medicaid [id number] 2000 Unknown [id number] 2.16.84 [id number] 2002 Unknown [id number] 2.16.84 [id number] 2002 Unknown [id number] 2.16.8 [id number] 2002 Unknown [id number] 2.16.8 [id number] 2002 Unknown [id number] 2.16.8 [id number] Unknown [id number] Unknown History and physical note 10-25-2023 Note Date & Type Note Facility 10-25-2023 Note [id number] FF [facility] Clinical Note 10-23-2023 Note Date & Type Note Facility 10-23-2023 Note Patient Education Materials Foll ows: [facility] Clinical Note 11-06-2022 Note Date & Type Note Facility 11-06-2022 Note Education Materials Infectious Disease Animal Bite, [...] at home: Medicines ? Take or apply cbkr-mqj-kuvjjhj and prescription medicines only as told by [...] cannot use soap and water, use hand optimization consultant. ? Change your bandage. ? Leave stitches [...] provider. Document Revised: 05/12/2022 Document Reviewed: 05/12/2022 [employer] Patient Education ? 2022 [employer] [facility] Clinical Note 11-05-2022 Note Date & [...] Follow these instructions at home: ? Take lpii-crf-nuakkgd and prescription medicines as told by your health care provider. ? Return to your normal activities as told by your health care provider. Ask your health care provider what activities are safe for you. ? Keep all follow-up visits as told by your health care provider. This is important. Contact a health care provider if: ? (more content not included)... [facility] Progress note 06-17-2021 Note Date & Type Note Facility 06-17-2021 Note HNO ID: [id number] Author: Celio Loja, DO Service: ? Author [...] that she had been seen over at [facility] and here for similar reason and had [...] She has bonny (more content not included)... [facility] Summary Purpose Family History No Family History Records FoundNo Family History Records FoundNo Family History Records FoundNo Family History Records FoundNo Family History Records Found Advance Directives No Advanced Directives Records FoundNo Advanced Directives Records FoundNo Advanced Directives Records FoundNo Advanced Directives Records FoundNo Advanced Directives Records Found Additional Source Comments INFORMATION SOURCE (unrecogn ized section and content) DATE CREATED AUTHOR 12/20/2017 [place] DATE CREATED AUTHOR AUTHOR'S ORGANIZ ATION 07/07/2021 [facility] DATE CREATED AUTHOR AUTHOR'S ORGANIZ ATION 08/12/2021 [facility] DATE CREATED AUTHOR AUTHOR'S ORGANIZ ATION 10/11/2023 [facility] DATE CREATED AUTHOR AUTHOR'S ORGANIZ ATION 10/26/2023 [facility] FOR RECORDS PERTAINING TO PATIENTS WHO ARE [...] BE BASED ON THE PRIMARY CLINICAL RECORDS. [employer] provides no warranty or guarantee of the accuracy or completeness of information in this document.
[2023-11-13 20:08] LABS: Age Gdln ACOG Testing Note (.); HPV Aptima Negative (Negative); IGP, rfx Aptima HPV ASCU Note (.)
== END 2023-11-06 19:48 | disposition home or self-care (01) ==
LOC: LAB 19:47
PROVIDERS: PCP Family Medicine; Visit Provider Obstetrics & Gynecology
DX: Z01.419 Encounter for gynecological examination (general) (routine) without abnormal findings (principal)
CPT/HCPCS: 88175